=== PATIENT | female | born 1935 | race Caucasian/White ===

== ENCOUNTER 2017-12-15 14:11 | Emergency (ER) | payer MEDICARE, BC, OTHER ==
[~2017-12-15] VITALS: Ht 167.6 cm; Wt 94.3 kg
--- OUTSIDE RECORDS SUMMARY | ~2017-12-15 | XMS | Clinical Summary ---
Demographics + + + | Address | [address] [place] [address] | | | [place] [address] | + + + | Home Phone | | + + + | Preferred Language | Unknown | + + + | Marital Status | | + + + | Adventist Affiliation | Unknown | + + + | Race | Unknown | + + + | Ethnic Group | Unknown | + + + Author + + + | Author | [facility] | + + + | Organization | [email or web address] | + + + | Address | Unknown | + + + | Phone | Unavailable | + + + Support + + +---------+ + | Name | Relationship | Address | Phone | + + +---------+ + | Mack Nesbitt | ECON | Unknown | | + + +---------+ + | Rosmery Olivas | ECON | Unknown | | + + +---------+ + | Detail,Message | ECON | Unknown | | + + +---------+ + Care Team Providers + +------+ + | Care Splash Line Operator Name | Role | Phone | + +------+ + | Colin Blackwell MD | PP | | + +------+ + Allergies + + + + + + | Active Allergy | Reactions | Severity | Noted | Comments | | | | | Date | | + + + + + + | Sulfa Drugs Cross | Swelling | Medium | 05/13/19 | | | Reactors | | | 13 | | + + + + + + | Lisinopril | Swelling | Medium | 05/13/19 | | | | | | 13 | | + + + + + + Current Medications + + +--------+---------+------+------+-------+ | Prescription | Sig. | Disp. | Refills | Star | End | Statu | | | | | | t | Date | s | | | | | | Date | | | + + +--------+---------+------+------+-------+ | amLODIPine | Take 2.5 mg by mouth | | | | | Activ | | (NORVASC) 5 MG | daily. | | | | | e | | tablet | | | | | | | + + +--------+---------+------+------+-------+ | aspirin 81 MG | Take 81 mg by mouth | | | | | Activ | | tablet | daily. | | | | | e | + + +--------+---------+------+------+-------+ | Multiple | Take 1 tablet by | | | | | Activ | | Vitamins-Minerals | mouth daily. | | | | | e | | (MULTIVITAMIN WITH | | | | | | | | MINERALS) tablet | | | | | | | + + +--------+---------+------+------+-------+ | irbesartan | Take 300 mg by mouth | | | | | Activ | | (AVAPRO) 300 MG | nightly. | | | | | e | | tablet | | | | | | | + + +--------+---------+------+------+-------+ | senna (SENOKOT) | Take 1 tablet by | | | | | Activ | | 8.6 MG tablet | mouth daily. | | | | | e | + + +--------+---------+------+------+-------+ | metoprolol | Take 1 tablet by | 90 | 3 | 04/2 | | Activ | | (LOPRESSOR) 100 MG | mouth daily. | tablet | | 8/20 | | e | | tablet | | | | 17 | | | + + +--------+---------+------+------+-------+ | clopidogrel | Take 1 tablet by | 90 | 1 | 07/1 | | Activ | | (PLAVIX) 75 MG | mouth daily. | tablet | | 7/20 | | e | | tablet | | | | 17 | | | + + +--------+---------+------+------+-------+ | rosuvastatin | Take 1 tablet by | | | 02/2 | | Activ | | (CRESTOR) 40 MG | mouth daily. | | | 8/20 | | e | | tablet | | | | 18 | | | + + +--------+---------+------+------+-------+ Active Problems + + + | Problem | Noted Date | + + + | Impaired glucose tolerance | 05/14/2017 | + + + | Atherosclerotic PVD with intermittent claudication | 10/12/2012 | + + + | Bilateral claudication of lower limb | 05/13/2012 | + + + | PVD (peripheral vascular disease) | | + + + + + | Last Assessment & Plan: PAD, Hx claudication. 79yo | | WF, doing relatively well, she continues to be relatively active, | | she states that she walks daily using the [employer] as her area of | | exercise. She is able to walk around the store. She does admit | | when she first gets started, she will have some claudications, | | she stops and rests resolve, she is able to continue walking | | without any recurrent symptoms. She denies any chest pain, | | palpitations, shortness of breath. She is scheduled to follow-up | | with Dr Munoz. Recently undergoing a Lexiscan nuclear | | perfusion study, images were benign, ejection fraction normal. | | Labs anticipated. Tolerating medications. No changes in | | therapy. Peripheral angiogram, 03/07/2009: 50-60% right common | | iliac, mild diffuse disease R/L SFA's.Last Cath: naLast Echo: | | naLast stress test, 04/26/2015 ([facility]): Lexiscan, no chest | | pain, arrhythmias, ECG (-), images NML, LVEF 76%.ECG, 03/31/2014: | | NSR. | + + + +---+ | Hyperlipidemia | | + +---+ + + | Last Assessment & Plan: Hyperlipidemia, continue current meds | | at current dose (Crestor). Labs anticipated.Lab, 11/01/2014: T | | Chol: 289, LDL-Chol: na, HDL-Chol: 43, Tri | | Liver enzymes NML, K: 4.3, BUN/Cr: 13/0.9, glu: 116 | | HgbA1c: 6.5, WBC: 5.5, H/H: 13.5/39.1, plt: | | 239, ESR: 77 | + + + +---+ | HTN (hypertension) | | + +---+ + + | Last Assessment & Plan: Hypertension, controlled, continue | | current meds at current dose (amlodipine, irbesartan, | | metoprolol). | + + Family History + + +------+ + | Medical History | Relation | Name | Comments | + + +------+ + | Diabetes | Brother | | 2 brothers | + + +------+ + | Heart disease | Father | | | + + +------+ + | Heart disease | Mother | | | + + +------+ + | Hypertension | Mother | | | + + +------+ + + +------+ + + | Relation | Name | Status | Comments | + +------+ + + | Brother | | | | + +------+ + + | Father | | | | + +------+ + + | Mother | | | | + +------+ + + Social History + +-------+ +--------+ + | Tobacco Use | Types | Packs/Day | Years | Date | | | | | Used | | + +-------+ +--------+ + | Former Smoker | | 1.5 | 30 | Quit: 05/13/1982 | + +-------+ +--------+ + + +---+---+---+ | Smokeless Tobacco: | | | | | Never Used | | | | + +---+---+---+ + + | Comments: Quit 30 years ago | + + + + +---------+ + | Alcohol Use | Drinks/We | oz/Week | Comments | | | ek | | | + + +---------+ + | Yes | 0 | 0.0 | 2 drinks 4 times per week | | | Standard | | | | | drinks or | | | | | | | | | | equivalen | | | | | t | | | + + +---------+ + + + + | Sex Assigned at | Date Recorded | | | | + + + | Not on file | | + + + Last Filed Vital Signs + + + + | Vital Sign | Reading | Time Taken | + + + + | Blood Pressure | 120/78 | 05/14/2017 11:44 AM PST | + + + + | Pulse | 69 | 05/14/2017 11:44 AM PST | + + + + | Temperature | 36.4 C (97.5 F) | 10/12/2012 12:07 PM PDT | + + + + | Respiratory Rate | 16 | 05/10/2015 11:07 AM PST | + + + + | Oxygen Saturation | 96% | 05/14/2017 11:44 AM PST | + + + + | Inhaled Oxygen | - | - | | Concentration | | | + + + + | Weight | 90.6 kg (199 lb 12.8 | 05/14/2017 11:44 AM PST | | | oz) | | + + + + | Height | 167.6 cm (5' 6") | 05/14/2017 11:44 AM PST | + + + + | Body Mass Index | 32.25 | 05/14/2017 11:44 AM PST | + + + + Plan of Treatment +--------+---------+ + + + | Date | Type | Specialty | Care Team | Description | +--------+---------+ + + + | 05/06/ | Office | | Catherine Lee, | | | 2019 | Visit | | MD Aylin Groves | | | | | | Dr Vitale, | | | | | | [place] [address] | | | | | | [phone] | | | | | | | | +--------+---------+ + + + + + + + + | Health Maintenance | Due Date | Last Done | Comments | + + + + + | Vaccine: | | | | | Dtap/Tdap/Td (1 - | 7 | | | | Tdap) | | | | + + + + + | Vaccine: Zoster (1 | | | | | of 2) | 8 | | | + + + + + | DEXA SCAN SCREENING | | | | | | 3 | | | + + + + + | Vaccine: | | | | | Pneumococcal 65+ | 3 | | | | Low/Medium Risk (1 | | | | | of 2 - PCV13) | | | | + + + + + | Vaccine: Influenza | | | | | (#1) | 8 | | | + + + + + Results Not on filefrom Last 3 Months Insurance + +--------+ +------+-------+ + | Payer | Benefi | Subscriber | Type | Phone | Address | | | t Plan | ID | | | | | | / | | | | | | | Group | | | | | + +--------+ +------+-------+ + | MEDICARE | MEDICA | [id number] | | | [address] | | | RE | | | | [place] [id number] | | | IP-OP | | | | | + +--------+ +------+-------+ + | PREMERA | PREMER | [id number] | | | [address] [address] | | | A BLUE | 5 | | | [place] | | | CARD | | | | [phone] | + +--------+ +------+-------+ + | - WPS - | CHAMPV | [id number] | | | [address] [address] | | [place] | [place] | | | | [place] | | | | | | | [phone] | + +--------+ +------+-------+ + + +--------+ +--------+ + + | Guarantor Name | Accoun | Relation to | Date | Phone | Billing Address | | | t Type | Patient | of | | | | | | | | | | + +--------+ +--------+ + + | MARRY NESBITT | Person | Self [birth year] Home: | [address] [facility] | | | al/Fam | | 1936 | [phone] | [place] | | | [place] | | | [phone] | [phone] | + +--------+ +--------+ + +
--- OUTSIDE RECORDS SUMMARY | ~2017-12-15 | XMS | Clinical Summary ---
Demographics + + + | Address | [address] [place] [address] | | | [place] [address] | + + + | Home Phone | | + + + | Preferred Language | Unknown | + + + | Marital Status | | + + + | Quaker Affiliation | Unknown | + + + | Race | Unknown | + + + | Ethnic Group | Unknown | + + + Author + + + | Author | [facility] | + + + | Organization | [facility] | + + + | Address | [...] Team Providers + +------+ + | Care Insurance Verification Clerk Name | Role | Phone | + [...] states that she walks daily using the [employer] as her area of | | exercise. [...] | | | | | | [place] [address] | | | | | | [phone] | | | | | | | [...] +------+-------+ + | MEDICARE | MEDICA | [id number] | | | [address] | | | RE | | | | [place] [id number] | | | IP-OP | | | | | + +--------+ +------+-------+ + | PREMERA | PREMER | [id number] | | | [address] [address] | | | A BLUE | 5 | | | [place] | | | CARD | | | | [phone] | + +--------+ +------+-------+ + | - WPS - | CHAMPV | [id number] | | | [address] [address] | | [place] | [place] | | | | [place] | | | | | | | [address] | + +--------+ +------+-------+ + + +--------+ +--------+ + + | Guarantor Name | Accoun | Relation to | Date | Phone | Billing Address | | | t Type | Patient | of | | | | | | | | | | + +--------+ +--------+ + + | MARRY NESBITT | Person | Self [birth year] | Home: | [address] [facility] | | | al/Fam | | 1936 | [phone] | [place] | | | [place] | | | [phone] | [phone] | + +--------+ +--------+ + +
[~2017-12-15 14:11] MED LIST: ASPIRIN EC81 MG PO; CRESTOR20 MG PO; IRBESARTAN300 MG PO; METOPROLOL SUC100 MG PO; NORVASC5 MG PO; PLAVIX75 MG PO; VICODIN 5-3001 EACH PO
--- NOTE | 2017-12-16 06:49 | EKG ---
[facility] [address] [facility] [place], [place] [address] Signed Normal sinus rhythm Normal ECG No previous ECGs available Confirmed by JENNA HONG MD ([id number]) on 12/16/2017 6:49:37 AM Electronically Signed By: JENNA HONG MD 12/16/17 0649 PATIENT NAME: AMANDA NESBITT Electrocardiogram DATE OF : 39 PHYSICIAN: JENNA HONG MD REPORT #: [id number] REPORT IS CONFIDENTIAL AND NOT TO BE RELEASED WITHOUT AUTHORIZATION
== END 2017-12-15 16:45 | disposition home or self-care (01) ==
LOC: ED 14:11
DX: E86.0 Dehydration (principal); R53.1 Weakness; I10 Essential (primary) hypertension; E78.00 Pure hypercholesterolemia, unspecified; Z87.891 Personal history of nicotine dependence; Z88.2 Allergy status to sulfonamides; Z88.8 Allergy status to other drugs, medicaments and biological substances; Z79.899 Other long term (current) drug therapy; Z79.82 Long term (current) use of aspirin
CPT/HCPCS: 36415; 71045; 80053; 81001; 84484; 85025; 93005; 93010; 99284

== ENCOUNTER 2019-10-29 20:58 | Emergency (ER) | payer MEDICARE, BC, OTHER ==
[~2019-10-29] VITALS: Ht 167.6 cm; Wt 88.5 kg
--- OUTSIDE RECORDS SUMMARY | ~2019-10-29 | XMS | Encounter Summary ---
Demographics + + + | Address | [address] [place] [address] | | | [place] [address] | + + + | Home Phone | | + + + | Preferred Language | Unknown | + + + | Marital Status | | + + + | Roman Catholic Affiliation | Unknown | + + + | Race | Unknown | + + + | Ethnic Group | Unknown | + + + Author + + + | Author | [facility] | | | and [place] | + + + | Organization | [facility] | | | and [place] | + + + | Address | Unknown | + + + | Phone | Unavailable | + + + Support + + +---------+ + | Name | Relationship | Address | Phone | + + +---------+ + | Mack Alondra | ECON | Unknown | | + + +---------+ + | Rosmery Brendon | ECON | Unknown | | + + +---------+ + Care Team Providers + +------+ + | Care Barkeeper Name | Role | Phone | + +------+ + PCP | Unavailable | + +------+ + Encounter Details +--------+ + + + + | Date | Type | Department | Care Team | Description | +--------+ + + + + | 03/07/ | Hospital | [facility] | Jerome Haynes MD | Atheroscler-Limb&Cla | | 2009 | Encounter | [facility] | | elías ([facility]) | | | | CLINICAL DECISION | | | | | | [address] | | | | | | [place] | | | | | | [address] | | | | | | [phone] | | | +--------+ + + + + Social History + +-------+ +--------+------+ | Tobacco Use | Types | Packs/Day | Years | Date | | | | | Used | | + +-------+ +--------+------+ | Never Assessed | | | | | + +-------+ +--------+------+ + + + | Sex Assigned at | Date Recorded | | | | + + + | Not on file | | + + + documented as of this encounter Plan of Treatment Not on filedocumented as of this encounter Procedures + +--------+ + + + | Procedure Name | Priori | Date/Time | Associated Diagnosis | Comments | | | ty | | | | + +--------+ + + + | IR ANGIO UPPER/LOWER | Routin | 03/07/2009 | | Results for this | | EXTREMITY | e | 4:37 PM | | procedure are in the | | | | PST | | results section. | + +--------+ + + + documented in this encounter Results IR Angio Upper/Lower Extremity (03/07/2009 4:37 PM PST) + + | Specimen | + + | | + + + + + | Narrative | Performed At | + + + | Located Within [facility] | | | [facility] [address] | | | , | | | [id number]/CARDIOLOGY Patient Name: AMANDA NESBITT Date of | | | : 1935 Medical Record: [id number] Account: | | | [id number] [facility]/U [id number]/ Exam Date/Time: | | | 03/07/2009 02:30 P Ordering Provider: JEROME HAYNES Order | | | Detail: [id number] / / HCL Exam Description: CCL ANGIOGRAPHY | | | EXTREMITY LEDY | | | | | | PROCEDURES 1. Abdominal aortogram. 2. Pelvic angiogram. 3. | | | Bilateral selective lower extremity angiography with distal runoff. | | | INDICATIONS The patient is a very pleasant 73-year-old | | | lady who was suspected of having peripheral vascular disease based on | | | the findings of a coronary angiogram of the abdomen, pelvis, and | | | lower extremities revealing heavily calcified aorta with high | | | suspicion of aortoiliac bifurcation stenosis. The patient was | | | complaining of symptoms of bilateral exertional hip pain. She was | | | subsequently referred to me for a peripheral angiogram in order to | | | confirm the findings of the CT angiogram and in preparation for a | | | revascularization procedure. DESCRIPTION OF PROCEDURE The patient | | | presented to the cardiac catheterization lab in the fasting state. | | | An informed consent was obtained from the patient after explaining | | | the risks and benefits of the procedure as well as alternative | | | options. The risks of bleeding, vascular injury, infection, and even | | | were all discussed with the patient. The right groin area was | | | prepped and draped in the usual sterile fashion and local anesthesia | | | was given to the right groin with 1% lidocaine. A 4-Welsh vascular | | | sheath was inserted in the right femoral artery using modified | | | Seldinger technique. Subsequently a 4-Welsh Omni Flush catheter was | | | advanced over a wire and positioned in the abdominal aorta at the | | | level of the renal artery takeoff. An abdominal aortogram was | | | obtained in the AP projection using 20 mL of contrast. The Omni Flush | | | catheter was positioned at the distal portion of the aorta just | | | above the aortic bifurcation and the pelvic angiogram was obtained in | | | the AP projection using another 20 mL of contrast. Subsequently the | | | Omni Flush catheter was advanced over a Glidewire and positioned in | | | the left common femoral artery. Left lower extremity angiography with | | | distal runoff was then performed. Subsequently the Omni Flush | | | catheter was retrieved over a wire, and the right lower extremity | | | angiography with distal runoff was performed via the side port of the | | | vascular sheath. Multiple angiograms in different angulations was | | | performed of the right superficial femoral artery in order to have a | | | better assessment of the cci-pc-xnuhaw right SFA stenosis. | | | Subsequently an angle-tipped 4-Welsh catheter was advanced over a | | | Glidewire and positioned in the distal aorta. Pressures were recorded | | | and pullback across the right common iliac stenosis was performed, | | | did not reveal any significant pressure gradient across the stenosis. | | | Subsequently the catheter was retrieved over a wire. The sheath was | | | pulled and hemostasis was achieved with manual compression. The | | | patient was transferred out of the catheterization lab in stable | | | condition. FINDINGS ABDOMINAL AORTOGRAM The abdominal aorta | | | had mild diffuse atherosclerotic disease with mild ectasia and | | | diffuse calcification. There was no evidence of significant stenosis | | | or aneurysmal dilatation. Both renal arteries were patent with no | | | evidence of renal artery stenosis. PELVIC ANGIOGRAPHY The pelvic | | | vessels had mild diffuse disease and diffuse calcification. The right | | | common iliac artery had a 50% to 60% heavily calcified stenosis. | | | Hemodynamic assessment revealed no significant pressure gradient | | | across the stenosis. Upon catheter pullback a less than 10 mmHg | | | gradient was noted across that lesion. LEFT LOWER EXTREMITY | | | ANGIOGRAPHY The left superficial femoral artery had mild diffuse | | | disease without any significant obstructive stenosis. The left | | | popliteal artery was patent and there was 3-vessel distal runoff in | | | the left lower extremity. RIGHT LOWER EXTREMITY ANGIOGRAPHY The | | | right superficial femoral artery had mild diffuse calcification. The | | | junction between the mid and the distal right superficial femoral | | | artery had a discrete heavily calcified 65% to 70% stenosis. | | | Three-vessel distal runoff was noted in the right lower extremity. | | | CONCLUSION Peripheral vascular disease as described above with the | | | most significant stenosis estimated at 70% and located at the | | | junction between the mid and the distal right superficial femoral | | | artery. RECOMMENDATION The patient denied any exertional symptoms | | | affecting her calves. The most significant stenosis was noted in the | | | right xqi-qe-ddpsxo superficial femoral artery. That lesion could | | | not explain the patient's symptoms. The right common iliac stenosis | | | was of a borderline significance, with no evidence of significant | | | gradient across it. It appears that the vascular anatomy does not | | | explain the patient's symptoms of bilateral exertional hip pain. At | | | this point in time I would recommend medical therapy and aggressive | | | risk factor modification. Revascularization with percutaneous | | | intervention to the right superficial femoral artery will be a | | | feasible option if the patient develops more typical right lower | | | extremity claudication. ESTIMATED BLOOD LOSS Less than 50 mL. | | | Read by JEROME HAYNES MD 03/07/2009 09:23 P Electronically | | | Signed by JEROME HAYNES MD 03/30/2009 09:11 P | | | 09:23 P A /[email or web address]/[id number]/ cc: ASHLEY MCDANIEL, | | | MD JEROME HAYNES MD | | + + + + + | Procedure Note | + + | Graeme Montilla - 11/09/2018 3:20 AM PDT | | Located Within [facility] | | [facility] [address] | | , | | | | [id number]/CARDIOLOGY | | | | Patient Name: AMANDA NESBITT | | Date of : 1935 | | Medical Record: [id number] | | Account: [id number] | | OPS/CDU [id number]/ | | | | | | Exam Date/Time: 03/07/2009 02:30 P | | Ordering Provider: JEROME HAYNES | | Order Detail: [id number] / / HCL | | Exam Description: CCL ANGIOGRAPHY EXTREMITY LEDY | | | | PROCEDURES | | 1. Abdominal aortogram. | | 2. Pelvic angiogram. | | 3. Bilateral selective lower extremity angiography with distal runoff. | | | | INDICATIONS | | The patient is a very pleasant 73-year-old lady who was | | suspected of having peripheral vascular disease based on the findings of | | a coronary angiogram of the abdomen, pelvis, and lower extremities | | revealing heavily calcified aorta with high suspicion of aortoiliac | | bifurcation stenosis. The patient was complaining of symptoms of | | bilateral exertional hip pain. She was subsequently referred to me for a | | peripheral angiogram in order to confirm the findings of the CT | | angiogram and in preparation for a revascularization procedure. | | | | DESCRIPTION OF PROCEDURE | | The patient presented to the cardiac catheterization lab in the fasting | | state. An informed consent was obtained from the patient after | | explaining the risks and benefits of the procedure as well as | | alternative options. The risks of bleeding, vascular injury, infection, | | and even were all discussed with the patient. The right groin area | | was prepped and draped in the usual sterile fashion and local anesthesia | | was given to the right groin with 1% lidocaine. A 4-Welsh vascular | | sheath was inserted in the right femoral artery using modified Seldinger | | technique. Subsequently a 4-Welsh Omni Flush catheter was advanced over | | a wire and positioned in the abdominal aorta at the level of the renal | | artery takeoff. An abdominal aortogram was obtained in the AP projection | | using 20 mL of contrast. The Omni Flush catheter was positioned at the | | distal portion of the aorta just above the aortic bifurcation and the | | pelvic angiogram was obtained in the AP projection using another 20 mL | | of contrast. Subsequently the Omni Flush catheter was advanced over a | | Glidewire and positioned in the left common femoral artery. Left lower | | extremity angiography with distal runoff was then performed. | | Subsequently the Omni Flush catheter was retrieved over a wire, and the | | right lower extremity angiography with distal runoff was performed via | | the side port of the vascular sheath. Multiple angiograms in different | | angulations was performed of the right superficial femoral artery in | | order to have a better assessment of the ylw-fi-hfoyqm right SFA | | stenosis. Subsequently an angle-tipped 4-Welsh catheter was advanced | | over a Glidewire and positioned in the distal aorta. Pressures were | | recorded and pullback across the right common iliac stenosis was | | performed, did not reveal any significant pressure gradient across the | | stenosis. Subsequently the catheter was retrieved over a wire. The | | sheath was pulled and hemostasis was achieved with manual compression. | | The patient was transferred out of the catheterization lab in stable | | condition. | | | | FINDINGS | | | | ABDOMINAL AORTOGRAM | | The abdominal aorta had mild diffuse atherosclerotic disease with mild | | ectasia and diffuse calcification. There was no evidence of significant | | stenosis or aneurysmal dilatation. Both renal arteries were patent with | | no evidence of renal artery stenosis. | | | | PELVIC ANGIOGRAPHY | | The pelvic vessels had mild diffuse disease and diffuse calcification. | | The right common iliac artery had a 50% to 60% heavily calcified | | stenosis. Hemodynamic assessment revealed no significant pressure | | gradient across the stenosis. Upon catheter pullback a less than 10 mmHg | | gradient was noted across that lesion. | | | | LEFT LOWER EXTREMITY ANGIOGRAPHY | | The left superficial femoral artery had mild diffuse disease without any | | significant obstructive stenosis. The left popliteal artery was patent | | and there was 3-vessel distal runoff in the left lower extremity. | | | | RIGHT LOWER EXTREMITY ANGIOGRAPHY | | The right superficial femoral artery had mild diffuse calcification. The | | junction between the mid and the distal right superficial femoral artery | | had a discrete heavily calcified 65% to 70% stenosis. Three-vessel | | distal runoff was noted in the right lower extremity. | | | | CONCLUSION | | Peripheral vascular disease as described above with the most significant | | stenosis estimated at 70% and located at the junction between the mid | | and the distal right superficial femoral artery. | | | | RECOMMENDATION | | The patient denied any exertional symptoms affecting her calves. The | | most significant stenosis was noted in the right sgv-dd-oajvsv | | superficial femoral artery. That lesion could not explain the patient's | | symptoms. The right common iliac stenosis was of a borderline | | significance, with no evidence of significant gradient across it. It | | appears that the vascular anatomy does not explain the patient's | | symptoms of bilateral exertional hip pain. At this point in time I would | | recommend medical therapy and aggressive risk factor modification. | | Revascularization with percutaneous intervention to the right | | superficial femoral artery will be a feasible option if the patient | | develops more typical right lower extremity claudication. | | | | ESTIMATED BLOOD LOSS | | Less than 50 mL. | | | | | | Read by | | JEROME HAYNES MD 03/07/2009 09:23 P | | Electronically Signed by | | JEROME HAYNES MD 03/30/2009 09:11 P | | | | P | | A | | /[email or web address]/[id number]/ | | cc: ASHLEY MCDANIEL MD | | JEROME HAYNES MD | + + documented in this encounter Visit Diagnoses + + | Diagnosis | + + | Atherosclerosis of [place] arteries of the extremities with intermittent claudication | + + documented in this encounter"
--- OUTSIDE RECORDS SUMMARY | ~2019-10-29 | XMS | Encounter Summary ---
Demographics + + + | Address | [address] [place] [address] | | | [place] [address] | + + + | Home Phone | | + + + | Preferred Language | Unknown | + + + | Marital Status | | + + + | Yazidism Affiliation | Unknown | + + + | Race | Unknown | + + + | Ethnic Group | Unknown | + + + Author + + + | Author | [facility] | | | and [place] | + + + | Organization | [facility] | | | and [place] | + + + | Address | Unknown | + + + | Phone | Unavailable | + + + Support + + +---------+ + | Name | Relationship | Address | Phone | + + +---------+ + | Mack Cantu | ECON | Unknown | | + + +---------+ + | Rosmery Kristoferinocencia | ECON | Unknown | | + + +---------+ + Care Team Providers + +------+ + | Care Shell Trim Tool Setter Name | Role | Phone | + +------+ + | Miquel Greenfield DO | PCP | | + +------+ + Encounter Details +--------+ + + + + | Date | Type | Department | Care Team | Description | +--------+ + + + + | 05/06/ | Orders Only | [facility] | Catherine Lee, | | | 2019 | | CARDIOLOGY [place] | MD [address] | | | | | [address] | [place], [place] | | | | | [place], [place] | [address] | | | | | [address] | | | | | | [phone] | | | +--------+ + + + + Social History + +-------+ +--------+------+ | Tobacco Use | Types | Packs/Day | Years | Date | | | | | Used | | + +-------+ +--------+------+ | Former Smoker | | 1.5 | | | + +-------+ +--------+------+ + + | Comments: Quit 30 years ago | + + + + + | Sex Assigned at | Date Recorded | | | | + + + | Not on file | | + + + documented as of this encounter Plan of Treatment Not on filedocumented as of this encounter Visit Diagnoses Not on filedocumented in this encounter"
--- OUTSIDE RECORDS SUMMARY | ~2019-10-29 | XMS | Encounter Summary ---
Demographics + + + | Address | [address] [place] [address] | | | [place] [address] | + + + | Home Phone | | + + + | Preferred Language | Unknown | + + + | Marital Status | | + + + | Islam Affiliation | Unknown | + + + | Race | Unknown | + + + | Ethnic Group | Unknown | + + + Author + + + | Author | [facility] | | | and [place] | + + + | Organization | [facility] | | | and [...] Team Providers + +------+ + | Care Derrick Builder Name | Role | Phone | + +------+ + | Miquel Greenfield DO | PCP | | + +------+ + Encounter Details +--------+ + + + + | Date | Type | Department | Care Team | Description | +--------+ + + + + | 05/16/ | Orders Only | [facility] | Catherine Lee, | | | 2018 | | CARDIOLOGY [place] | MD [address] | | | | | [address] | [place], [place] | | | | | [place], [place] | [address] | | | | | [address] | | | | | | [phone] | | | +--------+ + + + [...] | + +--------+ + + + | LIPID PANEL | Routin | 05/16/2017 | | Results for this | | | e | 10:20 AM | | procedure are in the | | | | PST | | results section. | + +--------+ + + + | HEMOGLOBIN A1C | Routin | 05/16/2017 | | Results for this | | | e | 10:20 AM | | procedure are in the | | | | PST | | results section. | + +--------+ + + + | COMPREHENSIVE | Routin | 05/16/2017 | | Results for this | | METABOLIC PANEL | e | 10:20 AM | | procedure are in the | | | | PST | | results section. | + +--------+ + + + documented in this encounter Results Hemoglobin A1C (05/16/2017 10:20 AM PST) + + + + + + | Component | Value | Ref Range | Performed | Pathologist | | | | | At | Signature | + + + + + + | Hemoglobin | 6.1Comment: EST AVG | % | EXTERNAL | | | A1c | GLUCOSE 128 mg/dL | | LAB | | + + + + + + + + | Specimen | + + | Blood specimen | | (specimen) | + + + +---------+ + + | Performing | Address | City/State/Zipcode | Phone Number | | Organization | | | | + +---------+ + + | EXTERNAL LAB | | | | + +---------+ + + Lipid Panel (05/16/2017 10:20 AM PST) + +---------+ + + + | Component | Value | Ref Range | Performed | Pathologist | | | | | At | Signature | + +---------+ + + + | Cholesterol | 180 | 200 mg/dL | EXTERNAL | | | | | | LAB | | + +---------+ + + + | Triglycerid | 159 (A) | 30 - 150 mg/dL | EXTERNAL | | | es | | | LAB | | + +---------+ + + + | HDL | 55.1 | 40 mg/dl | EXTERNAL | | | | | | LAB | | + +---------+ + + + | LDL, | 93 | 100 mg/dL | EXTERNAL | | | Calculated | | | LAB | | + +---------+ + + + | LDl/HDL | | | EXTERNAL | | | Ratio | | | LAB | | + +---------+ + + + | Chol/HDL | 3.3 | 4.4 | EXTERNAL | | | Ratio | | | LAB | | + +---------+ + + + | VLDL | 32 | 4 - 40 mg/dL | EXTERNAL | | | | | | LAB | | + +---------+ + + + | Non HDL | 125 | 130 | EXTERNAL | | | Chol. | | | LAB | | | (LDL+VLDL) | | | | | + +---------+ + + + + + | Specimen | + + | Blood specimen | | (specimen) | + + + +---------+ + + | Performing | Address | City/State/Zipcode | Phone Number | | Organization | | | | + +---------+ + + | EXTERNAL LAB | | | | + +---------+ + + Comprehensive Metabolic Panel (05/16/2017 10:20 AM PST) + +-------+ + + + | Component | Value | Ref Range | Performed | Pathologist | | | | | At | Signature | + +-------+ + + + | Glucose, | 93 | 70 - 100 mg/dL | EXTERNAL | | | Fasting | | | LAB | | + +-------+ + + + | BUN | 18.8 | 6.0 - 28.6 | EXTERNAL | | | | | mg/dL | LAB | | + +-------+ + + + | Creatinine | 0.85 | 0.70 - 1.18 | EXTERNAL | | | | | mg/dL | LAB | | + +-------+ + + + | BUN/Creatin | 18.8 | 6.0 - 28.6 | EXTERNAL | | | ine Ratio | | | LAB | | + +-------+ + + + | Calcium | 9.5 | 8.4 - 10.2 | EXTERNAL | | | | | mg/dL | LAB | | + +-------+ + + + | Protein, | 6.4 | 6.0 - 8.0 g/dL | EXTERNAL | | | Total | | | LAB | | + +-------+ + + + | Albumin | 3.7 | 3.5 - 5.0 | EXTERNAL | | | | | | LAB | | + +-------+ + + + | Globulin | 2.7 | 1.8 - 3.5 | EXTERNAL | | | | | | LAB | | + +-------+ + + + | A/G Ratio | 1.4 | 1.1 - 2.4 | EXTERNAL | | | | | | LAB | | + +-------+ + + + | Bilirubin | 0.8 | 0.0 - 1.2 mg/dL | EXTERNAL | | | Total | | | LAB | | + +-------+ + + + | ALP, | 57 | 31 - 130 | EXTERNAL | | | External | | | LAB | | + +-------+ + + + | ALT | 26 | 7 - 52 U/L | EXTERNAL | | | | | | LAB | | + +-------+ + + + | AST | 27 | 13 - 39 U/L | EXTERNAL | | | | | | LAB | | + +-------+ + + + | Na | 132 | 132 - 143 | EXTERNAL | | | | | mmol/L | LAB | | + +-------+ + + + | K | 4.7 | 3.6 - 5.1 | EXTERNAL | | | | | mmol/L | LAB | | + +-------+ + + + | Cl | 95 | 95 - 112 mmol/L | EXTERNAL | | | | | | LAB | | + +-------+ + + + | CO2 | 25 | 19 - 31 mmol/L | EXTERNAL | | | | | | LAB | | + +-------+ + + + | Anion Gap | 16.7 | 7 - 21 mmol/L | EXTERNAL | | | | | | LAB | | + +-------+ + + + | Estimated | 65 | 60 mg/dL | EXTERNAL | | | GFR | | | LAB | | + +-------+ + + + + + | Specimen | + + | Blood specimen | | (specimen) | + + + +---------+ + + | Performing | Address | City/State/Zipcode | Phone Number | | Organization | | | | + +---------+ + + | EXTERNAL LAB | | | | + +---------+ + + documented in this encounter Visit Diagnoses Not on filedocumented in this encounter"
--- OUTSIDE RECORDS SUMMARY | ~2019-10-29 | XMS | Encounter Summary ---
Demographics + + + | Address | [id number] [place] [address] | | | [place] [address] | + + + | Home Phone | | + + + | Preferred Language | Unknown | + + + | Marital Status | | + + + | Pentecostal Affiliation | Unknown | + + + | Race | Unknown | + + + | Ethnic Group | Unknown | + + + Author + + + | Author | [facility] | | | and [place] | + + + | Organization | [facility] | | | and [place] | + + + | Address | Unknown | + + + | Phone | Unavailable | + + + Support + + +---------+ + | Name | Relationship | Address | Phone | + + +---------+ + | Mack Delicia | ECON | Unknown | | + + +---------+ + | Rosmery Brendon | ECON | Unknown | | + + +---------+ + Care Team Providers + +------+ + | Care Rn Occupational Name | Role | Phone | + +------+ + PCP | Unavailable | + +------+ + Encounter Details +--------+ + + + + | Date | Type | Department | Care Team | Description | +--------+ + + + + | 10/12/ | Hospital | [facility] | Conversion | Atherosclerotic PVD | | 2012 | Encounter | [facility] | Transaction, | with intermittent | | | | CLINICAL DECISION | Provider Unknown | claudication (HCC) | | | | [address] | [phone] | | | | | [place], [place] | | | | | | [address] | Eddy Douglas, | | | | | [phone] | [address] | | | | | | [place], [place] | | | | | | [address] | | | | | | | | +--------+ + + + [...] + + documented as of this encounter Medications at Time of Discharge + + + +---------+ + + | Medication | Sig | Dispensed | Refills | Start | End Date | | | | | | Date | | + + + +---------+ + + | aspirin (ASPIRIN | Take 81 mg by mouth | | 0 | 05/13/19 | | | LOW DOSE) 81 MG | daily. | | | 13 | | | tablet | | | | | | + + + +---------+ + + | Multiple | Take 1 tablet by | | 0 | 05/13/19 | | | Vitamins-Minerals | mouth daily. | | | 13 | 0 | | (MULTIVITAMIN WITH | | | | | | | MINERALS) tablet | | | | | | + + + +---------+ + + documented as of this encounter Progress Notes Conversion Transaction, Provider Unknown - 10/12/2012 5:32 PM PDTFormatting of this note m ight be different from the original. Progress Notes by Coreen Aguirre RN at 10/12/121731 Author: Coreen Aguirre RN Service: (none) Author Type: Registered Nurse Filed: 10/12/121731 Date of Service: 10/12/121731 Status: Signed Senior Account Representative: Coreen Aguirre RN (Registered Nurse) D/c instructions given and discussed, Pt. States understanding no further questions. Site c/di/ and soft. Pt. granddaughter providing transportation home. Coreen Aguirre RN docume nted in this encounter H&P Notes Jeffy Douglas MD, MD - 10/12/2012 10:44 AM PDTFormatting of this note might be diffe rent from the original. H&P by Eddy Douglas MD at 10/12/12 1041 Author: Eddy Douglas MD Service: (none) Author Type: Physician Filed: 10/12/12 1049 Date of Service: 10/12/121043 Status: Addendum Senior Account Representative: Eddy Douglas MD (Physician) Related Notes: Original Note by Eddy Douglas MD (Physician) filed at 10/12/12 1048 [facility] Service: Interventional Radiology Admission History & Physical Date of Admission: 10/12/2012 Requesting Physician: MD Sita, Interventional Radiology Reason for Admission: Right leg rest pain History Obtained From: patient HPI: She is a pleasant 77 yr old white female with known PVD and prior left EIA stenting in 04/29. Now, she presents with right LE claudication and mild left LE claudication. Claudi cation distance is 2 blocks. She has no rest pain . No tissue loss. REVIEW OF SYSTEMS:. 14 point system review was significant for :EYES:. Cataracts. Car diac/Vascular:. High blood pressure. High cholesterol. Swelling in feet and hands. L eg pain while walking. Musculoskeletal:. Arthritis. Allergy/Immunology:. sulfa drugs . Past Medical History Diagnosis Date PVD (peripheral vascular disease) Hyperlipidemia HTN (hypertension) Arthritis UTI (lower urinary tract infection) Past Surgical History Procedure Date Hysterectomy Bladder surgery Rectal surgery Allergies Allergen Reactions Sulfa Drugs Cross Reactors Swelling Zestril (Lisinopril) Swelling Prescriptions prior to admission Medication Sig Dispense Refill amLODIPine (NORVASC) 5 MG tablet Take 5 mg by mouth 2 (two) times daily. aspirin 81 MG tablet Take 81 mg by mouth daily. Stlbhhh-Kwtjrklxp-Bhzy 1000-400-15 MG TABS Take by mouth 3 (three) times daily. Cholecalciferol (D3 ADULT PO) Take by mouth. clopidogrel (PLAVIX) 75 MG tablet Take 75 mg by mouth daily. Flaxseed, Linseed, (FLAX SEEDS PO) Take by mouth daily. metoprolol (LOPRESSOR) 100 MG tablet Take 100 mg by mouth daily. Multiple Vitamins-Minerals (MULTIVITAMIN WITH MINERALS) tablet Take 1 tablet by mouth d aily. pravastatin (PRAVACHOL) 80 MG tablet Take 80 mg by mouth daily. telmisartan (MICARDIS) 80 MG tablet Take 80 mg by mouth daily. Family History Problem Relation Age of Onset Diabetes Brother 2 brothers Hypertension Mother Heart disease Mother Heart disease Father History Social History Marital Status: Spouse Name: N/A Number of Children: N/A Years of Education: N/A Occupational History Not on file. Social History Main Topics Smoking status: Former Smoker -- 1.5 packs/day for 30 years Quit date: 05/13/1982 Smokeless tobacco: Not on file Comment: Quit 30 years ago Alcohol Use: Yes 2 drinks 4 times per week Drug Use: No Sexually Active: Not on file Other Topics Concern Not on file Social History Narrative No narrative on file PHYSICAL EXAM Vital Signs: BP 140/102 | Pulse 77 | Temp 97.1 F (36.2 C) (Skin) | Resp 16 | Ht 1.676 m (5' 6") | Wt 86.183 kg (190 lb) | BMI 30.67 kg/m2 | SpO2 96% Objective General: Normotensive, in no acute distress. Head: Normocephalic, no lesions. Eyes: PER RLA, EOM's full, conjunctivae clear, fundi grossly normal. Ears: EAC's clear, TM's normal. Nose: Mucosa normal, no obstruction. Throat: Clear, no exudates, no lesions. Neck: Nair pple, no masses, no thyromegaly, no bruits. Chest: Lungs clear, no rales, no rhonchi, no w heezes. Heart: RR, no murmurs, no rubs, no gallops. Abdomen: Soft, no tenderness, no mas ses, BS normal. : Normal, no lesions, no discharge, no hernias noted. Extremities: FRO M, no deformities, no edema, no erythema. Pulses: Both F[employer] and left poplteal are felt. Lef t DP is weak. Rest not felt. Neuro: Physiological, no localizing findings. Skin: Normal, n o rashes, no lesions noted. [facility] ANGIOPLASTY FEMORAL POPLITEAL 05/13/2012 10:20 AM HISTORY:76 years. F emale. Bilateral lower extremity claudication with claudication distal lese than half a blo ck. MEDICATIONS: Isovue 250 135 cc, heparin 6000 units intravenous, Versed 2 milligram int ravenous, Fentanyl 100 microgram intravenous. Radiation dose 694 Clementina Sánchez. Fluoroscopy t zachariah 12.8 minutes. Intra procedure sedation time 65 minutes. Appropriate physiologic monito ring, maintenance of adequate conscious sedation and independent senior care supervision performed throughout the procedure. No adverse drug reactions. PROCEDURE:Informed writt en consent obtained from the patient after explaining the procedure, risks and alternatives. Patient understood the discussion and expressed her wish to proceed. The appropriate barbara e and site was labeled and initialed as an independent process antecedent to the imaging and intervention, as per protocol at this institution.? Patient was placed supine on the x-ra y table. Right groin prepped in the usual sterile fashion. Skin and subcutaneous tissues in filtrated with 1% lidocaine. Right common femoral artery was localized under real-time son ographic guidance and accessed using micropuncture needle and exchanged for 4-Chinese micropu ncture sheath over 0.018 wire. 4-Chinese micropuncture sheath was exchanged for 4-Chinese by 11-cm sheath over 0.035, 3-mm J-wire. Subsequently, 4-Chinese Omni flush catheter placed wit h its tip at the L1 vertebral level and abdominal pelvic arteriogram obtained in frontal pro jection. Subsequently, catheter was repositioned the L3 vertebral level and pelvic arteriog lindsey obtained in left anterior oblique and right anterior oblique projections. Omni flush cat heter was advanced over 0.035 angled Glidewire with its tip in the left common femoral arter y. Subsequently, selective Left lower extremity arteriogram obtained from left common femor al artery to left foot. Given the hemodynamically significant stenosis in proximal and midd le and distal thirds of the right superficial femoral artery and preocclusive stenoses of th e ostium of the left the superficial femoral artery, we decided to perform endovascular inte rvention. 4-Chinese Omni flush catheter was exchanged for 0.035, Amplatz wire with its tip in proximal left superficial femoral artery. Subsequently, catheter was removed and 4-Chinese by 11 cm sheath was exchanged for 5-Chinese by 45-cm destination sheath with its tip in proxi mal left common femoral artery. Subsequently, using combination of 4-Chinese vertebral joselito ter and 0.035, Amplatz wire both were advanced to distal left popliteal artery. Subsequentl y, Amplatz wire was exchanged for 0.014, mailman wire. Vertebral catheter was exchanged for 5 mm x 10 cm balloon catheter and balloon angioplasty of the entire length of the left supe rvision femoral artery performed in a distal to proximal fashion. Post angioplasty left thi gh arteriogram obtained. Then, pullback pressures obtained through the left external iliac artery and the proximal left common iliac artery. There was 25-mm gradient across the proxi mal left external iliac artery. Subsequently, 0.014, mailman wire was exchanged for 0.035, Amplatz wire. 5-Chinese destination sheath was exchanged for 6-Chinese by 45-cm destination s margaret. Subsequently, 8 mm x 6 cm self-expanding stent was placed across the significant foc al stenosis in proximal and mid left external iliac artery and a post angioplasty balloon di latation performed using 7 mm x 4 cm balloon catheter. Post angioplasty left iliac arteriog lindsey obtained by injecting through the side arm of the 6-Chinese destination sheath. Subseque ntly, pullback pressures obtained across the proximal right common iliac artery. There was no significant gradient. Subsequently, all catheters and wires were removed and right groin hemostasis obtained using Mynx closure device. Patient tolerated the procedure with no pro cedural complications. FINDINGS:1. Real-time image documenting the entry of micropuncture n eedle into the widely patent right common femoral artery was obtained and copy of the image placed in patient's medical records.2. Abdominal aortogram: Single left renal artery and s jan right renal artery are widely patent. Infrarenal aorta is widely patent. 50%, eccent kesha, calcific stenosis of the proximal right common iliac artery. Left common iliac artery widely patent. Ostial occlusion the left internal iliac artery. Right internal iliac arter y is widely patent. Right external iliac artery is widely patent. Focal, 70% stenosis of th e proximal and mid left external iliac artery.3. Left the lower extremity arteriogram: Preo cclusive calcific stenosis of the distal left common femoral artery extending to left the nair perficial femoral artery ostium. Focal, pre-it was a calcific stenosis in proximal, mid and distal left the superficial femoral artery. Left the popliteal artery is widely patent. T hree-vessel continuous runoff to left foot.4. Right lower extremity arteriogram: Right comm on femoral artery is widely patent. Right profunda femoris artery and its branches are unre markable. Right proximal and mid supervision femoral artery is widely patent. Diffuse calc ific, more than 70% stenosis of the distal third. Right popliteal artery, 3 vessel runoff w idely patent to right foot.5. Successful angioplasty the multifocal preocclusive stenosis i n left distal portion femoral artery using 5-mm balloon angioplasty. Successful stenting of the focal, tandem, more than 70% stenosis with 36 -mm gradient in left extra iliac artery u sing 8-mm by 6-cm self-expanding stent with no residual stenosis or gradient. 6. Aortic pres sure: 153/67 mm Hg, left distal extra iliac artery pressure: 121/73, proximal left common il iac artery pressure: 157/78, right external iliac artery pressure: 150/74 millimeters Hg. IMPRESSION:1. Successful abdominal aortogram and bilateral lower extremity arteriogram.2. Successful angioplasty of the significant multifocal preocclusive stenosis in left distal p ortion femoral artery and stenting of the femur neck is significant stenosis in left externa l iliac artery without incidence.3. Patient to return to clinic after two weeks. If patien t has persistent left lower extremity claudication may consider surgical left distal common femoral artery endarterectomy of the calcific plaque.4. Will plan for right superficial fem oral artery endovascular intervention during two weeks for follow up. Electronically sign ed by Eddy Douglas MD on 05/13/2012 12:31 PM Assessment 440.21 RIght LE claudication. Plan Right LE claudication. She would be a candidate for right LE angiogram and intervention for distal right SFA stenosis.We discussed the procedure, risks ( Bleeding, infection, contrast allergy, nephropathy, stroke, PR and ) and alternative options. Moderate Sedation Presedation Assessment completed. ASA Classification: ASA 2: Patient with a mild systemic disease Mallampati Classification: II: Visibility of hard and soft palate, upper portion of tonsil s and uvula Disposition: Cathlab Code Status: Prior Primary Care Physician: ASHLEY DOUGLAS MD 10/12/2012 documented i n this encounter Plan of Treatment Not on filedocumented as of this encounter Procedures + +--------+ + + + | Procedure Name | Priori | Date/Time | Associated Diagnosis | Comments | | | ty | | | | + +--------+ + + + | IR AORTOGRAM | Routin | 10/12/2012 | | Results for this | | ABDOMINAL W RUNOFF | e | 11:59 AM | | procedure are in the | | | | PDT | | results section. | + +--------+ + + + | IR ANGIOPLASTY FEM | Routin | 10/12/2012 | | Results for this | | POP | e | 11:59 AM | | procedure are in the | | | | PDT | | results section. | + +--------+ + + + | IR ANGIO UPPER/LOWER | Routin | 10/12/2012 | | Results for this | | EXTREMITY | e | 11:59 AM | | procedure are in the | | | | PDT | | results section. | + +--------+ + + + | US GUIDED VASCULAR | Routin | 10/12/2012 | | Results for this | | ACCESS | e | 11:57 AM | | procedure are in the | | | | PDT | | results section. | + +--------+ + + + documented in this encounter Results IR Angioplasty Fem Pop (10/12/2012 11:59 AM PDT) + + | Specimen | + + | | + + + + + | Narrative | Performed At | + + + | [facility] ANGIOGRAM EXTREMITY RIGHT 10/12/2012 10:28 AM | | | HISTORY: 77 years. Female. Right lower extremity claudication. | | | Comparison: Previous study dated April 2012 shows significant | | | mid and distal right superficial femoral artery stenosis. | | | MEDICATIONS: Isovue 250 30 cc, heparin 4300 units intravenous, | | | Versed 1 milligram intravenous, Fentanyl 50 microgram intravenous. | | | Radiation dose 125 Clementina Sánchez. Fluoroscopy time 4.5 minutes. | | | Intra procedure sedation time 42 minutes. Appropriate physiologic | | | monitoring, maintenance of adequate conscious sedation and | | | independent senior care supervision performed throughout the | | | procedure. No adverse drug reactions. PROCEDURE: | | | Informed written consent obtained from the patient after explaining | | | the procedure, risks and alternatives. Patient understood the | | | discussion and expressed her wish to proceed. The appropriate side | | | and site was labeled and initialed as an independent process | | | antecedent to the imaging and intervention, as per protocol at this | | | institution.? Patient was placed supine on the x-ray table. Left | | | groin prepped in the usual sterile fashion. Skin and subcutaneous | | | tissues infiltrated with 1% lidocaine. Left common femoral artery | | | was localized under real-time sonographic guidance and accessed | | | using micropuncture needle and exchanged for 4-Chinese micropuncture | | | sheath over 0.018 wire. 4-Chinese micropuncture sheath was exchanged | | | for 4-Chinese by 11-cm sheath over 0.035, 3-mm J-wire. Subsequently, | | | 4-Chinese Omni flush catheter placed with its tip at the L1 vertebral | | | level and abdominal pelvic arteriogram obtained in frontal | | | projection. Subsequently, catheter was repositioned the L3 vertebral | | | level and Omni flush catheter was advanced over 0.035 angled | | | Glidewire with its tip in the right common femoral artery. | | | Subsequently, selective Right lower extremity arteriogram obtained | | | from right common femoral artery to right leg. This confirmed mid | | | and distal right superficial femoral artery stenosis with prominent | | | collaterals. Given the hemodynamically significant stenosis in mid | | | and distal right suppression femoral artery, we decided to perform | | | endovascular intervention. 4-Chinese Omni flush catheter was exchanged | | | for 0.035, Amplatz wire with its tip in proximal right superficial | | | femoral artery. Subsequently, catheter was removed and 4-Chinese by | | | 11 cm sheath was exchanged for 5-Chinese by 45-cm destination sheath | | | with its tip in proximal right superficial femoral artery. | | | Subsequently, using combination of 4-Chinese vertebral catheter and | | | 0.035, Amplatz wire both were advanced to distal right popliteal | | | artery. Then, vertebral catheter was exchanged for 5-mm by 10-cm | | | balloon catheter over 0.014, mailman wire. Balloon angioplasty of | | | the mid and distal right superficial femoral artery performed in a | | | distal to proximal fashion. Then, post angioplasty right leg | | | arteriogram obtained. In all catheters and wires were removed. | | | Left groin hemostasis obtained with Mynx closure device. Patient | | | tolerated the procedure well. No procedural complications. | | | FINDINGS: 1. Real-time image documenting the entry of micropuncture | | | needle into the widely patent left common femoral artery was obtained | | | and copy of the image placed in patient's medical records. 2. | | | Pelvic arteriogram: Distal abdominal aorta, both common iliac, | | | internal and external iliac arteries are widely patent. 3. Right | | | lower extremity arteriogram: Right common femoral artery the profunda | | | femoris and its branches and proximal right superficial femoral artery | | | are widely patent. Multifocal, more than 80% stenosis involving mid | | | and distal right superficial femoral artery. Right popliteal | | | artery and 3-vessel runoff to right foot widely patent. Successful | | | angioplasty the significant stenosis and mid and distal right | | | superficial femoral artery with no significant residual anatomic | | | stenosis. IMPRESSION: 1. Successful pelvic arteriogram and | | | right lower runoff which showed significant, multiple pre-it was a | | | stenosis in mid and distal right supposed femoral artery. 2. | | | Successful angioplasty of the steno-occlusive disease involving the | | | right superficial femoral artery using balloon angioplasty with no | | | significant residual anatomic stenosis. | | + + + + + | Procedure Note | + + | Graeme Montilla Conversion - 11/06/2018 9:32 PM PDT [facility] ANGIOGRAM EXTREMITY | | RIGHT10/12/2012 10:28 AM HISTORY:77 years. Female. Right lower extremity claudication. | | Comparison: Previous study dated April 2012 shows significant mid and distal right | | superficial femoral artery stenosis. MEDICATIONS: Isovue 250 30 cc, heparin 4300 units | | intravenous, Versed 1 milligram intravenous, Fentanyl 50 microgram intravenous. | | Radiation dose 125 Clementina Sánchez. Fluoroscopy time 4.5 minutes. Intra procedure sedation | | time 42 minutes. Appropriate physiologic monitoring, maintenance of adequate conscious | | sedation and independent senior care supervision performed throughout the | | procedure. No adverse drug reactions. PROCEDURE:Informed written consent obtained | | from the patient after explaining the procedure, risks and alternatives. Patient | | understood the discussion and expressed her wish to proceed. The appropriate side and | | site was labeled and initialed as an independent process antecedent to the imaging and | | intervention, as per protocol at this institution.? Patient was placed supine on the | | x-ray table. Left groin prepped in the usual sterile fashion. Skin and subcutaneous | | tissues infiltrated with 1% lidocaine. Left common femoral artery was localized under | | real-time sonographic guidance and accessed using micropuncture needle and exchanged for | | 4-Chinese micropuncture sheath over 0.018 wire. 4-Chinese micropuncture sheath was | | exchanged for 4-Chinese by 11-cm sheath over 0.035, 3-mm J-wire. Subsequently, 4-Chinese | | Omni flush catheter placed with its tip at the L1 vertebral level and abdominal pelvic | | arteriogram obtained in frontal projection. Subsequently, catheter was repositioned the | | L3 vertebral level and Omni flush catheter was advanced over 0.035 angled Glidewire | | with its tip in the right common femoral artery. Subsequently, selective Right lower | | extremity arteriogram obtained from right common femoral artery to right leg. This | | confirmed mid and distal right superficial femoral artery stenosis with prominent | | collaterals. Given the hemodynamically significant stenosis in mid and distal right | | suppression femoral artery, we decided to perform endovascular intervention. 4-Chinese | | Omni flush catheter was exchanged for 0.035, Amplatz wire with its tip in proximal right | | superficial femoral artery. Subsequently, catheter was removed and 4-Chinese by 11 cm | | sheath was exchanged for 5-Chinese by 45-cm destination sheath with its tip in proximal | | right superficial femoral artery. Subsequently, using combination of 4-Chinese vertebral | | catheter and 0.035, Amplatz wire both were advanced to distal right popliteal artery. | | Then, vertebral catheter was exchanged for 5-mm by 10-cm balloon catheter over 0.014, | | mailman wire. Balloon angioplasty of the mid and distal right superficial femoral | | artery performed in a distal to proximal fashion. Then, post angioplasty right leg | | arteriogram obtained. In all catheters and wires were removed. Left groin hemostasis | | obtained with Mynx closure device. Patient tolerated the procedure well. No procedural | | complications. FINDINGS:1. Real-time image documenting the entry of micropuncture | | needle into the widely patent left common femoral artery was obtained and copy of the | | image placed in patient's medical records.2. Pelvic arteriogram: Distal abdominal | | aorta, both common iliac, internal and external iliac arteries are widely patent.3. | | Right lower extremity arteriogram: Right common femoral artery the profunda femoris and | | its branches and proximal right superficial femoral artery are widely patent. | | Multifocal, more than 80% stenosis involving mid and distal right superficial femoral | | artery. Right popliteal artery and 3-vessel runoff to right foot widely | | patent.Successful angioplasty the significant stenosis and mid and distal right | | superficial femoral artery with no significant residual anatomic stenosis. IMPRESSION:1. | | Successful pelvic arteriogram and right lower runoff which showed significant, | | multiple pre-it was a stenosis in mid and distal right supposed femoral artery.2. | | Successful angioplasty of the steno-occlusive disease involving the right superficial | | femoral artery using balloon angioplasty with no significant residual anatomic stenosis. | | | + + IR Angio Upper/Lower Extremity (10/12/2012 11:59 AM PDT) + + | Specimen | + + | | + + + + + | Narrative | Performed At | + + + | [facility] ANGIOGRAM EXTREMITY RIGHT 10/12/2012 10:28 AM | | | HISTORY: 77 years. Female. Right lower extremity claudication. | | | Comparison: Previous study dated April 2012 shows significant | | | mid and distal right superficial femoral artery stenosis. | | | MEDICATIONS: Isovue 250 30 cc, heparin 4300 units intravenous, | | | Versed 1 milligram intravenous, Fentanyl 50 microgram intravenous. | | | Radiation dose 125 Clementina Sánchez. Fluoroscopy time 4.5 minutes. | | | Intra procedure sedation time 42 minutes. Appropriate physiologic | | | monitoring, maintenance of adequate conscious sedation and | | | independent senior care supervision performed throughout the | | | procedure. No adverse drug reactions. PROCEDURE: | | | Informed written consent obtained from the patient after explaining | | | the procedure, risks and alternatives. Patient understood the | | | discussion and expressed her wish to proceed. The appropriate side | | | and site was labeled and initialed as an independent process | | | antecedent to the imaging and intervention, as per protocol at this | | | institution.? Patient was placed supine on the x-ray table. Left | | | groin prepped in the usual sterile fashion. Skin and subcutaneous | | | tissues infiltrated with 1% lidocaine. Left common femoral artery | | | was localized under real-time sonographic guidance and accessed | | | using micropuncture needle and exchanged for 4-Chinese micropuncture | | | sheath over 0.018 wire. 4-Chinese micropuncture sheath was exchanged | | | for 4-Chinese by 11-cm sheath over 0.035, 3-mm J-wire. Subsequently, | | | 4-Chinese Omni flush catheter placed with its tip at the L1 vertebral | | | level and abdominal pelvic arteriogram obtained in frontal | | | projection. Subsequently, catheter was repositioned the L3 vertebral | | | level and Omni flush catheter was advanced over 0.035 angled | | | Glidewire with its tip in the right common femoral artery. | | | Subsequently, selective Right lower extremity arteriogram obtained | | | from right common femoral artery to right leg. This confirmed mid | | | and distal right superficial femoral artery stenosis with prominent | | | collaterals. Given the hemodynamically significant stenosis in mid | | | and distal right suppression femoral artery, we decided to perform | | | endovascular intervention. 4-Chinese Omni flush catheter was exchanged | | | for 0.035, Amplatz wire with its tip in proximal right superficial | | | femoral artery. Subsequently, catheter was removed and 4-Chinese by | | | 11 cm sheath was exchanged for 5-Chinese by 45-cm destination sheath | | | with its tip in proximal right superficial femoral artery. | | | Subsequently, using combination of 4-Chinese vertebral catheter and | | | 0.035, Amplatz wire both were advanced to distal right popliteal | | | artery. Then, vertebral catheter was exchanged for 5-mm by 10-cm | | | balloon catheter over 0.014, mailman wire. Balloon angioplasty of | | | the mid and distal right superficial femoral artery performed in a | | | distal to proximal fashion. Then, post angioplasty right leg | | | arteriogram obtained. In all catheters and wires were removed. | | | Left groin hemostasis obtained with Mynx closure device. Patient | | | tolerated the procedure well. No procedural complications. | | | FINDINGS: 1. Real-time image documenting the entry of micropuncture | | | needle into the widely patent left common femoral artery was obtained | | | and copy of the image placed in patient's medical records. 2. | | | Pelvic arteriogram: Distal abdominal aorta, both common iliac, | | | internal and external iliac arteries are widely patent. 3. Right | | | lower extremity arteriogram: Right common femoral artery the profunda | | | femoris and its branches and proximal right superficial femoral artery | | | are widely patent. Multifocal, more than 80% stenosis involving mid | | | and distal right superficial femoral artery. Right popliteal | | | artery and 3-vessel runoff to right foot widely patent. Successful | | | angioplasty the significant stenosis and mid and distal right | | | superficial femoral artery with no significant residual anatomic | | | stenosis. IMPRESSION: 1. Successful pelvic arteriogram and | | | right lower runoff which showed significant, multiple pre-it was a | | | stenosis in mid and distal right supposed femoral artery. 2. | | | Successful angioplasty of the steno-occlusive disease involving the | | | right superficial femoral artery using balloon angioplasty with no | | | significant residual anatomic stenosis. | | + + + + + | Procedure Note | + + | Roldan, Rad Conversion - 11/06/2018 9:32 PM PDT [facility] EXTREMITY | | RIGHT10/12/2012 10:28 AM HISTORY:77 years. Female. Right lower extremity claudication. | | Comparison: Previous study dated April 2012 shows significant mid and distal right | | superficial femoral artery stenosis. MEDICATIONS: Isovue 250 30 cc, heparin 4300 units | | intravenous, Versed 1 milligram intravenous, Fentanyl 50 microgram intravenous. | | Radiation dose 125 Clementina Sánchez. Fluoroscopy time 4.5 minutes. Intra procedure sedation | | time 42 minutes. Appropriate physiologic monitoring, maintenance of adequate conscious | | sedation and independent senior care supervision performed throughout the | | procedure. No adverse drug reactions. PROCEDURE:Informed written consent obtained | | from the patient after explaining the procedure, risks and alternatives. Patient | | understood the discussion and expressed her wish to proceed. The appropriate side and | | site was labeled and initialed as an independent process antecedent to the imaging and | | intervention, as per protocol at this institution.? Patient was placed supine on the | | x-ray table. Left groin prepped in the usual sterile fashion. Skin and subcutaneous | | tissues infiltrated with 1% lidocaine. Left common femoral artery was localized under | | real-time sonographic guidance and accessed using micropuncture needle and exchanged for | | 4-Chinese micropuncture sheath over 0.018 wire. 4-Chinese micropuncture sheath was | | exchanged for 4-Chinese by 11-cm sheath over 0.035, 3-mm J-wire. Subsequently, 4-Chinese | | Omni flush catheter placed with its tip at the L1 vertebral level and abdominal pelvic | | arteriogram obtained in frontal projection. Subsequently, catheter was repositioned the | | L3 vertebral level and Omni flush catheter was advanced over 0.035 angled Glidewire | | with its tip in the right common femoral artery. Subsequently, selective Right lower | | extremity arteriogram obtained from right common femoral artery to right leg. This | | confirmed mid and distal right superficial femoral artery stenosis with prominent | | collaterals. Given the hemodynamically significant stenosis in mid and distal right | | suppression femoral artery, we decided to perform endovascular intervention. 4-Chinese | | Omni flush catheter was exchanged for 0.035, Amplatz wire with its tip in proximal right | | superficial femoral artery. Subsequently, catheter was removed and 4-Chinese by 11 cm | | sheath was exchanged for 5-Chinese by 45-cm destination sheath with its tip in proximal | | right superficial femoral artery. Subsequently, using combination of 4-Chinese vertebral | | catheter and 0.035, Amplatz wire both were advanced to distal right popliteal artery. | | Then, vertebral catheter was exchanged for 5-mm by 10-cm balloon catheter over 0.014, | | mailman wire. Balloon angioplasty of the mid and distal right superficial femoral | | artery performed in a distal to proximal fashion. Then, post angioplasty right leg | | arteriogram obtained. In all catheters and wires were removed. Left groin hemostasis | | obtained with Mynx closure device. Patient tolerated the procedure well. No procedural | | complications. FINDINGS:1. Real-time image documenting the entry of micropuncture | | needle into the widely patent left common femoral artery was obtained and copy of the | | image placed in patient's medical records.2. Pelvic arteriogram: Distal abdominal | | aorta, both common iliac, internal and external iliac arteries are widely patent.3. | | Right lower extremity arteriogram: Right common femoral artery the profunda femoris and | | its branches and proximal right superficial femoral artery are widely patent. | | Multifocal, more than 80% stenosis involving mid and distal right superficial femoral | | artery. Right popliteal artery and 3-vessel runoff to right foot widely | | patent.Successful angioplasty the significant stenosis and mid and distal right | | superficial femoral artery with no significant residual anatomic stenosis. IMPRESSION:1. | | Successful pelvic arteriogram and right lower runoff which showed significant, | | multiple pre-it was a stenosis in mid and distal right supposed femoral artery.2. | | Successful angioplasty of the steno-occlusive disease involving the right superficial | | femoral artery using balloon angioplasty with no significant residual anatomic stenosis. | | | + + IR Aortogram Abdominal w Runoff (10/12/2012 11:59 AM PDT) + + | Specimen | + + | | + + + + + | Narrative | Performed At | + + + | [facility] EXTREMITY RIGHT 10/12/2012 10:28 AM | | | HISTORY: 77 years. Female. Right lower extremity claudication. | | | Comparison: Previous study dated April 2012 shows significant | | | mid and distal right superficial femoral artery stenosis. | | | MEDICATIONS: Isovue 250 30 cc, heparin 4300 units intravenous, | | | Versed 1 milligram intravenous, Fentanyl 50 microgram intravenous. | | | Radiation dose 125 Clementina Sánchez. Fluoroscopy time 4.5 minutes. | | | Intra procedure sedation time 42 minutes. Appropriate physiologic | | | monitoring, maintenance of adequate conscious sedation and | | | independent senior care supervision performed throughout the | | | procedure. No adverse drug reactions. PROCEDURE: | | | Informed written consent obtained from the patient after explaining | | | the procedure, risks and alternatives. Patient understood the | | | discussion and expressed her wish to proceed. The appropriate side | | | and site was labeled and initialed as an independent process | | | antecedent to the imaging and intervention, as per protocol at this | | | institution.? Patient was placed supine on the x-ray table. Left | | | groin prepped in the usual sterile fashion. Skin and subcutaneous | | | tissues infiltrated with 1% lidocaine. Left common femoral artery | | | was localized under real-time sonographic guidance and accessed | | | using micropuncture needle and exchanged for 4-Chinese micropuncture | | | sheath over 0.018 wire. 4-Chinese micropuncture sheath was exchanged | | | for 4-Chinese by 11-cm sheath over 0.035, 3-mm J-wire. Subsequently, | | | 4-Chinese Omni flush catheter placed with its tip at the L1 vertebral | | | level and abdominal pelvic arteriogram obtained in frontal | | | projection. Subsequently, catheter was repositioned the L3 vertebral | | | level and Omni flush catheter was advanced over 0.035 angled | | | Glidewire with its tip in the right common femoral artery. | | | Subsequently, selective Right lower extremity arteriogram obtained | | | from right common femoral artery to right leg. This confirmed mid | | | and distal right superficial femoral artery stenosis with prominent | | | collaterals. Given the hemodynamically significant stenosis in mid | | | and distal right suppression femoral artery, we decided to perform | | | endovascular intervention. 4-Chinese Omni flush catheter was exchanged | | | for 0.035, Amplatz wire with its tip in proximal right superficial | | | femoral artery. Subsequently, catheter was removed and 4-Chinese by | | | 11 cm sheath was exchanged for 5-Chinese by 45-cm destination sheath | | | with its tip in proximal right superficial femoral artery. | | | Subsequently, using combination of 4-Chinese vertebral catheter and | | | 0.035, Amplatz wire both were advanced to distal right popliteal | | | artery. Then, vertebral catheter was exchanged for 5-mm by 10-cm | | | balloon catheter over 0.014, mailman wire. Balloon angioplasty of | | | the mid and distal right superficial femoral artery performed in a | | | distal to proximal fashion. Then, post angioplasty right leg | | | arteriogram obtained. In all catheters and wires were removed. | | | Left groin hemostasis obtained with Mynx closure device. Patient | | | tolerated the procedure well. No procedural complications. | | | FINDINGS: 1. Real-time image documenting the entry of micropuncture | | | needle into the widely patent left common femoral artery was obtained | | | and copy of the image placed in patient's medical records. 2. | | | Pelvic arteriogram: Distal abdominal aorta, both common iliac, | | | internal and external iliac arteries are widely patent. 3. Right | | | lower extremity arteriogram: Right common femoral artery the profunda | | | femoris and its branches and proximal right superficial femoral artery | | | are widely patent. Multifocal, more than 80% stenosis involving mid | | | and distal right superficial femoral artery. Right popliteal | | | artery and 3-vessel runoff to right foot widely patent. Successful | | | angioplasty the significant stenosis and mid and distal right | | | superficial femoral artery with no significant residual anatomic | | | stenosis. IMPRESSION: 1. Successful pelvic arteriogram and | | | right lower runoff which showed significant, multiple pre-it was a | | | stenosis in mid and distal right supposed femoral artery. 2. | | | Successful angioplasty of the steno-occlusive disease involving the | | | right superficial femoral artery using balloon angioplasty with no | | | significant residual anatomic stenosis. | | + + + + + | Procedure Note | + + | Roldan, Rad Conversion - 11/06/2018 9:32 PM PDT [facility] ANGIO[facility] EXTREMITY | | RIGHT10/12/2012 10:28 AM HISTORY:77 years. Female. Right lower extremity claudication. | | Comparison: Previous study dated April 2012 shows significant mid and distal right | | superficial femoral artery stenosis. MEDICATIONS: Isovue 250 30 cc, heparin 4300 units | | intravenous, Versed 1 milligram intravenous, Fentanyl 50 microgram intravenous. | | Radiation dose 125 Clementina Sánchez. Fluoroscopy time 4.5 minutes. Intra procedure sedation | | time 42 minutes. Appropriate physiologic monitoring, maintenance of adequate conscious | | sedation and independent senior care supervision performed throughout the | | procedure. No adverse drug reactions. PROCEDURE:Informed written consent obtained | | from the patient after explaining the procedure, risks and alternatives. Patient | | understood the discussion and expressed her wish to proceed. The appropriate side and | | site was labeled and initialed as an independent process antecedent to the imaging and | | intervention, as per protocol at this institution.? Patient was placed supine on the | | x-ray table. Left groin prepped in the usual sterile fashion. Skin and subcutaneous | | tissues infiltrated with 1% lidocaine. Left common femoral artery was localized under | | real-time sonographic guidance and accessed using micropuncture needle and exchanged for | | 4-Chinese micropuncture sheath over 0.018 wire. 4-Chinese micropuncture sheath was | | exchanged for 4-Chinese by 11-cm sheath over 0.035, 3-mm J-wire. Subsequently, 4-Chinese | | Omni flush catheter placed with its tip at the L1 vertebral level and abdominal pelvic | | arteriogram obtained in frontal projection. Subsequently, catheter was repositioned the | | L3 vertebral level and Omni flush catheter was advanced over 0.035 angled Glidewire | | with its tip in the right common femoral artery. Subsequently, selective Right lower | | extremity arteriogram obtained from right common femoral artery to right leg. This | | confirmed mid and distal right superficial femoral artery stenosis with prominent | | collaterals. Given the hemodynamically significant stenosis in mid and distal right | | suppression femoral artery, we decided to perform endovascular intervention. 4-Chinese | | Omni flush catheter was exchanged for 0.035, Amplatz wire with its tip in proximal right | | superficial femoral artery. Subsequently, catheter was removed and 4-Chinese by 11 cm | | sheath was exchanged for 5-Chinese by 45-cm destination sheath with its tip in proximal | | right superficial femoral artery. Subsequently, using combination of 4-Chinese vertebral | | catheter and 0.035, Amplatz wire both were advanced to distal right popliteal artery. | | Then, vertebral catheter was exchanged for 5-mm by 10-cm balloon catheter over 0.014, | | mailman wire. Balloon angioplasty of the mid and distal right superficial femoral | | artery performed in a distal to proximal fashion. Then, post angioplasty right leg | | arteriogram obtained. In all catheters and wires were removed. Left groin hemostasis | | obtained with Mynx closure device. Patient tolerated the procedure well. No procedural | | complications. FINDINGS:1. Real-time image documenting the entry of micropuncture | | needle into the widely patent left common femoral artery was obtained and copy of the | | image placed in patient's medical records.2. Pelvic arteriogram: Distal abdominal | | aorta, both common iliac, internal and external iliac arteries are widely patent.3. | | Right lower extremity arteriogram: Right common femoral artery the profunda femoris and | | its branches and proximal right superficial femoral artery are widely patent. | | Multifocal, more than 80% stenosis involving mid and distal right superficial femoral | | artery. Right popliteal artery and 3-vessel runoff to right foot widely | | patent.Successful angioplasty the significant stenosis and mid and distal right | | superficial femoral artery with no significant residual anatomic stenosis. IMPRESSION:1. | | Successful pelvic arteriogram and right lower runoff which showed significant, | | multiple pre-it was a stenosis in mid and distal right supposed femoral artery.2. | | Successful angioplasty of the steno-occlusive disease involving the right superficial | | femoral artery using balloon angioplasty with no significant residual anatomic stenosis. | | | + + US Guided Vascular Access (10/12/2012 11:57 AM PDT) + + | Specimen | + + | | + + + + + | Narrative | Performed At | + + + | [facility] EXTREMITY RIGHT 10/12/2012 10:28 AM | | | HISTORY: 77 years. Female. Right lower extremity claudication. | | | Comparison: Previous study dated April 2012 shows significant | | | mid and distal right superficial femoral artery stenosis. | | | MEDICATIONS: Isovue 250 30 cc, heparin 4300 units intravenous, | | | Versed 1 milligram intravenous, Fentanyl 50 microgram intravenous. | | | Radiation dose 125 Clementina Sánchez. Fluoroscopy time 4.5 minutes. | | | Intra procedure sedation time 42 minutes. Appropriate physiologic | | | monitoring, maintenance of adequate conscious sedation and | | | independent senior care supervision performed throughout the | | | procedure. No adverse drug reactions. PROCEDURE: | | | Informed written consent obtained from the patient after explaining | | | the procedure, risks and alternatives. Patient understood the | | | discussion and expressed her wish to proceed. The appropriate side | | | and site was labeled and initialed as an independent process | | | antecedent to the imaging and intervention, as per protocol at this | | | institution.? Patient was placed supine on the x-ray table. Left | | | groin prepped in the usual sterile fashion. Skin and subcutaneous | | | tissues infiltrated with 1% lidocaine. Left common femoral artery | | | was localized under real-time sonographic guidance and accessed | | | using micropuncture needle and exchanged for 4-Chinese micropuncture | | | sheath over 0.018 wire. 4-Chinese micropuncture sheath was exchanged | | | for 4-Chinese by 11-cm sheath over 0.035, 3-mm J-wire. Subsequently, | | | 4-Chinese Omni flush catheter placed with its tip at the L1 vertebral | | | level and abdominal pelvic arteriogram obtained in frontal | | | projection. Subsequently, catheter was repositioned the L3 vertebral | | | level and Omni flush catheter was advanced over 0.035 angled | | | Glidewire with its tip in the right common femoral artery. | | | Subsequently, selective Right lower extremity arteriogram obtained | | | from right common femoral artery to right leg. This confirmed mid | | | and distal right superficial femoral artery stenosis with prominent | | | collaterals. Given the hemodynamically significant stenosis in mid | | | and distal right suppression femoral artery, we decided to perform | | | endovascular intervention. 4-Chinese Omni flush catheter was exchanged | | | for 0.035, Amplatz wire with its tip in proximal right superficial | | | femoral artery. Subsequently, catheter was removed and 4-Chinese by | | | 11 cm sheath was exchanged for 5-Chinese by 45-cm destination sheath | | | with its tip in proximal right superficial femoral artery. | | | Subsequently, using combination of 4-Chinese vertebral catheter and | | | 0.035, Amplatz wire both were advanced to distal right popliteal | | | artery. Then, vertebral catheter was exchanged for 5-mm by 10-cm | | | balloon catheter over 0.014, mailman wire. Balloon angioplasty of | | | the mid and distal right superficial femoral artery performed in a | | | distal to proximal fashion. Then, post angioplasty right leg | | | arteriogram obtained. In all catheters and wires were removed. | | | Left groin hemostasis obtained with Mynx closure device. Patient | | | tolerated the procedure well. No procedural complications. | | | FINDINGS: 1. Real-time image documenting the entry of micropuncture | | | needle into the widely patent left common femoral artery was obtained | | | and copy of the image placed in patient's medical records. 2. | | | Pelvic arteriogram: Distal abdominal aorta, both common iliac, | | | internal and external iliac arteries are widely patent. 3. Right | | | lower extremity arteriogram: Right common femoral artery the profunda | | | femoris and its branches and proximal right superficial femoral artery | | | are widely patent. Multifocal, more than 80% stenosis involving mid | | | and distal right superficial femoral artery. Right popliteal | | | artery and 3-vessel runoff to right foot widely patent. Successful | | | angioplasty the significant stenosis and mid and distal right | | | superficial femoral artery with no significant residual anatomic | | | stenosis. IMPRESSION: 1. Successful pelvic arteriogram and | | | right lower runoff which showed significant, multiple pre-it was a | | | stenosis in mid and distal right supposed femoral artery. 2. | | | Successful angioplasty of the steno-occlusive disease involving the | | | right superficial femoral artery using balloon angioplasty with no | | | significant residual anatomic stenosis. | | + + + + + | Procedure Note | + + | Roldan, Rad Conversion - 11/06/2018 9:32 PM PDT [facility] ANGIO[facility] EXTREMITY | | RIGHT10/12/2012 10:28 AM HISTORY:77 years. Female. Right lower extremity claudication. | | Comparison: Previous study dated April 2012 shows significant mid and distal right | | superficial femoral artery stenosis. MEDICATIONS: Isovue 250 30 cc, heparin 4300 units | | intravenous, Versed 1 milligram intravenous, Fentanyl 50 microgram intravenous. | | Radiation dose 125 Clementina Sánchez. Fluoroscopy time 4.5 minutes. Intra procedure sedation | | time 42 minutes. Appropriate physiologic monitoring, maintenance of adequate conscious | | sedation and independent senior care supervision performed throughout the | | procedure. No adverse drug reactions. PROCEDURE:Informed written consent obtained | | from the patient after explaining the procedure, risks and alternatives. Patient | | understood the discussion and expressed her wish to proceed. The appropriate side and | | site was labeled and initialed as an independent process antecedent to the imaging and | | intervention, as per protocol at this institution.? Patient was placed supine on the | | x-ray table. Left groin prepped in the usual sterile fashion. Skin and subcutaneous | | tissues infiltrated with 1% lidocaine. Left common femoral artery was localized under | | real-time sonographic guidance and accessed using micropuncture needle and exchanged for | | 4-Chinese micropuncture sheath over 0.018 wire. 4-Chinese micropuncture sheath was | | exchanged for 4-Chinese by 11-cm sheath over 0.035, 3-mm J-wire. Subsequently, 4-Chinese | | Omni flush catheter placed with its tip at the L1 vertebral level and abdominal pelvic | | arteriogram obtained in frontal projection. Subsequently, catheter was repositioned the | | L3 vertebral level and Omni flush catheter was advanced over 0.035 angled Glidewire | | with its tip in the right common femoral artery. Subsequently, selective Right lower | | extremity arteriogram obtained from right common femoral artery to right leg. This | | confirmed mid and distal right superficial femoral artery stenosis with prominent | | collaterals. Given the hemodynamically significant stenosis in mid and distal right | | suppression femoral artery, we decided to perform endovascular intervention. 4-Chinese | | Omni flush catheter was exchanged for 0.035, Amplatz wire with its tip in proximal right | | superficial femoral artery. Subsequently, catheter was removed and 4-Chinese by 11 cm | | sheath was exchanged for 5-Chinese by 45-cm destination sheath with its tip in proximal | | right superficial femoral artery. Subsequently, using combination of 4-Chinese vertebral | | catheter and 0.035, Amplatz wire both were advanced to distal right popliteal artery. | | Then, vertebral catheter was exchanged for 5-mm by 10-cm balloon catheter over 0.014, | | mailman wire. Balloon angioplasty of the mid and distal right superficial femoral | | artery performed in a distal to proximal fashion. Then, post angioplasty right leg | | arteriogram obtained. In all catheters and wires were removed. Left groin hemostasis | | obtained with Mynx closure device. Patient tolerated the procedure well. No procedural | | complications. FINDINGS:1. Real-time image documenting the entry of micropuncture | | needle into the widely patent left common femoral artery was obtained and copy of the | | image placed in patient's medical records.2. Pelvic arteriogram: Distal abdominal | | aorta, both common iliac, internal and external iliac arteries are widely patent.3. | | Right lower extremity arteriogram: Right common femoral artery the profunda femoris and | | its branches and proximal right superficial femoral artery are widely patent. | | Multifocal, more than 80% stenosis involving mid and distal right superficial femoral | | artery. Right popliteal artery and 3-vessel runoff to right foot widely | | patent.Successful angioplasty the significant stenosis and mid and distal right | | superficial femoral artery with no significant residual anatomic stenosis. IMPRESSION:1. | | Successful pelvic arteriogram and right lower runoff which showed significant, | | multiple pre-it was a stenosis in mid and distal right supposed femoral artery.2. | | Successful angioplasty of the steno-occlusive disease involving the right superficial | | femoral artery using balloon angioplasty with no significant residual anatomic stenosis. | | | + + documented in this encounter Visit Diagnoses + + | Diagnosis | + + | Atherosclerotic PVD with intermittent claudication (HCC) Atherosclerosis of [place] | | arteries of the extremities with intermittent claudication | + + documented in this encounter
--- OUTSIDE RECORDS SUMMARY | ~2019-10-29 | XMS | Encounter Summary ---
Demographics + + + | Address | [id number] [place] [address] | | | [place] [address] | + + + | Home Phone | | + + + | Preferred Language | Unknown | + + + | Marital Status | | + + + | Hoahaoism Affiliation | Unknown | + + + | Race | Unknown | + + + | Ethnic Group | Unknown | + + + Author + + + | Author | [facility] | | | and [place] | + + + | Organization | [facility] | | | [...] Team Providers + +------+ + | Care Network Coordinator Name | Role | Phone | + +------+ + | Miquel Greenfield DO | PCP | | + +------+ + Encounter Details +--------+ + + + + | Date | Type | Department | Care Team | Description | +--------+ + + + + | 12/23/ | Orders Only | [facility] | Conversion | | | 2008 | | CONVERSION | Transaction, | | | | | INTERFACES [address] | Provider Unknown | | | | | [address] [place], [place] | | | | | | [address] | (Fax) | | | | | [phone] | | | +--------+ + + + [...] | + +--------+ + + + | CT ANGIOGRAM ABDOMEN | Routin | 12/23/2008 | | Results for this | | AORTA BILAT FEMORAL | e | 10:02 AM | | procedure are in the | | RUNOFF W CONTRAST | | PDT | | results section. | + +--------+ + + + documented in this encounter Results CT Angio Abd Aorta Bilat Fem Run W Cont (12/23/2008 10:02 AM PDT) + + | Specimen | + + | | + + + + + | Narrative | Performed At | + + + | Study was foreign film entered for reference only. | | + + + + + | Procedure Note | + + | Graeme Montilla - 11/09/2018 3:20 AM PDT Study was foreign film entered for | | reference only. | + + documented in this encounter Visit Diagnoses Not on filedocumented in this encounter"
--- OUTSIDE RECORDS SUMMARY | ~2019-10-29 | XMS | Encounter Summary ---
Demographics + + + | Address | [id number] [place] [address] | | | [place] [address] | + + + | Home Phone | | + + + | Preferred Language | Unknown | + + + | Marital Status | | + + + | Religion Affiliation | Unknown | + + + | Race | Unknown | + + + | Ethnic Group | Unknown | + + + Author + + + | Author | [facility] | | | and [place] | + + + | Organization | [facility] | | [...] Team Providers + +------+ + | Care Metrology Technician Name | Role | Phone | + +------+ + | Miquel Greenfield DO | PCP | | + +------+ + Reason for Visit + + + | Reason | Comments | + + + | Follow-up | | + + + Encounter Details +--------+---------+ + + + | Date | Type | Department | Care Team | Description | +--------+---------+ + + + | 05/12/ | Office | [facility] | Catherine Moody, | PVD (peripheral | | 2019 | Visit | CARDIOLOGY [facility] | MD Aylin SCHMITT | vascular disease) | | | | [address] | [place], [place] | (Primary Dx); | | | | [address] [facility] | [address] | Essential | | | | [place] | | hypertension | | | | [address] | | | | | | [phone] | | | +--------+---------+ + + + Social History + +-------+ [...] + + documented as of this encounter Last Filed Vital Signs + + + [...] + + + | Respiratory Rate | - | - | | + [...] | | + + + + + documented in this encounter Progress Notes Catherine Moody MD - 05/12/2019 11:45 AM PSTFormatting of this note might be different f rom the original. Date of visit: 05/12/2019 Primary Care Physician: Miquel Greenfield DO CHIEF COMPLAINT: Chief Complaint Patient presents with Follow-up HISTORY OF PRESENT ILLNESS: Juanita is 83 y.o. here for follow up visit. History of hypertension and peripheral vascular d isease. Denies any chest pain or shortness of breath. Continues to have lower ext claudication symptoms. Has been trying to be active. Blood pressure has been controlled. Had PTCA to LE in May and Jan 2019. Denies any weight changes, no lower extremity edema. No recent hospitalization. Past medical history, SH, FH, and medications were reviewed in the chart. Medications: Outpatient Encounter Medications as of 05/12/2019 Medication Sig Dispense Refill amLODIPine (NORVASC) 10 MG tablet Take 1 tablet by mouth daily. aspirin (ASPIRIN LOW DOSE) 81 MG tablet Take 81 mg by mouth daily. cholecalciferol (VITAMIN D-3) 25 mcg (1,000 units) tablet Take 25 mcg by mouth Daily. [DISCONTINUED] irbesartan (AVAPRO) 300 mg tablet Take 300 mg by mouth nightly. lisinopril (PRINIVIL, ZESTRIL) 5 mg tablet Take 5 mg by mouth Daily. metoprolol tartrate (LOPRESSOR) 100 mg tablet Take 1 tablet by mouth daily. 90 tablet 3 [DISCONTINUED] Multiple Vitamins-Minerals (MULTIVITAMIN WITH MINERALS) tablet Take 1 ta blet by mouth daily. rosuvastatin (CRESTOR) 40 MG tablet Take 1 tablet by mouth daily. senna (SENNA) 8.6 mg tablet Take 1 tablet by mouth daily. No facility-administered encounter medications on file as of 05/12/2019. Allergies Allergies Allergen Reactions Sulfa Drugs Cross Reactors Swelling Zestril [Lisinopril] Swelling REVIEW OF SYSTEMS: Constitutional: negative for fatigue. No fever, chills, and rigors. No report of weight ch kath. HEENT: Negative for nosebleeds, ear discharge, nasal congestion or soar throat. Eyes: Negative for visual disturbance, redness, or secretion. Respiratory: Negative for cough, sputum production, hemoptysis, wheezing. Cardiovascular: HPI. Gastrointestinal: Negative for nausea, vomiting, diarrhea, abdominal pain and blood in stoo l. Genitourinary: Negative for dysuria or hematuria. Musculoskeletal: chronic arthritic pain. Positive for claudication. Skin: Negative for rash. Neurological: Negative for dizziness. No numbness. No recent falls. No slurred speech. Hematological: No significant bruising. Psychiatric/Behavioral: No depression or anxiety. PHYSICAL EXAM Vital Signs: BP 106/58 | Pulse 69 | Ht 1.676 m (5' 6") | Wt 88.5 kg (195 lb) | SpO2 96% | BMI 31.47 kg/m GENERAL APPEARANCE: Alert, oriented, cooperative, no distress, appears stated age. HEENT: Extraocular movements were intact. No jaundice. Pupiles round and reactive. NECK: No JVD, lymphadenopathy. Carotid upstrokes normal. CARDIAC: Regular rhythm and rate. There is normal S1 and S2. No galop. No murmur. CHEST: Normal bilateral symmetrical chest excursion.ackles or wheezing. ABDOMEN: Soft.No tenderness or guarding. No palpable organs. Active bowel sounds. EXTREMITIES: No lower extremities edema, cyanosis or clubbing. NEURO: Alert and oriented times three with no focal deficit. Cranial nerves are grossly no rmal. SKIN: Warm and dry. No rash. Psych: Normal affect and mood. DATA Lab Results Component Value Date/Time NA 132 05/16/2017 10:20 AM K 4.7 05/16/2017 10:20 AM CO2 25 05/16/2017 10:20 AM BUN 18.8 05/16/2017 10:20 AM CALCIUM 9.5 05/16/2017 10:20 AM No results found for: WBC, HGB, HCT, MCV, LABPLAT Lab Results Component Value Date ALT 26 05/16/2017 CHOL 180 05/16/2017 TRIG 159 (A) 05/16/2017 HDL 55.1 05/16/2017 GLUF 93 05/16/2017 EC05/12/2019 Ordered and reviewed by myself showed sinus rhythm. Normal ECG. Last Echo: Last stress test, 04/26/2015 ([facility]): Lexiscan, no chest pain, arrhythmias, ECG (-), images NML, LVEF 76%. Last Cath: Last US carotid: 05/13/2012: 8 mm x 6 cm self-expanding stent was placed across the significant focal stenosis in proxim al and mid left external iliac artery. October 12/2013: Successful angioplasty the significant stenosis and mid and distal right superficial femora l artery. Peripheral angiogram, 03/07/2009: 50-60% right common iliac, mild diffuse disease R/L SFA's. ASSESSMENT: Patient is 83 y.o. with 1. Severe peripheral vascular disease status post right external iliac stent and angioplast y of the right SFA. 2. Hypertension blood pressure was controlled. 3. Dyslipidemia on statin. 4. Preserved ejection fraction on stress test. Plan: Continue with rosuvastatin. On amlodipine 10 mg, Lisinopril 5 mg and metoprolol succinate 100 mg. Will continue to follow up with vascular surgery. Continue with aspirin. Follow-up in 1 year or earlier if needed. *This report has been prepared using a voice recognition system. The report was reviewed fo r accuracy, however, sound-alike word errors, addition and/or deletions may occur. If there is any question about this report please contact me. Catherine Moody MD, MPH documented in this encounter Plan of Treatment Not on filedocumented as of this encounter Procedures + +--------+ + + + | Procedure Name | Priori | Date/Time | Associated Diagnosis | Comments | | | ty | | | | + +--------+ + + + | ECG 12 LEAD | Routin | 05/12/2019 | PVD (peripheral | Results for this | | | e | 11:52 AM | vascular disease) | procedure are in the | | | | PST | Essential | results section. | | | | | hypertension | | + +--------+ + + + documented in this encounter Results ECG 12 lead (05/12/2019 11:52 AM PST) + + + + + + | Component | Value | Ref Range | Performed | Pathologist | | | | | At | Signature | + + + + + + | VENTRICULAR | 64 | BPM | [facility] | | | RATE EKG | | | | | + + + + + + | ATRIAL RATE | 64 | BPM | [facility] | | + + + + + + | P-R | 192 | ms | [facility] | | | INTERVAL | | | | | + + + + + + | QRS | 82 | ms | [facility] | | | DURATION | | | | | + + + + + + | Q-T | 422 | ms | [facility] | | | INTERVAL | | | | | + + + + + + | Q-T | 435 | ms | [facility] | | | INTERVAL | | | | | | (CORRECTED) | | | | | + + + + + + | P WAVE AXIS | 49 | degrees | [facility] | | + + + + + + | QRS AXIS | 15 | degrees | [facility] | | + + + + + + | T AXIS | 47 | degrees | [facility] | | + + + + + + | INTERPRETAT | Normal sinus | | [facility] | | | ION TEXT | rhythmNormal ECGWhen | | | | | | compared with ECG of | | | | | | 14-MAY-2017 11:52,No | | | | | | significant change was | | | | | | foundConfirmed by | | | | | | Catherine Moody MD | | | | | | ([id number]) on 05/12/2019 | | | | | | 1:12:23 PM | | | | + + + + + + + + | Specimen | + + | | + + + + + | Narrative | Performed At | + + + | | | + + + + +---------+ + + | Performing | Address | City/State/Zipcode | Phone Number | | Organization | | | | + +---------+ + + | [facility] | | | | + +---------+ + + documented in this encounter Visit Diagnoses + + | Diagnosis | + + | PVD (peripheral vascular disease) - Primary Peripheral vascular disease, unspecified | + + | Essential hypertension Unspecified essential hypertension | + + documented in this encounter
--- OUTSIDE RECORDS SUMMARY | ~2019-10-29 | XMS | Encounter Summary ---
Demographics + + + | Address | [address] [place] [address] | | | [place] [address] | + + + | Home Phone | | + + + | Preferred Language | Unknown | + + + | Marital Status | | + + + | Quaker Affiliation | Unknown | + + + | Race | Unknown | + + + | Ethnic Group | Unknown | + + + Author + + + | Author | [facility] | | | and [place] | + + + | Organization | [facility] | | [...] Team Providers + +------+ + | Care Block Paver Name | Role | Phone | + +------+ + | Miquel Gerenfield DO | PCP | | + +------+ [...] Provider Unknown | | | | | [place], [place] | [phone] | | | | | [address] | | | | | | [phone] | | | +--------+ + + + [...]
--- OUTSIDE RECORDS SUMMARY | ~2019-10-29 | XMS | Encounter Summary ---
Demographics + + + | Address | [address] [place] [address] | | | [place] [address] | + + + | Home Phone | | + + + | Preferred Language | Unknown | + + + | Marital Status | | + + + | Alevism Affiliation | Unknown | + + + | Race | Unknown | + + + | Ethnic Group | Unknown | + + + Author + + + | Author | [facility] | | | and [place] | + + + | Organization | [facility] | | [...] Team Providers + +------+ + | Care Tax Associate Name | Role | Phone | + +------+ + | Miquel Greenfield DO | PCP | | + +------+ + Encounter Details +--------+ + + + + | Date | Type | Department | Care Team | Description | +--------+ + + + + | 07/12/ | Orders Only | [facility] | Catherine Lee, | | | 2017 | | CARDIOLOGY [facility] | MD [address] | | | | | [address] | [place], [place] | | | | | [place], [place] | [address] | | | | | [address] | | | | | | [phone] | | | +--------+ + + + [...]
--- OUTSIDE RECORDS SUMMARY | ~2019-10-29 | XMS | Encounter Summary ---
Demographics + + + | Address | [address] [place] [address] | | | [place] [address] | + + + | Home Phone | | + + + | Preferred Language | Unknown | + + + | Marital Status | | + + + | Faith Affiliation | Unknown | + + + | Race | Unknown | + + + | Ethnic Group | Unknown | + + + Author + + + | Author | [facility] | | | and [place] | + + + | Organization | [facility] | | | and [...] Team Providers + +------+ + | Care Ethylbenzene Converter Operator Name | Role | Phone | + +------+ + PCP | Unavailable | + +------+ + Encounter Details +--------+ + + + + | Date | Type | Department | Care Team | Description | +--------+ + + + + | 05/13/ | Hospital | [facility] | Conversion | Atherosclerosis of | | 2012 - | Encounter | MEDICAL CENTER | Transaction, | [place] arteries of | | | | CLINICAL DECISION | Provider Unknown | the extremities with | | 05/14/ | | [address] | [phone] | intermittent | | 2012 | | [place], [place] | | claudication (HCC) | | | | [address] | Tila Mohan, | | | | | [phone] | MD [address] | | | | | [address] | | | | | | [place] [address] | | | | | | [phone] | | | | | | | [...] Physician Filed: 05/14/12 0848 Date of Service: 05/14/1241 Status: Signed Pool Table Operator: Rush Buckner MD (Physician) [facility] Service: Interventional Radiology Discharge Summary Date of [...] tablet Take 81 mg by mouth daily. Ntqhomf-Rfsjyewiw-Pftg 1000-400-15 MG TABS Take by mouth 3 [...] normal. Right groin supple. No tenderness. Right INTRANET SUPPORT and left poplitela pulse well felt. DATA [...] up: Delano Vargas MD [address] [phone] Make an appointment Rush Buckner MD [address] [facility] [phone] in 2 weeks Current Discharge Medication List CONTINUE these medications which have NOT CHANGED Details amLODIPine (NORVASC) 5 MG tablet Take 5 mg by mouth 2 (two) times daily. aspirin 81 MG tablet Take 81 mg by mouth daily. 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 Pt st able and voicing no complaints. Voices understanding of discharge instructions. Personal bel ongings with pt. onver donny Transaction, Provider Unknown - 05/14/2012 8:52 AM PST Progress Notes by Dee Valencia RN at 05/14/12851 Author: Dee Valencia RN Service: (none) Author Type: Registered Nurse Filed: 05/14/1253 Date of Service: 05/14/12851 Status: Signed Pool Table Operator: Dee Valencia RN (Registered Nurse) Assumed care of pt at this time from Mónica Lyman RN. Pt with discharge order per Dr Gaudencio fung onver donny Transaction, Provider Unknown - 05/14/2012 8:37 AM PST Progress Notes by Dee Valencia RN at 05/14/12836 Author: Dee Valencia RN Service: (none) Author Type: Registered Nurse Filed: 05/14/12836 Date of Service: 05/14/12836 Status: Signed Pool Table Operator: Dee Valencia, RN (Registered Nurse) Dr Sita dykes. docume nted in this encounter H&P Notes Bart Lewis NP - 05/13/2012 9:05 AM PST H&P by LIEN Cardenas at 05/13/12 09 Author: LIEN Cardenas Service: Interventional Radiology Author Type: Advanced R egistered Nurse Practitioner Filed: 05/13/12 1036 Date of Service: 05/13/12904 Status: Signed Pool Table Operator: LIEN Cardenas (Advanced Registered Nurse Practitioner) [facility] Service: Interventional Radiology Pre-Operative History & Physical [...] 5 MG tablet aspirin 81 MG tablet Byzvfmk-Nujcpwozu-Ewcx 1000-400-15 MG TABS Cholecalciferol (D3 ADULT PO) [...] conscious sedation and | | | independent correction supervision performed throughout the | | | [...] | using micropuncture needle and exchanged for 4-Bahamian micropuncture | | | sheath over 0.018 wire. 4-Bahamian micropuncture sheath was exchanged | | | for 4-Bahamian by 11-cm sheath over 0.035, 3-mm J-wire. Subsequently, | | | 4-Bahamian Omni flush catheter placed with its tip [...] | | decided to perform endovascular intervention. 4-Bahamian Omni flush | | | catheter was exchanged for 0.035, Amplatz wire with its tip in | | | proximal left superficial femoral artery. Subsequently, catheter was | | | removed and 4-Bahamian by 11 cm sheath was exchanged for 5-Bahamian by | | | 45-cm destination sheath with its tip in proximal left common | | | femoral artery. Subsequently, using combination of 4-Bahamian | | | vertebral catheter and 0.035, [...] for | | | 0.035, Amplatz wire. 5-Bahamian destination sheath was exchanged for | | | 6-Bahamian by 45-cm destination sheath. Subsequently, 8 mm [...] | through the side arm of the 6-Bahamian destination sheath. | | | Subsequently, pullback [...] maintenance of adequate conscious sedation and independent correction supervision | | performed throughout the procedure. [...] | | micropuncture needle and exchanged for 4-Bahamian micropuncture sheath over 0.018 wire. | | 4-Bahamian micropuncture sheath was exchanged for 4-Bahamian by 11-cm sheath over 0.035, | | 3-mm J-wire. Subsequently, 4-Bahamian Omni flush catheter placed with its tip [...] | | decided to perform endovascular intervention. 4-Bahamian Omni flush catheter was exchanged | | for 0.035, Amplatz wire with its tip in proximal left superficial femoral artery. | | Subsequently, catheter was removed and 4-Bahamian by 11 cm sheath was exchanged for | | 5-Bahamian by 45-cm destination sheath with its tip in proximal left common femoral | | artery. Subsequently, using combination of 4-Bahamian vertebral catheter and 0.035, | | Amplatz [...] wire was exchanged for 0.035, Amplatz wire. 5-Bahamian destination sheath was exchanged | | for 6-Bahamian by 45-cm destination sheath. Subsequently, 8 mm [...] | | the side arm of the 6-Bahamian destination sheath. Subsequently, pullback pressures | | [...] conscious sedation and | | | independent correction supervision performed throughout the | | | [...] | using micropuncture needle and exchanged for 4-Bahamian micropuncture | | | sheath over 0.018 wire. 4-Bahamian micropuncture sheath was exchanged | | | for 4-Bahamian by 11-cm sheath over 0.035, 3-mm J-wire. Subsequently, | | | 4-Bahamian Omni flush catheter placed with its tip [...] | | decided to perform endovascular intervention. 4-Bahamian Omni flush | | | catheter was exchanged for 0.035, Amplatz wire with its tip in | | | proximal left superficial femoral artery. Subsequently, catheter was | | | removed and 4-Bahamian by 11 cm sheath was exchanged for 5-Bahamian by | | | 45-cm destination sheath with its tip in proximal left common | | | femoral artery. Subsequently, using combination of 4-Bahamian | | | vertebral catheter and 0.035, [...] for | | | 0.035, Amplatz wire. 5-Bahamian destination sheath was exchanged for | | | 6-Bahamian by 45-cm destination sheath. Subsequently, 8 mm [...] | through the side arm of the 6-Bahamian destination sheath. | | | Subsequently, pullback [...] maintenance of adequate conscious sedation and independent correction supervision | | performed throughout the procedure. [...] | | micropuncture needle and exchanged for 4-Bahamian micropuncture sheath over 0.018 wire. | | 4-Bahamian micropuncture sheath was exchanged for 4-Bahamian by 11-cm sheath over 0.035, | | 3-mm J-wire. Subsequently, 4-Bahamian Omni flush catheter placed with its tip [...] | | decided to perform endovascular intervention. 4-Bahamian Omni flush catheter was exchanged | | for 0.035, Amplatz wire with its tip in proximal left superficial femoral artery. | | Subsequently, catheter was removed and 4-Bahamian by 11 cm sheath was exchanged for | | 5-Bahamian by 45-cm destination sheath with its tip in proximal left common femoral | | artery. Subsequently, using combination of 4-Bahamian vertebral catheter and 0.035, | | Amplatz [...] wire was exchanged for 0.035, Amplatz wire. 5-Bahamian destination sheath was exchanged | | for 6-Bahamian by 45-cm destination sheath. Subsequently, 8 mm [...] | | the side arm of the 6-Bahamian destination sheath. Subsequently, pullback pressures | | [...] conscious sedation and | | | independent correction supervision performed throughout the | | | [...] | using micropuncture needle and exchanged for 4-Bahamian micropuncture | | | sheath over 0.018 wire. 4-Bahamian micropuncture sheath was exchanged | | | for 4-Bahamian by 11-cm sheath over 0.035, 3-mm J-wire. Subsequently, | | | 4-Bahamian Omni flush catheter placed with its tip [...] | | decided to perform endovascular intervention. 4-Bahamian Omni flush | | | catheter was exchanged for 0.035, Amplatz wire with its tip in | | | proximal left superficial femoral artery. Subsequently, catheter was | | | removed and 4-Bahamian by 11 cm sheath was exchanged for 5-Bahamian by | | | 45-cm destination sheath with its tip in proximal left common | | | femoral artery. Subsequently, using combination of 4-Bahamian | | | vertebral catheter and 0.035, [...] for | | | 0.035, Amplatz wire. 5-Bahamian destination sheath was exchanged for | | | 6-Bahamian by 45-cm destination sheath. Subsequently, 8 mm [...] | through the side arm of the 6-Bahamian destination sheath. | | | Subsequently, pullback [...] maintenance of adequate conscious sedation and independent correction supervision | | performed throughout the procedure. [...] | | micropuncture needle and exchanged for 4-Bahamian micropuncture sheath over 0.018 wire. | | 4-Bahamian micropuncture sheath was exchanged for 4-Bahamian by 11-cm sheath over 0.035, | | 3-mm J-wire. Subsequently, 4-Bahamian Omni flush catheter placed with its tip [...] | | decided to perform endovascular intervention. 4-Bahamian Omni flush catheter was exchanged | | for 0.035, Amplatz wire with its tip in proximal left superficial femoral artery. | | Subsequently, catheter was removed and 4-Bahamian by 11 cm sheath was exchanged for | | 5-Bahamian by 45-cm destination sheath with its tip in proximal left common femoral | | artery. Subsequently, using combination of 4-Bahamian vertebral catheter and 0.035, | | Amplatz [...] wire was exchanged for 0.035, Amplatz wire. 5-Bahamian destination sheath was exchanged | | for 6-Bahamian by 45-cm destination sheath. Subsequently, 8 mm [...] | | the side arm of the 6-Bahamian destination sheath. Subsequently, pullback pressures | | [...] conscious sedation and | | | independent correction supervision performed throughout the | | | [...] | using micropuncture needle and exchanged for 4-Bahamian micropuncture | | | sheath over 0.018 wire. 4-Bahamian micropuncture sheath was exchanged | | | for 4-Bahamian by 11-cm sheath over 0.035, 3-mm J-wire. Subsequently, | | | 4-Bahamian Omni flush catheter placed with its tip [...] | | decided to perform endovascular intervention. 4-Bahamian Omni flush | | | catheter was exchanged for 0.035, Amplatz wire with its tip in | | | proximal left superficial femoral artery. Subsequently, catheter was | | | removed and 4-Bahamian by 11 cm sheath was exchanged for 5-Bahamian by | | | 45-cm destination sheath with its tip in proximal left common | | | femoral artery. Subsequently, using combination of 4-Bahamian | | | vertebral catheter and 0.035, [...] for | | | 0.035, Amplatz wire. 5-Bahamian destination sheath was exchanged for | | | 6-Bahamian by 45-cm destination sheath. Subsequently, 8 mm [...] | through the side arm of the 6-Bahamian destination sheath. | | | Subsequently, pullback [...] maintenance of adequate conscious sedation and independent correction supervision | | performed throughout the procedure. [...] | | micropuncture needle and exchanged for 4-Bahamian micropuncture sheath over 0.018 wire. | | 4-Bahamian micropuncture sheath was exchanged for 4-Bahamian by 11-cm sheath over 0.035, | | 3-mm J-wire. Subsequently, 4-Bahamian Omni flush catheter placed with its tip [...] | | decided to perform endovascular intervention. 4-Bahamian Omni flush catheter was exchanged | | for 0.035, Amplatz wire with its tip in proximal left superficial femoral artery. | | Subsequently, catheter was removed and 4-Bahamian by 11 cm sheath was exchanged for | | 5-Bahamian by 45-cm destination sheath with its tip in proximal left common femoral | | artery. Subsequently, using combination of 4-Bahamian vertebral catheter and 0.035, | | Amplatz [...] wire was exchanged for 0.035, Amplatz wire. 5-Bahamian destination sheath was exchanged | | for 6-Bahamian by 45-cm destination sheath. Subsequently, 8 mm [...] | | the side arm of the 6-Bahamian destination sheath. Subsequently, pullback pressures | | [...] conscious sedation and | | | independent correction supervision performed throughout the | | | [...] | using micropuncture needle and exchanged for 4-Bahamian micropuncture | | | sheath over 0.018 wire. 4-Bahamian micropuncture sheath was exchanged | | | for 4-Bahamian by 11-cm sheath over 0.035, 3-mm J-wire. Subsequently, | | | 4-Bahamian Omni flush catheter placed with its tip [...] | | decided to perform endovascular intervention. 4-Bahamian Omni flush | | | catheter was exchanged for 0.035, Amplatz wire with its tip in | | | proximal left superficial femoral artery. Subsequently, catheter was | | | removed and 4-Bahamian by 11 cm sheath was exchanged for 5-Bahamian by | | | 45-cm destination sheath with its tip in proximal left common | | | femoral artery. Subsequently, using combination of 4-Bahamian | | | vertebral catheter and 0.035, [...] for | | | 0.035, Amplatz wire. 5-Bahamian destination sheath was exchanged for | | | 6-Bahamian by 45-cm destination sheath. Subsequently, 8 mm [...] | through the side arm of the 6-Bahamian destination sheath. | | | Subsequently, pullback [...] | microgram intravenous. Radiation dose 6[address] Sá[address]. Fluoroscopy time 12.8 minutes. | | Intra procedure sedation time 65 minutes. Appropriate physiologic monitoring, | | maintenance of adequate conscious sedation and independent correction supervision | | performed throughout the procedure. [...] | | micropuncture needle and exchanged for 4-Bahamian micropuncture sheath over 0.018 wire. | | 4-Bahamian micropuncture sheath was exchanged for 4-Bahamian by 11-cm sheath over 0.035, | | 3-mm J-wire. Subsequently, 4-Bahamian Omni flush catheter placed with its tip [...] | | decided to perform endovascular intervention. 4-Bahamian Omni flush catheter was exchanged | | for 0.035, Amplatz wire with its tip in proximal left superficial femoral artery. | | Subsequently, catheter was removed and 4-Bahamian by 11 cm sheath was exchanged for | | 5-Bahamian by 45-cm destination sheath with its tip in proximal left common femoral | | artery. Subsequently, using combination of 4-Bahamian vertebral catheter and 0.035, | | Amplatz [...] wire was exchanged for 0.035, Amplatz wire. 5-Bahamian destination sheath was exchanged | | for 6-Bahamian by 45-cm destination sheath. Subsequently, 8 mm [...] | | the side arm of the 6-Bahamian destination sheath. Subsequently, pullback pressures | | [...] Diagnosis | + + | Atherosclerosis of [place] arteries of the extremities with intermittent claudication | + + documented in this encounter
--- OUTSIDE RECORDS SUMMARY | ~2019-10-29 | XMS | Encounter Summary ---
Demographics + + + | Address | [address] [place] [address] | | | [place] [address] | + + + | Home Phone | | + + + | Preferred Language | Unknown | + + + | Marital Status | | + + + | Orthodox Affiliation | Unknown | + + + | Race | Unknown | + + + | Ethnic Group | Unknown | + + + Author + + + | Author | [facility] | | | and [place] | + + + | Organization | [facility] | | [...] Team Providers + +------+ + | Care Director Field Services Name | Role | Phone | + +------+ + | Miquel Greenfield DO | PCP | | + +------+ + Encounter Details +--------+ + + + + | Date | Type | Department | Care Team | Description | +--------+ + + + + | 04/17/ | Orders Only | [facility] | Catherine Lee, | | | 2017 | | CARDIOLOGY [place] | MD [address] | | | | | [address] | [place], [place] | | | | | [place], [place] | [address] | | | | | [address] | | | | | | [phone] | | | +--------+ + + + [...] | | | | | by [facility] [place] Read Only, | | | | | | [facility] Germain ([id number]), | | | | | | editorial cartoonist Cyril Parrish | | | | | | (253) on 05/24/2016 | | | | | | 10:24:34 AM | | | | + + + + + + + + | Specimen | + + | | + + + + + | Narrative | Performed At | + + + | [facility] Epic environment | EXTERNAL LAB | + + + + +---------+ + + | Performing | Address | City/State/Zipcode | Phone Number | | Organization | | | | + +---------+ + + | EXTERNAL LAB | | | | + +---------+ + + documented in this encounter Visit Diagnoses Not on filedocumented in this encounter"
--- OUTSIDE RECORDS SUMMARY | ~2019-10-29 | XMS | Encounter Summary ---
Demographics + + + | Address | [address] [place] [address] | | | [place] [address] | + + + | Home Phone | | + + + | Preferred Language | Unknown | + + + | Marital Status | | + + + | Confucianist Affiliation | Unknown | + + + | Race | Unknown | + + + | Ethnic Group | Unknown | + + + Author + + + | Author | [facility] | | | and [place] | + + + | Organization | [facility] | | | [...] Team Providers + +------+ + | Care Lead Driver Name | Role | Phone | + +------+ + | Miquel Greenfield DO | PCP | | + +------+ + Encounter Details +--------+ + + + + | Date | Type | Department | Care Team | Description | +--------+ + + + + | 05/14/ | Orders Only | [facility] | Catherine Lee, | | | 2018 | | CARDIOLOGY [place] | MD [address] | | | | | [address] | [place], [place] | | | | | [place], [place] | [address] | | | | | [address] | | | | | | [phone] | | | +--------+ + + + [...]
--- OUTSIDE RECORDS SUMMARY | ~2019-10-29 | XMS | Encounter Summary ---
Demographics + + + | Address | [address] [place] [address] | | | [place] [address] | + + + | Home Phone | | + + + | Preferred Language | Unknown | + + + | Marital Status | | + + + | Latter Day Affiliation | Unknown | + + + | Race | Unknown | + + + | Ethnic Group | Unknown | + + + Author + + + | Author | [facility] | | | and [place] | + + + | Organization | [facility] | | | [...] Team Providers + +------+ + | Care Colorman Name | Role | Phone | + [...] Provider Unknown | | | | | [place], [place] | [phone] | | | | | [address] | | | | | | [phone] | | | +--------+ + + + [...]
--- OUTSIDE RECORDS SUMMARY | ~2019-10-29 | XMS | Clinical Summary ---
Demographics + + + | Address | [address] [place] [address] | | | [place] [address] | + + + | Home Phone | | + + + | Preferred Language | Unknown | + + + | Marital Status | | + + + | Christian Affiliation | Unknown | + + + | Race | Unknown | + + + | Ethnic Group | Unknown | + + + Author + + + | Author | [facility] | | | and [place] | + + + | Organization | [facility] | | [...] Team Providers + +------+ + | Care Fire Safety Director Name | Role | Phone | + [...] 1 tablet by | | 0 | / | | Activ | | mg tablet [...] +--------+ +---------+--------+ | MEDICARE | MEDICA | [id number] | 06/16/19 | [phone] | | Medica | | | RE | | 03-Pre | 5 | | re | | | PART A | | sent | | | | | | AND B | | | | | | + +--------+ +--------+ +---------+--------+ | BCBS | BCBS | [id number] | 09/15/19 | | | Indemn | | | OOS | 5 | 19-Pre | | | ity | | | PAR | | sent | | | | + +--------+ +--------+ +---------+--------+ | | CHAMPV | [id number] | | [phone] | | Indemn | [...] Person | Self | [birth year] | [address] | | | al/Simeon | | 1936 | [phone] | [place] | | | mely | | | 1 (Home) | [address] | + +--------+ +--------+ + + Advance Directives + + + + + | Type | Date Recorded | Patient | Explanation | | | | Bath Solution Maker | | + + + + + | Power of | | | | | Plywood And Veneer Repairer | | | | + + + + + | Advance | | | | | Directive | | | | + + + + +
--- NOTE | 2019-10-30 17:35 | EKG ---
[facility] [address] [facility] [place], [place] [address] Signed Sinus rhythm with 1st degree AV block Prolonged QT Abnormal ECG When compared with ECG of 15-DEC-2017 14:23, AR interval has increased Confirmed by MARY ANNE HOOD DO ([id number]) on 10/30/2019 5:35:37 PM Electronically Signed By: MARY ANNE HOOD DO 10/30/19 1735 PATIENT NAME: AMANDA NESBITT ANN Electrocardiogram DATE OF : 39 PHYSICIAN: MARY ANNE HOOD DO REPORT #: [id number] REPORT IS CONFIDENTIAL AND NOT TO BE RELEASED WITHOUT AUTHORIZATION
[2019-10-31] MEDS ORDERED: NORCO 5-325 TA1 EACH PO (21:46)
== END 2019-10-30 03:47 | disposition home or self-care (01) ==
LOC: ED 20:58
DX: I10 Essential (primary) hypertension (principal); R47.01 Aphasia; R51 Headache; E78.00 Pure hypercholesterolemia, unspecified; Z88.2 Allergy status to sulfonamides; Z88.8 Allergy status to other drugs, medicaments and biological substances; Z79.899 Other long term (current) drug therapy
CPT/HCPCS: 70450; 70496; 70498; 71045; 80053; 85025; 85610; 85730; 93005; 93010; 96366; 99285-25; J1170; J1200; J1885; J2765; J7060; Q9967

== ENCOUNTER 2019-10-31 19:27 | Emergency (ER) | payer MEDICARE, BC ==
[~2019-10-31] VITALS: Ht 167.6 cm; Wt 88.5 kg
--- OUTSIDE RECORDS SUMMARY | 2019-10-31 19:30 | XMS ---
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 [place] has no Care Guidelines for this patient. [facility] [facility] MO.) [facility] NOTE: Visits indicate total known visits. ED/[facility] VISIT TRACKING (12 MO.) 10/31/2019 19:28 [facility] [place] TYPE: Emergency COMPLAINT: - HEADACHE 10/29/2019 20:59 [facility] TYPE: Emergency COMPLAINT: - HIGH BLOOD PRESSURE,HEADACHE INPATIENT VISIT TRACKING (12 MO.) 01/25/2019 08:27 [facility] TYPE: Intensive Care COMPLAINT: - RIGHT COMMON FEMORAL ARTERY STENOSIS [email or web address]
[2019-10-31] MEDS ORDERED: NORCO 5-325 TA1 EACH PO (21:46)
== END 2019-10-31 22:01 | disposition home or self-care (01) ==
LOC: ED 19:27
DX: R51 Headache (principal); I10 Essential (primary) hypertension; Z88.2 Allergy status to sulfonamides; Z88.8 Allergy status to other drugs, medicaments and biological substances; Z79.899 Other long term (current) drug therapy; Z79.82 Long term (current) use of aspirin
CPT/HCPCS: 96374; 96375; 99283-25; J1200; J1885; J2765

== ENCOUNTER 2019-11-01 05:50 | Emergency (ER) | payer MEDICARE, BC ==
[~2019-11-01] VITALS: Ht 167.6 cm; Wt 88.5 kg
--- OUTSIDE RECORDS SUMMARY | ~2019-11-01 | XMS | Encounter Summary ---
Demographics + + + | Address | [address] [place] [address] | | | [place] [address] | + + + | Home Phone | | + + + | Preferred Language | Unknown | + + + | Marital Status | | + + + | Zoroastrian Affiliation | Unknown | + + + | Race | White | + + + | Ethnic Group | Not or | + + + Author + + + | Author | [facility] | | | and [place] | + + + | Organization | [facility] | | | and [place] | + + + | Address | Unknown | + + + | Phone | Unavailable | + + + Support + + +---------+ + | Name | Relationship | Address | Phone | + + +---------+ + | Mack Nesbitt | ECON | Unknown | | + + +---------+ + | Rosmery Kristoferinocencia | ECON | Unknown | | + + +---------+ + Care Team Providers + +------+ + | Care Groover And Turner Name | Role | Phone | + +------+ + PCP | Unavailable | + +------+ + Encounter Details +--------+ + + + + | Date | Type | Department | Care Team | Description | +--------+ + + + + | 03/07/ | Hospital | [facility] | Jerome Haynes MD | Atheroscler-Limb&Cla | | 2008 | Encounter | [facility] | | diana ([facility]) | | | | CLINICAL DECISION | | | | | | [address] | | | | | | [place] | | | | | | [address] | | | | | | [phone] | | | +--------+ + + + [...] Performed At | + + + | [facility] | | | [facility] [address] | | | , | | | [id number]/CARDIOLOGY Patient Name: AMANDA NESBITT Date of | | | : 1935 Medical Record: [id number] Account: | | | [id number] [facility] [id number]/ Exam Date/Time: | | | 03/07/2009 02:30 P Ordering Provider: JEROME HAYNES Order | | | Detail: [id number] / / HCL Exam Description: CCL ANGIOGRAPHY | | | EXTREMITY ELDY | | | | | | PROCEDURES [...] the right groin with 1% lidocaine. A 4-Croatian vascular | | | sheath was inserted in the right femoral artery using modified | | | Seldinger technique. Subsequently a 4-Croatian Omni Flush catheter was | | | [...] | | | better assessment of the tbr-ky-zigsxc right SFA stenosis. | | | Subsequently an angle-tipped 4-Croatian catheter was advanced over a | | [...] noted in the | | | right kjj-lk-zodnkr superficial femoral artery. That lesion could | [...] P | | | 09:23 P A /[id number]/[id number]/ cc: ASHLEY MCDANIEL, | | | MD JEROME HAYNES MD | | + + + + + | Procedure Note | + + | Graeme Montilla - 11/09/2018 3:20 AM PDT | | [facility] | | [facility] [address] | | , | | | | [id number]/CARDIOLOGY | | | | Patient Name: AMANDA NESBITT | | Date of : 1935 | | Medical Record: [id number] | | Account: [id number] | | OPS/CDU [id number]/ | | | | | | Exam [...] the right groin with 1% lidocaine. A 4-Croatian vascular | | sheath was inserted in the right femoral artery using modified Seldinger | | technique. Subsequently a 4-Croatian Omni Flush catheter was advanced over | [...] to have a better assessment of the cie-wy-wlklfw right SFA | | stenosis. Subsequently an angle-tipped 4-Croatian catheter was advanced | | over a [...] significant stenosis was noted in the right rdt-bq-isoqqh | | superficial femoral artery. 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
--- OUTSIDE RECORDS SUMMARY | ~2019-11-01 | XMS | Encounter Summary ---
Demographics + + + | Address | [address] [place] [address] | | | [place] [address] | + + + | Home Phone | | + + + | Preferred Language | Unknown | + + + | Marital Status | | + + + | Muslim Affiliation | Unknown | + + + | Race | White | + + + | Ethnic Group | Not or | + + + Author + + + | Author | [facility] | | | and [place] | + + + | Organization | [facility] | | | [...] Team Providers + +------+ + | Care Team Lead Name | Role | Phone | + +------+ + | Miquel Greenfield DO | PCP | | + +------+ + Encounter Details +--------+ + + + + | Date | Type | Department | Care Team | Description | +--------+ + + + + | 07/12/ | Orders Only | [facility] | Catherine Lee, | | | 2017 | | CARDIOLOGY FELICITAS | MD [address] | | | | | [address] | [place], [place] | | | | | [place], [place] | [address] | | | | | [address] | | | | | | [phone] | | | +--------+ + + + [...]
--- OUTSIDE RECORDS SUMMARY | ~2019-11-01 | XMS | Encounter Summary ---
Demographics + + + | Address | [address] [place] [address] | | | [place] [address] | + + + | Home Phone | | + + + | Preferred Language | Unknown | + + + | Marital Status | | + + + | Moravian Affiliation | Unknown | + + + | Race | White | + + + | Ethnic Group | Not or | + + + Author + + + | Author | [facility] | | | and [place] | + + + | Organization | [facility] | | | [...] Team Providers + +------+ + | Care Physician Credentialing Specialist Name | Role | Phone | + +------+ + | Miquel Greenfield DO | PCP | | + +------+ + Encounter Details +--------+ + + + + | Date | Type | Department | Care Team | Description | +--------+ + + + + | 04/17/ | Orders Only | [facility] | Catherine Lee, | | | 2017 | | CARDIOLOGY FELICITAS | MD [address] | | | | | [address] | [place], [place] | | | | | [place], [place] | [address] | | | | | [address] | | | | | | [phone] | | | +--------+ + + + [...] | + +--------+ + + + | ECG 12 LEAD | Routin | 04/17/2016 | | Results for this | | | e | 9:50 AM | | procedure are in the | | | | PST | | results section. | + +--------+ + + + documented in this encounter Results ECG 12 lead (04/17/2016 9:50 AM PST) + + + + + + | Component | Value | Ref Range | Performed | Pathologist | | | | | At | Signature | + + + + + + | DIAGNOSIS: | Normal sinus | | EXTERNAL | | | | rhythmNormal ECGNo | | LAB | | | | previous ECGs | | | | | | availablePlease refer to | | | | | | Providers office visit | | | | | | note for Providers | | | | | | Interpretation.Confirmed | | | | | | by [facility] Read Only, | | | | | | [facility] ([id number]), | | | | | | image editor Cyril Parrish | | | | | | ([phone]) on 05/24/2016 | | | | | | 10:24:34 AM | | | | + + + + + + + + | Specimen | + + | | + + + + + | Narrative | Performed At | + + + | Historically converted procedure from [facility] Epic environment | EXTERNAL LAB | + + + + +---------+ + + | Performing | Address | City/State/Zipcode | Phone Number | | Organization | | | | + +---------+ + + | EXTERNAL LAB | | | | + +---------+ + + documented in this encounter Visit Diagnoses Not on filedocumented in this encounter"
--- OUTSIDE RECORDS SUMMARY | ~2019-11-01 | XMS | Encounter Summary ---
Demographics + + + | Address | [id number] [place] [address] | | | [place] [address] | + + + | Home Phone | | + + + | Preferred Language | Unknown | + + + | Marital Status | | + + + | Episcopal Affiliation | Unknown | + + + | Race | White | + + + | Ethnic Group | Not or | + + + Author + + + | Author | [facility] | | | and [place] | + + + | Organization | [facility] | | [...] Team Providers + +------+ + | Care Lighting Fixture Installer Name | Role | Phone | + +------+ + PCP | Unavailable | + +------+ + Encounter Details +--------+ + + + + | Date | Type | Department | Care Team | Description | +--------+ + + + + | 05/13/ | Hospital | [facility] | Conversion | Atherosclerosis of | | 2012 - | Encounter | [facility] | Transaction, | samish arteries of | | | | CLINICAL DECISION | Provider Unknown | the extremities with | | 05/14/ | | [address] | [phone] | intermittent | | 2012 | | [place], [place] | | claudication (HCC) | | | | [address] | Tila Mohan, | | | | | [phone] | MD Delano [address] | | | [address] | | | | | | [place] [address] | | | | | | [phone] | | | | | | | [...] + + documented as of this encounter Discharge Summaries Jeffy Buckner MD - 05/14/2012 8:41 AM PST Discharge Summaries by Rush Buckner MD at 05/14/12 0841 Author: Rush Buckner MD Service: (none) Author Type: Physician Filed: 05/14/12 0848 Date of Service: 05/14/12 0841 Status: Signed Design Assembler: Rush Buckner MD (Physician) [facility] Service: Interventional Radiology Discharge Summary Date of Admission: 05/13/2012 Date of Discharge: 05/14/12 Discharge Provider: RUSH BUCKNER MD Treatment Team: Admitting Provider: Delano Vargas MD Discharge Diagnoses: Active Problems: * No active hospital problems. * Resolved Problems: * No resolved hospital problems. * Procedures: * No surgery found * Significant Diagnostic Studies: Angiography: Bilateral iliac and SFA disease. BRIEF HISTORY OF PRESENTATION: Marry Nesbitt is a 76 y.o. female who presented with bilateral claudication and Bi lateral iliac and SFA disease, CKD stage 3. She underwent agniogram and intervention for her left EIA and left SFA disease. HOSPITAL COURSE: Uneventful. Past Medical History Diagnosis Date PVD (peripheral [...] tablet Take 81 mg by mouth daily. Jhsukkh-Doeeqkbzq-Kvgu 1000-400-15 MG TABS Take by mouth 3 (three) times daily. Cholecalciferol (D3 ADULT PO) Take by mouth. cilostazol (PLETAL) 100 MG tablet Take 100 mg by mouth 2 (two) times daily. clopidogrel (PLAVIX) 75 MG tablet Take 75 [...] tablet Take 80 mg by mouth daily. DISCHARGE EXAM Vital Signs: BP 110/57 | Pulse 68 | Temp(Src) 97.9 F (36.6 C) (Oral) | Resp 16 | Ht 1.676 m (5' 6") | Wt 88.451 kg (195 lb) | BMI 31.47 kg/m2 | SpO2 94% Temp: [97.2 F (36.2 C)-98.7 F (37.1 C)] 97.9 F (36.6 C) (05/14 824) BP: (96-144)/(51-74) 110/57 mmHg (05/14 824) Heart Rate: [59-73] 68 (05/14 824) Resp: [16-18] 16 (05/14 824) SpO2: [91 %-97 %] 94 % (05/14 824) Height: [167.6 cm (5' 6")] 167.6 cm (5' 6") (05/13 849) Weight: [88.451 kg (195 lb)] 88.451 kg (195 lb) (05/13 849) BMI (Calculated): [31.5] 31.5 (05/13 849) Physical Exam Vitals reviewed. Constitutional: She is oriented to person, place, and time. She appears well-developed and well-nourished. HENT: Head: Normocephalic and atraumatic. Eyes: Conjunctivae and EOM are normal. Pupils are equal, round, and reactive to light. Neck: Normal range of motion. Neck supple. Cardiovascular: Normal rate, regular rhythm and normal heart sounds. Pulmonary/Chest: Effort normal and breath sounds normal. Abdominal: Soft. Bowel sounds are normal. Musculoskeletal: Normal range of motion. Neurological: She is alert and oriented to person, place, and time. Skin: Skin is warm and dry. Psychiatric: She has a normal mood and affect. Her behavior is normal. Judgment and thought content normal. Right groin supple. No tenderness. Right HEALTH PSYCHOLOGIST and left poplitela pulse well felt. DATA BMP: Lab Results Component Value Date NA 139 05/13/2012 K 4.4 05/13/2012 CL 103 05/13/2012 CO2 28 05/13/2012 ANIONGAP 13 05/13/2012 GLUF 119* 05/13/2012 BUN 16 05/13/2012 CREATININE 1.01* 05/14/2012 BCR 15 05/13/2012 CA 9.6 05/13/2012 EGFR 53* 05/13/2012 PLAN 1. Resume oral Plavix. 2. RTC after 2 weeks. Will decide the extent of symptom relief on the left LE and plan for right SFA intervention. Disposition: Home Condition: Stable Code Status: Full Code No discharge procedures on file. Follow up: Delano Vargas MD [address] [address] Make an appointment Rush Buckner MD [address] [facility] [phone] in 2 weeks Current Discharge Medication List CONTINUE these medications which have NOT CHANGED Details amLODIPine (NORVASC) 5 MG tablet Take 5 mg by mouth 2 (two) times daily. aspirin 81 MG tablet Take 81 mg by mouth daily. Lmvjcvx-Jmrbwhrgd-Qtdi 1000-400-15 MG TABS Take by mouth 3 (three) times daily. Cholecalciferol (D3 ADULT PO) Take by mouth. cilostazol (PLETAL) 100 MG tablet Take 100 mg by mouth 2 (two) times daily. clopidogrel (PLAVIX) 75 MG tablet Take 75 mg by mouth daily. Flaxseed, Linseed, (FLAX SEEDS PO) Take by mouth daily. metoprolol (LOPRESSOR) 100 MG tablet Take 100 mg by mouth daily. Multiple Vitamins-Minerals (MULTIVITAMIN WITH MINERALS) tablet Take 1 tablet by mouth daily . pravastatin (PRAVACHOL) 80 MG tablet Take 80 mg by mouth daily. telmisartan (MICARDIS) 80 MG tablet Take 80 mg by mouth daily. Discharge took 25 minutes, to include final examination, discussion of admission, and prepa ration of prescriptions, instructions for on-going care, follow-up and documentation of disc harge summary. RUSH BUCKNER MD 05/14/2012 documented in th is encounter Medications at Time of Discharge + [...] Progress Notes Conversion Transaction, Provider Unknown - 05/14/2012 9:25 AM PSTFormatting of this note m ight be different from the original. Progress Notes by Dee Valencia RN at 05/14/12924 Author: Dee Valencia RN Service: (none) Author Type: Registered Nurse Filed: 05/14/12924 Date of Service: 05/14/12924 Status: Signed Design Assembler: Dee Valencia RN (Registered Nurse) Pt to vehicle via w/c per [employer]IDENTIAL TREATMENT STAFF with family member here to provide transportation home. Pt st able and voicing no complaints. Voices understanding of discharge instructions. Personal bel ongings with pt. onver donny Transaction, Provider Unknown - 05/14/2012 8:52 AM PST Progress Notes by Dee Valencia RN at 05/14/12851 Author: Dee Valencia RN Service: (none) Author Type: Registered Nurse Filed: 05/14/1253 Date of Service: 05/14/12851 Status: Signed Design Assembler: Dee Valencia RN (Registered Nurse) Assumed care of pt at this time from Mónica Lyman RN. Pt with discharge order per Dr Gaudencio fung onver donny Transaction, Provider Unknown - 05/14/2012 8:37 AM PST Progress Notes by Dee Valencia RN at 05/14/12836 Author: Dee Valencia RN Service: (none) Author Type: Registered Nurse Filed: 05/14/12836 Date of Service: 05/14/12836 Status: Signed Design Assembler: Dee Valencia RN (Registered Nurse) Dr Sita dykes. docume nted in this encounter H&P Notes Bart Lewis NP - 05/13/2012 9:05 AM PST H&P by LIEN Cardenas at 05/13/12 09 Author: LIEN Cardenas Service: Interventional Radiology Author Type: Advanced R egistered Nurse Practitioner Filed: 05/13/12 1036 Date of Service: 05/13/12904 Status: Signed Design Assembler: LIEN Cardenas (Advanced Registered Nurse Practitioner) [facility] Service: Interventional Radiology Pre-Operative History & Physical DIAGNOSIS: PVD, Bilateral LE claudication symptoms INDICATION: Same PROCEDURE: Abdominal aortogram with bilateral LE runoff and possible endovascular interven tion History Obtained From: patient, daughter, chart review HISTORY OF PRESENT ILLNESS The patient is a 76 y.o. female with significant past medical history of HTN, hyperlipidemi a, and PVD who presents with bilateral LE claudication symptoms. Onset approximately 3 year s, patient c/o claudication symptoms to her legs when she walks. She states the symptoms be gin after approximately 1/2 block and she must stop and rest. She denies any rest pain or w ounds/ulcers. The patient underwent arterial U/S of both LE on 04/28/12 that revealed bilate ral SFA stenosis. She has been evaluated by Dr. Faria, vascular surgery, and was r eferred here for angiography and possible endovascular intervention. REVIEW OF SYSTEMS Review of Systems Constitutional: Negative for fever and chills. HENT: Negative for sore throat, trouble swallowing, neck pain, neck stiffness and voice shelby nge. Respiratory: Negative for cough, chest tightness, shortness of breath and wheezing. Cardiovascular: Negative for chest pain, palpitations and leg swelling. Gastrointestinal: Negative for nausea, vomiting, abdominal pain, diarrhea, blood in stool a nd abdominal distention. Genitourinary: Negative for dysuria, hematuria and difficulty urinating. Musculoskeletal: Positive for back pain and gait problem. Occasional chronic back pain. C/O bilateral LE claudication symptoms Skin: Negative for color change, pallor, rash and wound. Neurological: Negative for dizziness, seizures, weakness, numbness and headaches. Past Medical History Diagnosis Date PVD (peripheral vascular disease) Hyperlipidemia HTN (hypertension) Arthritis UTI (lower urinary tract infection) Past Surgical History Procedure Date Hysterectomy Bladder surgery Rectal surgery Allergies Allergen Reactions Sulfa Drugs Cross Reactors Swelling Zestril (Lisinopril) Swelling MEDICATIONS: amLODIPine (NORVASC) 5 MG tablet aspirin 81 MG tablet Nemcpbm-Kfatelodg-Wdas 1000-400-15 MG TABS Cholecalciferol (D3 ADULT PO) cilostazol (PLETAL) 100 MG tablet clopidogrel (PLAVIX) 75 MG tablet Flaxseed, Linseed, (FLAX SEEDS PO) metoprolol (LOPRESSOR) 100 MG tablet Multiple Vitamins-Minerals (MULTIVITAMIN WITH MINERALS) tablet pravastatin (PRAVACHOL) 80 MG tablet telmisartan (MICARDIS) 80 MG tablet Family History Problem Relation Age of Onset Diabetes Brother 2 brothers History Smoking status Former Smoker -- 1.5 packs/day for 30 years Quit date: 05/13/1982 Smokeless tobacco Not on file Comment: Quit 30 years ago History Alcohol Use Yes 2 drinks 4 times per week History Drug Use No PHYSICAL EXAM Vital Signs: BP 144/67 | Pulse 73 | Temp(Src) 97.2 F (36.2 C) (Skin) | Resp 18 | Ht 1.676 m (5' 6") | Wt 88.451 kg (195 lb) | BMI 31.47 kg/m2 | SpO2 97% Physical Exam Vitals reviewed. Constitutional: She is oriented to person, place, and time. No distress. HENT: Head: Normocephalic and atraumatic. Mouth/Throat: Oropharynx is clear and moist. No oropharyngeal exudate. Eyes: EOM are normal. Pupils are equal, round, and reactive to light. Neck: Normal range of motion. Neck supple. No JVD present. No tracheal deviation present. Cardiovascular: Normal rate, regular rhythm and normal heart sounds. No murmur heard. Pulses: Radial pulses are 2+ on the right side, and 2+ on the left side. Femoral pulses are 2+ on the right side, and 2+ on the left side. Dorsalis pedis pulses are 1+ on the right side, and 0 on the left side. Posterior tibial pulses are 0 on the right side, and 0 on the left side. Right PT, Left DP & PT via doppler Pulmonary/Chest: Effort normal and breath sounds normal. No respiratory distress. She has n o wheezes. She has no rales. She exhibits no tenderness. Abdominal: Soft. She exhibits no distension. There is no tenderness. Musculoskeletal: Normal range of motion. She exhibits no edema and no tenderness. Neurological: She is alert and oriented to person, place, and time. Skin: Skin is warm and dry. She is not diaphoretic. No pallor. Psychiatric: She has a normal mood and affect. Thought content normal. DATA CBC: Lab Results Component Value Date WBC 6.7 05/13/2012 RBC 4.39 05/13/2012 HGB 13.9 05/13/2012 HCT 40.9 05/13/2012 MCV 93.2 05/13/2012 MCH 31.6 05/13/2012 MCHC 33.9 05/13/2012 RDW 41.6 05/13/2012 PLT 258 05/13/2012 MPV 7.7 05/13/2012 BMP: Lab Results Component Value Date NA 139 05/13/2012 K 4.4 05/13/2012 CL 103 05/13/2012 CO2 28 05/13/2012 ANIONGAP 13 05/13/2012 GLUF 119* 05/13/2012 BUN 16 05/13/2012 CREATININE 1.08* 05/13/2012 BCR 15 05/13/2012 CA 9.6 05/13/2012 EGFR 53* 05/13/2012 PT/INR: Lab Results Component Value Date INR 1.0 05/13/2012 PTT: Lab Results Component Value Date APTT 29 05/13/2012 [APTT PROBLEM LIST Patient Active Problem List Diagnoses Bilateral claudication of lower limb ASSESSMENT & PLAN 1. Patient is a 76 y.o. female with above specified procedure planned. 2. Procedure options, risks, benefits and alternatives reviewed with patient and daughter who express(es) understanding. Any and all questions were answered to their satisfaction. 3. The patient was started on the contrast nephropathy protocol due to her decreased GFR. Primary Care Physician: MD BART LOERA ARNP 05/13/2012 documented in th is encounter Plan of Treatment Not on filedocumented as of this encounter Procedures + +--------+ + + + | Procedure Name | Priori | Date/Time | Associated Diagnosis | Comments | | | ty | | | | + +--------+ + + + | IR AORTOGRAM | Routin | 05/13/2012 | | Results for this | | ABDOMINAL W RUNOFF | e | 12:24 PM | | procedure are in the | | | | PST | | results section. | + +--------+ + + + | IR ANGIOPLASTY FEM | Routin | 05/13/2012 | | Results for this | | POP | e | 12:24 PM | | procedure are in the | | | | PST | | results section. | + +--------+ + + + | IR STENT ILIAC | Routin | 05/13/2012 | | Results for this | | | e | 12:24 PM | | procedure are in the | | | | PST | | results section. | + +--------+ + + + | IR ANGIO UPPER/LOWER | Routin | 05/13/2012 | | Results for this | | EXTREMITY | e | 12:24 PM | | procedure are in the | | | | PST | | results section. | + +--------+ + + + | US GUIDED VASCULAR | Routin | 05/13/2012 | | Results for this | | ACCESS | e | 12:24 PM | | procedure are in the | | | | PST | | results section. | + +--------+ + + + documented in this encounter Results US Guided Vascular Access (05/13/2012 12:24 PM PST) + + | Specimen | + + | | + + + + + | Narrative | Performed At | + + + | [facility] 05/13/2012 | | | 10:20 AM HISTORY: 76 years. Female. Bilateral lower extremity | | | claudication with claudication distal lese than half a block. | | | MEDICATIONS: Isovue 250 135 cc, heparin 6000 units intravenous, | | | Versed 2 milligram intravenous, Fentanyl 100 microgram intravenous. | | | Radiation dose 694 [address]ina Sánchez. Fluoroscopy time 12.8 minutes. | | | Intra procedure sedation time 65 minutes. Appropriate physiologic | | | monitoring, maintenance of adequate conscious sedation and | | | independent chcf supervision performed throughout the | | | [...] was placed supine on the x-ray table. Right | | | groin prepped in the usual sterile fashion. Skin and subcutaneous | | | tissues infiltrated with 1% lidocaine. Right common femoral artery | | | was localized under real-time sonographic guidance and accessed | | | using micropuncture needle and exchanged for 4-Malawian micropuncture | | | sheath over 0.018 wire. 4-Malawian micropuncture sheath was exchanged | | | for 4-Malawian by 11-cm sheath over 0.035, 3-mm J-wire. Subsequently, | | | 4-Malawian Omni flush catheter placed with its tip at the L1 vertebral | | | level and abdominal pelvic arteriogram obtained in frontal | | | projection. Subsequently, catheter was repositioned the L3 vertebral | | | level and pelvic arteriogram obtained in left anterior oblique and | | | right anterior oblique projections. Omni flush catheter was advanced | | | over 0.035 angled Glidewire with its tip in the left common femoral | | | artery. Subsequently, selective Left lower extremity arteriogram | | | obtained from left common femoral artery to left foot. Given the | | | hemodynamically significant stenosis in proximal and middle and | | | distal thirds of the right superficial femoral artery and preocclusive | | | stenoses of the ostium of the left the superficial femoral artery, we | | | decided to perform endovascular intervention. 4-Malawian Omni flush | | | catheter was exchanged for 0.035, Amplatz wire with its tip in | | | proximal left superficial femoral artery. Subsequently, catheter was | | | removed and 4-Malawian by 11 cm sheath was exchanged for 5-Malawian by | | | 45-cm destination sheath with its tip in proximal left common | | | femoral artery. Subsequently, using combination of 4-Malawian | | | vertebral catheter and 0.035, Amplatz wire both were advanced to | | | distal left popliteal artery. Subsequently, Amplatz wire was | | | exchanged for 0.014, mailman wire. Vertebral catheter was | | | exchanged for 5 mm x 10 cm balloon catheter and balloon angioplasty of | | | the entire length of the left supervision femoral artery performed in | | | a distal to proximal fashion. Post angioplasty left thigh | | | arteriogram obtained. Then, pullback pressures obtained through | | | the left external iliac artery and the proximal left common iliac | | | artery. There was 25-mm gradient across the proximal left external | | | iliac artery. Subsequently, 0.014, mailman wire was exchanged for | | | 0.035, Amplatz wire. 5-Malawian destination sheath was exchanged for | | | 6-Malawian by 45-cm destination sheath. Subsequently, 8 mm x 6 cm | | | self-expanding stent was placed across the significant focal stenosis | | | in proximal and mid left external iliac artery and a post angioplasty | | | balloon dilatation performed using 7 mm x 4 cm balloon catheter. | | | Post angioplasty left iliac arteriogram obtained by injecting | | | through the side arm of the 6-Malawian destination sheath. | | | Subsequently, pullback pressures obtained across the proximal right | | | common iliac artery. There was no significant gradient. | | | Subsequently, all catheters and wires were removed and right groin | | | hemostasis obtained using Mynx closure device. Patient tolerated the | | | procedure with no procedural complications. FINDINGS: 1. | | | Real-time image documenting the entry of micropuncture needle into | | | the widely patent right common femoral artery was obtained and copy of | | | the image placed in patient's medical records. 2. Abdominal | | | aortogram: Single left renal artery and single right renal artery are | | | widely patent. Infrarenal aorta is widely patent. 50%, eccentric, | | | calcific stenosis of the proximal right common iliac artery. Left | | | common iliac artery widely patent. Ostial occlusion the left | | | internal iliac artery. Right internal iliac artery is widely patent. | | | Right external iliac artery is widely patent. Focal, 70% stenosis | | | of the proximal and mid left external iliac artery. 3. Left the | | | lower extremity arteriogram: Preocclusive calcific stenosis of the | | | distal left common femoral artery extending to left the superficial | | | femoral artery ostium. Focal, pre-it was a calcific stenosis in | | | proximal, mid and distal left the superficial femoral artery. Left | | | the popliteal artery is widely patent. Three-vessel continuous | | | runoff to left foot. 4. Right lower extremity arteriogram: Right | | | common femoral artery is widely patent. Right profunda femoris | | | artery and its branches are unremarkable. Right proximal and mid | | | supervision femoral artery is widely patent. Diffuse calcific, more | | | than 70% stenosis of the distal third. Right popliteal artery, 3 | | | vessel runoff widely patent to right foot. 5. Successful | | | angioplasty the multifocal preocclusive stenosis in left distal | | | portion femoral artery using 5-mm balloon angioplasty. Successful | | | stenting of the focal, tandem, more than 70% stenosis with 36 -mm | | | gradient in left extra iliac artery using 8-mm by 6-cm | | | self-expanding stent with no residual stenosis or gradient. 6. | | | Aortic pressure: 153/67 mm Hg, left distal extra iliac artery | | | pressure: 121/73, proximal left common iliac artery pressure: 157/78, | | | right external iliac artery pressure: 150/74 millimeters Hg. | | | IMPRESSION: 1. Successful abdominal aortogram and bilateral lower | | | extremity arteriogram. 2. Successful angioplasty of the significant | | | multifocal preocclusive stenosis in left distal portion femoral | | | artery and stenting of the femur neck is significant stenosis in left | | | external iliac artery without incidence. 3. Patient to return to | | | clinic after two weeks. If patient has persistent left lower | | | extremity claudication may consider surgical left distal common | | | femoral artery endarterectomy of the calcific plaque. 4. Will plan | | | for right superficial femoral artery endovascular intervention during | | | two weeks for follow up. | | + + + + + | Procedure Note | + + | Roldan, Rad Conversion - 11/06/2018 9:32 PM PDT [facility] | | [facility]05/13/2012 10:20 AM HISTORY:76 years. Female. Bilateral lower extremity | | claudication with claudication distal lese than half a block. MEDICATIONS: Isovue 250 | | 135 cc, heparin 6000 units intravenous, Versed 2 milligram intravenous, Fentanyl 100 | | microgram intravenous. Radiation dose 694 Clementina Sánchez. Fluoroscopy time 12.8 minutes. | | Intra procedure sedation time 65 minutes. Appropriate physiologic monitoring, | | maintenance of adequate conscious sedation and independent chcf supervision | | performed throughout the procedure. No adverse drug reactions. PROCEDURE:Informed | | written consent obtained from the patient after explaining the procedure, risks and | | alternatives. Patient understood the discussion and expressed her wish to proceed. The | | appropriate side and site was labeled and initialed as an independent process antecedent | | to the imaging and intervention, as per protocol at this institution.? Patient was | | placed supine on the x-ray table. Right groin prepped in the usual sterile fashion. | | Skin and subcutaneous tissues infiltrated with 1% lidocaine. Right common femoral | | artery was localized under real-time sonographic guidance and accessed using | | micropuncture needle and exchanged for 4-Malawian micropuncture sheath over 0.018 wire. | | 4-Malawian micropuncture sheath was exchanged for 4-Malawian by 11-cm sheath over 0.035, | | 3-mm J-wire. Subsequently, 4-Malawian Omni flush catheter placed with its tip at the L1 | | vertebral level and abdominal pelvic arteriogram obtained in frontal projection. | | Subsequently, catheter was repositioned the L3 vertebral level and pelvic arteriogram | | obtained in left anterior oblique and right anterior oblique projections. Omni flush | | catheter was advanced over 0.035 angled Glidewire with its tip in the left common | | femoral artery. Subsequently, selective Left lower extremity arteriogram obtained from | | left common femoral artery to left foot. Given the hemodynamically significant stenosis | | in proximal and middle and distal thirds of the right superficial femoral artery and | | preocclusive stenoses of the ostium of the left the superficial femoral artery, we | | decided to perform endovascular intervention. 4-Malawian Omni flush catheter was exchanged | | for 0.035, Amplatz wire with its tip in proximal left superficial femoral artery. | | Subsequently, catheter was removed and 4-Malawian by 11 cm sheath was exchanged for | | 5-Malawian by 45-cm destination sheath with its tip in proximal left common femoral | | artery. Subsequently, using combination of 4-Malawian vertebral catheter and 0.035, | | Amplatz wire both were advanced to distal left popliteal artery. Subsequently, Amplatz | | wire was exchanged for 0.014, mailman wire. Vertebral catheter was exchanged for 5 mm x | | 10 cm balloon catheter and balloon angioplasty of the entire length of the left | | supervision femoral artery performed in a distal to proximal fashion. Post angioplasty | | left thigh arteriogram obtained. Then, pullback pressures obtained through the left | | external iliac artery and the proximal left common iliac artery. There was 25-mm | | gradient across the proximal left external iliac artery. Subsequently, 0.014, mailman | | wire was exchanged for 0.035, Amplatz wire. 5-Malawian destination sheath was exchanged | | for 6-Malawian by 45-cm destination sheath. Subsequently, 8 mm x 6 cm self-expanding | | stent was placed across the significant focal stenosis in proximal and mid left external | | iliac artery and a post angioplasty balloon dilatation performed using 7 mm x 4 cm | | balloon catheter. Post angioplasty left iliac arteriogram obtained by injecting through | | the side arm of the 6-Malawian destination sheath. Subsequently, pullback pressures | | obtained across the proximal right common iliac artery. There was no significant | | gradient. Subsequently, all catheters and wires were removed and right groin hemostasis | | obtained using Mynx closure device. Patient tolerated the procedure with no procedural | | complications. FINDINGS:1. Real-time image documenting the entry of micropuncture | | needle into the widely patent right common femoral artery was obtained and copy of the | | image placed in patient's medical records.2. Abdominal aortogram: Single left renal | | artery and single right renal artery are widely patent. Infrarenal aorta is widely | | patent. 50%, eccentric, calcific stenosis of the proximal right common iliac artery. | | Left common iliac artery widely patent. Ostial occlusion the left internal iliac | | artery. Right internal iliac artery is widely patent. Right external iliac artery is | | widely patent. Focal, 70% stenosis of the proximal and mid left external iliac artery.3. | | Left the lower extremity arteriogram: Preocclusive calcific stenosis of the distal | | left common femoral artery extending to left the superficial femoral artery ostium. | | Focal, pre-it was a calcific stenosis in proximal, mid and distal left the superficial | | femoral artery. Left the popliteal artery is widely patent. Three-vessel continuous | | runoff to left foot.4. Right lower extremity arteriogram: Right common femoral artery | | is widely patent. Right profunda femoris artery and its branches are unremarkable. | | Right proximal and mid supervision femoral artery is widely patent. Diffuse calcific, | | more than 70% stenosis of the distal third. Right popliteal artery, 3 vessel runoff | | widely patent to right foot.5. Successful angioplasty the multifocal preocclusive | | stenosis in left distal portion femoral artery using 5-mm balloon angioplasty. | | Successful stenting of the focal, tandem, more than 70% stenosis with 36 -mm gradient in | | left extra iliac artery using 8-mm by 6-cm self-expanding stent with no residual | | stenosis or gradient. 6. Aortic pressure: 153/67 mm Hg, left distal extra iliac artery | | pressure: 121/73, proximal left common iliac artery pressure: 157/78, right external | | iliac artery pressure: 150/74 millimeters Hg. IMPRESSION:1. Successful abdominal | | aortogram and bilateral lower extremity arteriogram.2. Successful angioplasty of the | | significant multifocal preocclusive stenosis in left distal portion femoral artery and | | stenting of the femur neck is significant stenosis in left external iliac artery without | | incidence.3. Patient to return to clinic after two weeks. If patient has persistent | | left lower extremity claudication may consider surgical left distal common femoral | | artery endarterectomy of the calcific plaque.4. Will plan for right superficial femoral | | artery endovascular intervention during two weeks for follow up. | + + IR Stent Iliac (05/13/2012 12:24 PM PST) + + | Specimen | + + | | + + + + + | Narrative | Performed At | + + + | [facility] 05/13/2012 | | | 10:20 AM HISTORY: 76 years. Female. Bilateral lower extremity | | | claudication with claudication distal lese than half a block. | | | MEDICATIONS: Isovue 250 135 cc, heparin 6000 units intravenous, | | | Versed 2 milligram intravenous, Fentanyl 100 microgram intravenous. | | | Radiation dose 694 Clementina Sánchez. Fluoroscopy time 12.8 minutes. | | | Intra procedure sedation time 65 minutes. Appropriate physiologic | | | monitoring, maintenance of adequate conscious sedation and | | | independent chcf supervision performed throughout the | | | [...] was placed supine on the x-ray table. Right | | | groin prepped in the usual sterile fashion. Skin and subcutaneous | | | tissues infiltrated with 1% lidocaine. Right common femoral artery | | | was localized under real-time sonographic guidance and accessed | | | using micropuncture needle and exchanged for 4-Malawian micropuncture | | | sheath over 0.018 wire. 4-Malawian micropuncture sheath was exchanged | | | for 4-Malawian by 11-cm sheath over 0.035, 3-mm J-wire. Subsequently, | | | 4-Malawian Omni flush catheter placed with its tip at the L1 vertebral | | | level and abdominal pelvic arteriogram obtained in frontal | | | projection. Subsequently, catheter was repositioned the L3 vertebral | | | level and pelvic arteriogram obtained in left anterior oblique and | | | right anterior oblique projections. Omni flush catheter was advanced | | | over 0.035 angled Glidewire with its tip in the left common femoral | | | artery. Subsequently, selective Left lower extremity arteriogram | | | obtained from left common femoral artery to left foot. Given the | | | hemodynamically significant stenosis in proximal and middle and | | | distal thirds of the right superficial femoral artery and preocclusive | | | stenoses of the ostium of the left the superficial femoral artery, we | | | decided to perform endovascular intervention. 4-Malawian Omni flush | | | catheter was exchanged for 0.035, Amplatz wire with its tip in | | | proximal left superficial femoral artery. Subsequently, catheter was | | | removed and 4-Malawian by 11 cm sheath was exchanged for 5-Malawian by | | | 45-cm destination sheath with its tip in proximal left common | | | femoral artery. Subsequently, using combination of 4-Malawian | | | vertebral catheter and 0.035, Amplatz wire both were advanced to | | | distal left popliteal artery. Subsequently, Amplatz wire was | | | exchanged for 0.014, mailman wire. Vertebral catheter was | | | exchanged for 5 mm x 10 cm balloon catheter and balloon angioplasty of | | | the entire length of the left supervision femoral artery performed in | | | a distal to proximal fashion. Post angioplasty left thigh | | | arteriogram obtained. Then, pullback pressures obtained through | | | the left external iliac artery and the proximal left common iliac | | | artery. There was 25-mm gradient across the proximal left external | | | iliac artery. Subsequently, 0.014, mailman wire was exchanged for | | | 0.035, Amplatz wire. 5-Malawian destination sheath was exchanged for | | | 6-Malawian by 45-cm destination sheath. Subsequently, 8 mm x 6 cm | | | self-expanding stent was placed across the significant focal stenosis | | | in proximal and mid left external iliac artery and a post angioplasty | | | balloon dilatation performed using 7 mm x 4 cm balloon catheter. | | | Post angioplasty left iliac arteriogram obtained by injecting | | | through the side arm of the 6-Malawian destination sheath. | | | Subsequently, pullback pressures obtained across the proximal right | | | common iliac artery. There was no significant gradient. | | | Subsequently, all catheters and wires were removed and right groin | | | hemostasis obtained using Mynx closure device. Patient tolerated the | | | procedure with no procedural complications. FINDINGS: 1. | | | Real-time image documenting the entry of micropuncture needle into | | | the widely patent right common femoral artery was obtained and copy of | | | the image placed in patient's medical records. 2. Abdominal | | | aortogram: Single left renal artery and single right renal artery are | | | widely patent. Infrarenal aorta is widely patent. 50%, eccentric, | | | calcific stenosis of the proximal right common iliac artery. Left | | | common iliac artery widely patent. Ostial occlusion the left | | | internal iliac artery. Right internal iliac artery is widely patent. | | | Right external iliac artery is widely patent. Focal, 70% stenosis | | | of the proximal and mid left external iliac artery. 3. Left the | | | lower extremity arteriogram: Preocclusive calcific stenosis of the | | | distal left common femoral artery extending to left the superficial | | | femoral artery ostium. Focal, pre-it was a calcific stenosis in | | | proximal, mid and distal left the superficial femoral artery. Left | | | the popliteal artery is widely patent. Three-vessel continuous | | | runoff to left foot. 4. Right lower extremity arteriogram: Right | | | common femoral artery is widely patent. Right profunda femoris | | | artery and its branches are unremarkable. Right proximal and mid | | | supervision femoral artery is widely patent. Diffuse calcific, more | | | than 70% stenosis of the distal third. Right popliteal artery, 3 | | | vessel runoff widely patent to right foot. 5. Successful | | | angioplasty the multifocal preocclusive stenosis in left distal | | | portion femoral artery using 5-mm balloon angioplasty. Successful | | | stenting of the focal, tandem, more than 70% stenosis with 36 -mm | | | gradient in left extra iliac artery using 8-mm by 6-cm | | | self-expanding stent with no residual stenosis or gradient. 6. | | | Aortic pressure: 153/67 mm Hg, left distal extra iliac artery | | | pressure: 121/73, proximal left common iliac artery pressure: 157/78, | | | right external iliac artery pressure: 150/74 millimeters Hg. | | | IMPRESSION: 1. Successful abdominal aortogram and bilateral lower | | | extremity arteriogram. 2. Successful angioplasty of the significant | | | multifocal preocclusive stenosis in left distal portion femoral | | | artery and stenting of the femur neck is significant stenosis in left | | | external iliac artery without incidence. 3. Patient to return to | | | clinic after two weeks. If patient has persistent left lower | | | extremity claudication may consider surgical left distal common | | | femoral artery endarterectomy of the calcific plaque. 4. Will plan | | | for right superficial femoral artery endovascular intervention during | | | two weeks for follow up. | | + + + + + | Procedure Note | + + | Rold[facility], Rad Conversion - 11/06/2018 9:32 PM PDT [facility] | | POPLITEAL05/13/2012 10:20 AM HISTORY:76 years. Female. Bilateral lower extremity | | claudication with claudication distal lese than half a block. MEDICATIONS: Isovue 250 | | 135 cc, heparin 6000 units intravenous, Versed 2 milligram intravenous, Fentanyl 100 | | microgram intravenous. Radiation dose 694 Clementina Sánchez. Fluoroscopy time 12.8 minutes. | | Intra procedure sedation time 65 minutes. Appropriate physiologic monitoring, | | maintenance of adequate conscious sedation and independent chcf supervision | | performed throughout the procedure. No adverse drug reactions. PROCEDURE:Informed | | written consent obtained from the patient after explaining the procedure, risks and | | alternatives. Patient understood the discussion and expressed her wish to proceed. The | | appropriate side and site was labeled and initialed as an independent process antecedent | | to the imaging and intervention, as per protocol at this institution.? Patient was | | placed supine on the x-ray table. Right groin prepped in the usual sterile fashion. | | Skin and subcutaneous tissues infiltrated with 1% lidocaine. Right common femoral | | artery was localized under real-time sonographic guidance and accessed using | | micropuncture needle and exchanged for 4-Malawian micropuncture sheath over 0.018 wire. | | 4-Malawian micropuncture sheath was exchanged for 4-Malawian by 11-cm sheath over 0.035, | | 3-mm J-wire. Subsequently, 4-Malawian Omni flush catheter placed with its tip at the L1 | | vertebral level and abdominal pelvic arteriogram obtained in frontal projection. | | Subsequently, catheter was repositioned the L3 vertebral level and pelvic arteriogram | | obtained in left anterior oblique and right anterior oblique projections. Omni flush | | catheter was advanced over 0.035 angled Glidewire with its tip in the left common | | femoral artery. Subsequently, selective Left lower extremity arteriogram obtained from | | left common femoral artery to left foot. Given the hemodynamically significant stenosis | | in proximal and middle and distal thirds of the right superficial femoral artery and | | preocclusive stenoses of the ostium of the left the superficial femoral artery, we | | decided to perform endovascular intervention. 4-Malawian Omni flush catheter was exchanged | | for 0.035, Amplatz wire with its tip in proximal left superficial femoral artery. | | Subsequently, catheter was removed and 4-Malawian by 11 cm sheath was exchanged for | | 5-Malawian by 45-cm destination sheath with its tip in proximal left common femoral | | artery. Subsequently, using combination of 4-Malawian vertebral catheter and 0.035, | | Amplatz wire both were advanced to distal left popliteal artery. Subsequently, Amplatz | | wire was exchanged for 0.014, mailman wire. Vertebral catheter was exchanged for 5 mm x | | 10 cm balloon catheter and balloon angioplasty of the entire length of the left | | supervision femoral artery performed in a distal to proximal fashion. Post angioplasty | | left thigh arteriogram obtained. Then, pullback pressures obtained through the left | | external iliac artery and the proximal left common iliac artery. There was 25-mm | | gradient across the proximal left external iliac artery. Subsequently, 0.014, mailman | | wire was exchanged for 0.035, Amplatz wire. 5-Malawian destination sheath was exchanged | | for 6-Malawian by 45-cm destination sheath. Subsequently, 8 mm x 6 cm self-expanding | | stent was placed across the significant focal stenosis in proximal and mid left external | | iliac artery and a post angioplasty balloon dilatation performed using 7 mm x 4 cm | | balloon catheter. Post angioplasty left iliac arteriogram obtained by injecting through | | the side arm of the 6-Malawian destination sheath. Subsequently, pullback pressures | | obtained across the proximal right common iliac artery. There was no significant | | gradient. Subsequently, all catheters and wires were removed and right groin hemostasis | | obtained using Mynx closure device. Patient tolerated the procedure with no procedural | | complications. FINDINGS:1. Real-time image documenting the entry of micropuncture | | needle into the widely patent right common femoral artery was obtained and copy of the | | image placed in patient's medical records.2. Abdominal aortogram: Single left renal | | artery and single right renal artery are widely patent. Infrarenal aorta is widely | | patent. 50%, eccentric, calcific stenosis of the proximal right common iliac artery. | | Left common iliac artery widely patent. Ostial occlusion the left internal iliac | | artery. Right internal iliac artery is widely patent. Right external iliac artery is | | widely patent. Focal, 70% stenosis of the proximal and mid left external iliac artery.3. | | Left the lower extremity arteriogram: Preocclusive calcific stenosis of the distal | | left common femoral artery extending to left the superficial femoral artery ostium. | | Focal, pre-it was a calcific stenosis in proximal, mid and distal left the superficial | | femoral artery. Left the popliteal artery is widely patent. Three-vessel continuous | | runoff to left foot.4. Right lower extremity arteriogram: Right common femoral artery | | is widely patent. Right profunda femoris artery and its branches are unremarkable. | | Right proximal and mid supervision femoral artery is widely patent. Diffuse calcific, | | more than 70% stenosis of the distal third. Right popliteal artery, 3 vessel runoff | | widely patent to right foot.5. Successful angioplasty the multifocal preocclusive | | stenosis in left distal portion femoral artery using 5-mm balloon angioplasty. | | Successful stenting of the focal, tandem, more than 70% stenosis with 36 -mm gradient in | | left extra iliac artery using 8-mm by 6-cm self-expanding stent with no residual | | stenosis or gradient. 6. Aortic pressure: 153/67 mm Hg, left distal extra iliac artery | | pressure: 121/73, proximal left common iliac artery pressure: 157/78, right external | | iliac artery pressure: 150/74 millimeters Hg. IMPRESSION:1. Successful abdominal | | aortogram and bilateral lower extremity arteriogram.2. Successful angioplasty of the | | significant multifocal preocclusive stenosis in left distal portion femoral artery and | | stenting of the femur neck is significant stenosis in left external iliac artery without | | incidence.3. Patient to return to clinic after two weeks. If patient has persistent | | left lower extremity claudication may consider surgical left distal common femoral | | artery endarterectomy of the calcific plaque.4. Will plan for right superficial femoral | | artery endovascular intervention during two weeks for follow up. | + + IR Angioplasty Fem Pop (05/13/2012 12:24 PM PST) + + | Specimen | + + | | + + + + + | Narrative | Performed At | + + + | [facility] 05/13/2012 | | | 10:20 AM HISTORY: 76 years. Female. Bilateral lower extremity | | | claudication with claudication distal lese than half a block. | | | MEDICATIONS: Isovue 250 135 cc, heparin 6000 units intravenous, | | | Versed 2 milligram intravenous, Fentanyl 100 microgram intravenous. | | | Radiation dose 694 Clementina Sánchez. Fluoroscopy time 12.8 minutes. | | | Intra procedure sedation time 65 minutes. Appropriate physiologic | | | monitoring, maintenance of adequate conscious sedation and | | | independent chcf supervision performed throughout the | | | [...] was placed supine on the x-ray table. Right | | | groin prepped in the usual sterile fashion. Skin and subcutaneous | | | tissues infiltrated with 1% lidocaine. Right common femoral artery | | | was localized under real-time sonographic guidance and accessed | | | using micropuncture needle and exchanged for 4-Malawian micropuncture | | | sheath over 0.018 wire. 4-Malawian micropuncture sheath was exchanged | | | for 4-Malawian by 11-cm sheath over 0.035, 3-mm J-wire. Subsequently, | | | 4-Malawian Omni flush catheter placed with its tip at the L1 vertebral | | | level and abdominal pelvic arteriogram obtained in frontal | | | projection. Subsequently, catheter was repositioned the L3 vertebral | | | level and pelvic arteriogram obtained in left anterior oblique and | | | right anterior oblique projections. Omni flush catheter was advanced | | | over 0.035 angled Glidewire with its tip in the left common femoral | | | artery. Subsequently, selective Left lower extremity arteriogram | | | obtained from left common femoral artery to left foot. Given the | | | hemodynamically significant stenosis in proximal and middle and | | | distal thirds of the right superficial femoral artery and preocclusive | | | stenoses of the ostium of the left the superficial femoral artery, we | | | decided to perform endovascular intervention. 4-Malawian Omni flush | | | catheter was exchanged for 0.035, Amplatz wire with its tip in | | | proximal left superficial femoral artery. Subsequently, catheter was | | | removed and 4-Malawian by 11 cm sheath was exchanged for 5-Malawian by | | | 45-cm destination sheath with its tip in proximal left common | | | femoral artery. Subsequently, using combination of 4-Malawian | | | vertebral catheter and 0.035, Amplatz wire both were advanced to | | | distal left popliteal artery. Subsequently, Amplatz wire was | | | exchanged for 0.014, mailman wire. Vertebral catheter was | | | exchanged for 5 mm x 10 cm balloon catheter and balloon angioplasty of | | | the entire length of the left supervision femoral artery performed in | | | a distal to proximal fashion. Post angioplasty left thigh | | | arteriogram obtained. Then, pullback pressures obtained through | | | the left external iliac artery and the proximal left common iliac | | | artery. There was 25-mm gradient across the proximal left external | | | iliac artery. Subsequently, 0.014, mailman wire was exchanged for | | | 0.035, Amplatz wire. 5-Malawian destination sheath was exchanged for | | | 6-Malawian by 45-cm destination sheath. Subsequently, 8 mm x 6 cm | | | self-expanding stent was placed across the significant focal stenosis | | | in proximal and mid left external iliac artery and a post angioplasty | | | balloon dilatation performed using 7 mm x 4 cm balloon catheter. | | | Post angioplasty left iliac arteriogram obtained by injecting | | | through the side arm of the 6-Malawian destination sheath. | | | Subsequently, pullback pressures obtained across the proximal right | | | common iliac artery. There was no significant gradient. | | | Subsequently, all catheters and wires were removed and right groin | | | hemostasis obtained using Mynx closure device. Patient tolerated the | | | procedure with no procedural complications. FINDINGS: 1. | | | Real-time image documenting the entry of micropuncture needle into | | | the widely patent right common femoral artery was obtained and copy of | | | the image placed in patient's medical records. 2. Abdominal | | | aortogram: Single left renal artery and single right renal artery are | | | widely patent. Infrarenal aorta is widely patent. 50%, eccentric, | | | calcific stenosis of the proximal right common iliac artery. Left | | | common iliac artery widely patent. Ostial occlusion the left | | | internal iliac artery. Right internal iliac artery is widely patent. | | | Right external iliac artery is widely patent. Focal, 70% stenosis | | | of the proximal and mid left external iliac artery. 3. Left the | | | lower extremity arteriogram: Preocclusive calcific stenosis of the | | | distal left common femoral artery extending to left the superficial | | | femoral artery ostium. Focal, pre-it was a calcific stenosis in | | | proximal, mid and distal left the superficial femoral artery. Left | | | the popliteal artery is widely patent. Three-vessel continuous | | | runoff to left foot. 4. Right lower extremity arteriogram: Right | | | common femoral artery is widely patent. Right profunda femoris | | | artery and its branches are unremarkable. Right proximal and mid | | | supervision femoral artery is widely patent. Diffuse calcific, more | | | than 70% stenosis of the distal third. Right popliteal artery, 3 | | | vessel runoff widely patent to right foot. 5. Successful | | | angioplasty the multifocal preocclusive stenosis in left distal | | | portion femoral artery using 5-mm balloon angioplasty. Successful | | | stenting of the focal, tandem, more than 70% stenosis with 36 -mm | | | gradient in left extra iliac artery using 8-mm by 6-cm | | | self-expanding stent with no residual stenosis or gradient. 6. | | | Aortic pressure: 153/67 mm Hg, left distal extra iliac artery | | | pressure: 121/73, proximal left common iliac artery pressure: 157/78, | | | right external iliac artery pressure: 150/74 millimeters Hg. | | | IMPRESSION: 1. Successful abdominal aortogram and bilateral lower | | | extremity arteriogram. 2. Successful angioplasty of the significant | | | multifocal preocclusive stenosis in left distal portion femoral | | | artery and stenting of the femur neck is significant stenosis in left | | | external iliac artery without incidence. 3. Patient to return to | | | clinic after two weeks. If patient has persistent left lower | | | extremity claudication may consider surgical left distal common | | | femoral artery endarterectomy of the calcific plaque. 4. Will plan | | | for right superficial femoral artery endovascular intervention during | | | two weeks for follow up. | | + + + + + | Procedure Note | + + | Roldan, Rad Conversion - 11/06/2018 9:32 PM PDT [facility] | | POPLITEAL05/13/2012 10:20 AM HISTORY:76 years. Female. Bilateral lower extremity | | claudication with claudication distal lese than half a block. MEDICATIONS: Isovue 250 | | 135 cc, heparin 6000 units intravenous, Versed 2 milligram intravenous, Fentanyl 100 | | microgram intravenous. Radiation dose 694 Clementina Sánchez. Fluoroscopy time 12.8 minutes. | | Intra procedure sedation time 65 minutes. Appropriate physiologic monitoring, | | maintenance of adequate conscious sedation and independent chcf supervision | | performed throughout the procedure. No adverse drug reactions. PROCEDURE:Informed | | written consent obtained from the patient after explaining the procedure, risks and | | alternatives. Patient understood the discussion and expressed her wish to proceed. The | | appropriate side and site was labeled and initialed as an independent process antecedent | | to the imaging and intervention, as per protocol at this institution.? Patient was | | placed supine on the x-ray table. Right groin prepped in the usual sterile fashion. | | Skin and subcutaneous tissues infiltrated with 1% lidocaine. Right common femoral | | artery was localized under real-time sonographic guidance and accessed using | | micropuncture needle and exchanged for 4-Malawian micropuncture sheath over 0.018 wire. | | 4-Malawian micropuncture sheath was exchanged for 4-Malawian by 11-cm sheath over 0.035, | | 3-mm J-wire. Subsequently, 4-Malawian Omni flush catheter placed with its tip at the L1 | | vertebral level and abdominal pelvic arteriogram obtained in frontal projection. | | Subsequently, catheter was repositioned the L3 vertebral level and pelvic arteriogram | | obtained in left anterior oblique and right anterior oblique projections. Omni flush | | catheter was advanced over 0.035 angled Glidewire with its tip in the left common | | femoral artery. Subsequently, selective Left lower extremity arteriogram obtained from | | left common femoral artery to left foot. Given the hemodynamically significant stenosis | | in proximal and middle and distal thirds of the right superficial femoral artery and | | preocclusive stenoses of the ostium of the left the superficial femoral artery, we | | decided to perform endovascular intervention. 4-Malawian Omni flush catheter was exchanged | | for 0.035, Amplatz wire with its tip in proximal left superficial femoral artery. | | Subsequently, catheter was removed and 4-Malawian by 11 cm sheath was exchanged for | | 5-Malawian by 45-cm destination sheath with its tip in proximal left common femoral | | artery. Subsequently, using combination of 4-Malawian vertebral catheter and 0.035, | | Amplatz wire both were advanced to distal left popliteal artery. Subsequently, Amplatz | | wire was exchanged for 0.014, mailman wire. Vertebral catheter was exchanged for 5 mm x | | 10 cm balloon catheter and balloon angioplasty of the entire length of the left | | supervision femoral artery performed in a distal to proximal fashion. Post angioplasty | | left thigh arteriogram obtained. Then, pullback pressures obtained through the left | | external iliac artery and the proximal left common iliac artery. There was 25-mm | | gradient across the proximal left external iliac artery. Subsequently, 0.014, mailman | | wire was exchanged for 0.035, Amplatz wire. 5-Malawian destination sheath was exchanged | | for 6-Malawian by 45-cm destination sheath. Subsequently, 8 mm x 6 cm self-expanding | | stent was placed across the significant focal stenosis in proximal and mid left external | | iliac artery and a post angioplasty balloon dilatation performed using 7 mm x 4 cm | | balloon catheter. Post angioplasty left iliac arteriogram obtained by injecting through | | the side arm of the 6-Malawian destination sheath. Subsequently, pullback pressures | | obtained across the proximal right common iliac artery. There was no significant | | gradient. Subsequently, all catheters and wires were removed and right groin hemostasis | | obtained using Mynx closure device. Patient tolerated the procedure with no procedural | | complications. FINDINGS:1. Real-time image documenting the entry of micropuncture | | needle into the widely patent right common femoral artery was obtained and copy of the | | image placed in patient's medical records.2. Abdominal aortogram: Single left renal | | artery and single right renal artery are widely patent. Infrarenal aorta is widely | | patent. 50%, eccentric, calcific stenosis of the proximal right common iliac artery. | | Left common iliac artery widely patent. Ostial occlusion the left internal iliac | | artery. Right internal iliac artery is widely patent. Right external iliac artery is | | widely patent. Focal, 70% stenosis of the proximal and mid left external iliac artery.3. | | Left the lower extremity arteriogram: Preocclusive calcific stenosis of the distal | | left common femoral artery extending to left the superficial femoral artery ostium. | | Focal, pre-it was a calcific stenosis in proximal, mid and distal left the superficial | | femoral artery. Left the popliteal artery is widely patent. Three-vessel continuous | | runoff to left foot.4. Right lower extremity arteriogram: Right common femoral artery | | is widely patent. Right profunda femoris artery and its branches are unremarkable. | | Right proximal and mid supervision femoral artery is widely patent. Diffuse calcific, | | more than 70% stenosis of the distal third. Right popliteal artery, 3 vessel runoff | | widely patent to right foot.5. Successful angioplasty the multifocal preocclusive | | stenosis in left distal portion femoral artery using 5-mm balloon angioplasty. | | Successful stenting of the focal, tandem, more than 70% stenosis with 36 -mm gradient in | | left extra iliac artery using 8-mm by 6-cm self-expanding stent with no residual | | stenosis or gradient. 6. Aortic pressure: 153/67 mm Hg, left distal extra iliac artery | | pressure: 121/73, proximal left common iliac artery pressure: 157/78, right external | | iliac artery pressure: 150/74 millimeters Hg. IMPRESSION:1. Successful abdominal | | aortogram and bilateral lower extremity arteriogram.2. Successful angioplasty of the | | significant multifocal preocclusive stenosis in left distal portion femoral artery and | | stenting of the femur neck is significant stenosis in left external iliac artery without | | incidence.3. Patient to return to clinic after two weeks. If patient has persistent | | left lower extremity claudication may consider surgical left distal common femoral | | artery endarterectomy of the calcific plaque.4. Will plan for right superficial femoral | | artery endovascular intervention during two weeks for follow up. | + + IR Angio Upper/Lower Extremity (05/13/2012 12:24 PM PST) + + | Specimen | + + | | + + + + + | Narrative | Performed At | + + + | [facility] 05/13/2012 | | | 10:20 AM HISTORY: 76 years. Female. Bilateral lower extremity | | | claudication with claudication distal lese than half a block. | | | MEDICATIONS: Isovue 250 135 cc, heparin 6000 units intravenous, | | | Versed 2 milligram intravenous, Fentanyl 100 microgram intravenous. | | | Radiation dose 694 Clementina Sánchez. Fluoroscopy time 12.8 minutes. | | | Intra procedure sedation time 65 minutes. Appropriate physiologic | | | monitoring, maintenance of adequate conscious sedation and | | | independent chcf supervision performed throughout the | | | [...] was placed supine on the x-ray table. Right | | | groin prepped in the usual sterile fashion. Skin and subcutaneous | | | tissues infiltrated with 1% lidocaine. Right common femoral artery | | | was localized under real-time sonographic guidance and accessed | | | using micropuncture needle and exchanged for 4-Malawian micropuncture | | | sheath over 0.018 wire. 4-Malawian micropuncture sheath was exchanged | | | for 4-Malawian by 11-cm sheath over 0.035, 3-mm J-wire. Subsequently, | | | 4-Malawian Omni flush catheter placed with its tip at the L1 vertebral | | | level and abdominal pelvic arteriogram obtained in frontal | | | projection. Subsequently, catheter was repositioned the L3 vertebral | | | level and pelvic arteriogram obtained in left anterior oblique and | | | right anterior oblique projections. Omni flush catheter was advanced | | | over 0.035 angled Glidewire with its tip in the left common femoral | | | artery. Subsequently, selective Left lower extremity arteriogram | | | obtained from left common femoral artery to left foot. Given the | | | hemodynamically significant stenosis in proximal and middle and | | | distal thirds of the right superficial femoral artery and preocclusive | | | stenoses of the ostium of the left the superficial femoral artery, we | | | decided to perform endovascular intervention. 4-Malawian Omni flush | | | catheter was exchanged for 0.035, Amplatz wire with its tip in | | | proximal left superficial femoral artery. Subsequently, catheter was | | | removed and 4-Malawian by 11 cm sheath was exchanged for 5-Malawian by | | | 45-cm destination sheath with its tip in proximal left common | | | femoral artery. Subsequently, using combination of 4-Malawian | | | vertebral catheter and 0.035, Amplatz wire both were advanced to | | | distal left popliteal artery. Subsequently, Amplatz wire was | | | exchanged for 0.014, mailman wire. Vertebral catheter was | | | exchanged for 5 mm x 10 cm balloon catheter and balloon angioplasty of | | | the entire length of the left supervision femoral artery performed in | | | a distal to proximal fashion. Post angioplasty left thigh | | | arteriogram obtained. Then, pullback pressures obtained through | | | the left external iliac artery and the proximal left common iliac | | | artery. There was 25-mm gradient across the proximal left external | | | iliac artery. Subsequently, 0.014, mailman wire was exchanged for | | | 0.035, Amplatz wire. 5-Malawian destination sheath was exchanged for | | | 6-Malawian by 45-cm destination sheath. Subsequently, 8 mm x 6 cm | | | self-expanding stent was placed across the significant focal stenosis | | | in proximal and mid left external iliac artery and a post angioplasty | | | balloon dilatation performed using 7 mm x 4 cm balloon catheter. | | | Post angioplasty left iliac arteriogram obtained by injecting | | | through the side arm of the 6-Malawian destination sheath. | | | Subsequently, pullback pressures obtained across the proximal right | | | common iliac artery. There was no significant gradient. | | | Subsequently, all catheters and wires were removed and right groin | | | hemostasis obtained using Mynx closure device. Patient tolerated the | | | procedure with no procedural complications. FINDINGS: 1. | | | Real-time image documenting the entry of micropuncture needle into | | | the widely patent right common femoral artery was obtained and copy of | | | the image placed in patient's medical records. 2. Abdominal | | | aortogram: Single left renal artery and single right renal artery are | | | widely patent. Infrarenal aorta is widely patent. 50%, eccentric, | | | calcific stenosis of the proximal right common iliac artery. Left | | | common iliac artery widely patent. Ostial occlusion the left | | | internal iliac artery. Right internal iliac artery is widely patent. | | | Right external iliac artery is widely patent. Focal, 70% stenosis | | | of the proximal and mid left external iliac artery. 3. Left the | | | lower extremity arteriogram: Preocclusive calcific stenosis of the | | | distal left common femoral artery extending to left the superficial | | | femoral artery ostium. Focal, pre-it was a calcific stenosis in | | | proximal, mid and distal left the superficial femoral artery. Left | | | the popliteal artery is widely patent. Three-vessel continuous | | | runoff to left foot. 4. Right lower extremity arteriogram: Right | | | common femoral artery is widely patent. Right profunda femoris | | | artery and its branches are unremarkable. Right proximal and mid | | | supervision femoral artery is widely patent. Diffuse calcific, more | | | than 70% stenosis of the distal third. Right popliteal artery, 3 | | | vessel runoff widely patent to right foot. 5. Successful | | | angioplasty the multifocal preocclusive stenosis in left distal | | | portion femoral artery using 5-mm balloon angioplasty. Successful | | | stenting of the focal, tandem, more than 70% stenosis with 36 -mm | | | gradient in left extra iliac artery using 8-mm by 6-cm | | | self-expanding stent with no residual stenosis or gradient. 6. | | | Aortic pressure: 153/67 mm Hg, left distal extra iliac artery | | | pressure: 121/73, proximal left common iliac artery pressure: 157/78, | | | right external iliac artery pressure: 150/74 millimeters Hg. | | | IMPRESSION: 1. Successful abdominal aortogram and bilateral lower | | | extremity arteriogram. 2. Successful angioplasty of the significant | | | multifocal preocclusive stenosis in left distal portion femoral | | | artery and stenting of the femur neck is significant stenosis in left | | | external iliac artery without incidence. 3. Patient to return to | | | clinic after two weeks. If patient has persistent left lower | | | extremity claudication may consider surgical left distal common | | | femoral artery endarterectomy of the calcific plaque. 4. Will plan | | | for right superficial femoral artery endovascular intervention during | | | two weeks for follow up. | | + + + + + | Procedure Note | + + | Roldan, Rad Conversion - 11/06/2018 9:32 PM PDT [facility] | | POPLITEAL05/13/2012 10:20 AM HISTORY:76 years. Female. Bilateral lower extremity | | claudication with claudication distal lese than half a block. MEDICATIONS: Isovue 250 | | 135 cc, heparin 6000 units intravenous, Versed 2 milligram intravenous, Fentanyl 100 | | microgram intravenous. Radiation dose 694 Clementina Sánchez. Fluoroscopy time 12.8 minutes. | | Intra procedure sedation time 65 minutes. Appropriate physiologic monitoring, | | maintenance of adequate conscious sedation and independent chcf supervision | | performed throughout the procedure. No adverse drug reactions. PROCEDURE:Informed | | written consent obtained from the patient after explaining the procedure, risks and | | alternatives. Patient understood the discussion and expressed her wish to proceed. The | | appropriate side and site was labeled and initialed as an independent process antecedent | | to the imaging and intervention, as per protocol at this institution.? Patient was | | placed supine on the x-ray table. Right groin prepped in the usual sterile fashion. | | Skin and subcutaneous tissues infiltrated with 1% lidocaine. Right common femoral | | artery was localized under real-time sonographic guidance and accessed using | | micropuncture needle and exchanged for 4-Malawian micropuncture sheath over 0.018 wire. | | 4-Malawian micropuncture sheath was exchanged for 4-Malawian by 11-cm sheath over 0.035, | | 3-mm J-wire. Subsequently, 4-Malawian Omni flush catheter placed with its tip at the L1 | | vertebral level and abdominal pelvic arteriogram obtained in frontal projection. | | Subsequently, catheter was repositioned the L3 vertebral level and pelvic arteriogram | | obtained in left anterior oblique and right anterior oblique projections. Omni flush | | catheter was advanced over 0.035 angled Glidewire with its tip in the left common | | femoral artery. Subsequently, selective Left lower extremity arteriogram obtained from | | left common femoral artery to left foot. Given the hemodynamically significant stenosis | | in proximal and middle and distal thirds of the right superficial femoral artery and | | preocclusive stenoses of the ostium of the left the superficial femoral artery, we | | decided to perform endovascular intervention. 4-Malawian Omni flush catheter was exchanged | | for 0.035, Amplatz wire with its tip in proximal left superficial femoral artery. | | Subsequently, catheter was removed and 4-Malawian by 11 cm sheath was exchanged for | | 5-Malawian by 45-cm destination sheath with its tip in proximal left common femoral | | artery. Subsequently, using combination of 4-Malawian vertebral catheter and 0.035, | | Amplatz wire both were advanced to distal left popliteal artery. Subsequently, Amplatz | | wire was exchanged for 0.014, mailman wire. Vertebral catheter was exchanged for 5 mm x | | 10 cm balloon catheter and balloon angioplasty of the entire length of the left | | supervision femoral artery performed in a distal to proximal fashion. Post angioplasty | | left thigh arteriogram obtained. Then, pullback pressures obtained through the left | | external iliac artery and the proximal left common iliac artery. There was 25-mm | | gradient across the proximal left external iliac artery. Subsequently, 0.014, mailman | | wire was exchanged for 0.035, Amplatz wire. 5-Malawian destination sheath was exchanged | | for 6-Malawian by 45-cm destination sheath. Subsequently, 8 mm x 6 cm self-expanding | | stent was placed across the significant focal stenosis in proximal and mid left external | | iliac artery and a post angioplasty balloon dilatation performed using 7 mm x 4 cm | | balloon catheter. Post angioplasty left iliac arteriogram obtained by injecting through | | the side arm of the 6-Malawian destination sheath. Subsequently, pullback pressures | | obtained across the proximal right common iliac artery. There was no significant | | gradient. Subsequently, all catheters and wires were removed and right groin hemostasis | | obtained using Mynx closure device. Patient tolerated the procedure with no procedural | | complications. FINDINGS:1. Real-time image documenting the entry of micropuncture | | needle into the widely patent right common femoral artery was obtained and copy of the | | image placed in patient's medical records.2. Abdominal aortogram: Single left renal | | artery and single right renal artery are widely patent. Infrarenal aorta is widely | | patent. 50%, eccentric, calcific stenosis of the proximal right common iliac artery. | | Left common iliac artery widely patent. Ostial occlusion the left internal iliac | | artery. Right internal iliac artery is widely patent. Right external iliac artery is | | widely patent. Focal, 70% stenosis of the proximal and mid left external iliac artery.3. | | Left the lower extremity arteriogram: Preocclusive calcific stenosis of the distal | | left common femoral artery extending to left the superficial femoral artery ostium. | | Focal, pre-it was a calcific stenosis in proximal, mid and distal left the superficial | | femoral artery. Left the popliteal artery is widely patent. Three-vessel continuous | | runoff to left foot.4. Right lower extremity arteriogram: Right common femoral artery | | is widely patent. Right profunda femoris artery and its branches are unremarkable. | | Right proximal and mid supervision femoral artery is widely patent. Diffuse calcific, | | more than 70% stenosis of the distal third. Right popliteal artery, 3 vessel runoff | | widely patent to right foot.5. Successful angioplasty the multifocal preocclusive | | stenosis in left distal portion femoral artery using 5-mm balloon angioplasty. | | Successful stenting of the focal, tandem, more than 70% stenosis with 36 -mm gradient in | | left extra iliac artery using 8-mm by 6-cm self-expanding stent with no residual | | stenosis or gradient. 6. Aortic pressure: 153/67 mm Hg, left distal extra iliac artery | | pressure: 121/73, proximal left common iliac artery pressure: 157/78, right external | | iliac artery pressure: 150/74 millimeters Hg. IMPRESSION:1. Successful abdominal | | aortogram and bilateral lower extremity arteriogram.2. Successful angioplasty of the | | significant multifocal preocclusive stenosis in left distal portion femoral artery and | | stenting of the femur neck is significant stenosis in left external iliac artery without | | incidence.3. Patient to return to clinic after two weeks. If patient has persistent | | left lower extremity claudication may consider surgical left distal common femoral | | artery endarterectomy of the calcific plaque.4. Will plan for right superficial femoral | | artery endovascular intervention during two weeks for follow up. | + + IR Aortogram Abdominal w Runoff (05/13/2012 12:24 PM PST) + + | Specimen | + + | | + + + + + | Narrative | Performed At | + + + | [facility] 05/13/2012 | | | 10:20 AM HISTORY: 76 years. Female. Bilateral lower extremity | | | claudication with claudication distal lese than half a block. | | | MEDICATIONS: Isovue 250 135 cc, heparin 6000 units intravenous, | | | Versed 2 milligram intravenous, Fentanyl 100 microgram intravenous. | | | Radiation dose 694 Clementina Sánchez. Fluoroscopy time 12.8 minutes. | | | Intra procedure sedation time 65 minutes. Appropriate physiologic | | | monitoring, maintenance of adequate conscious sedation and | | | independent chcf supervision performed throughout the | | | [...] was placed supine on the x-ray table. Right | | | groin prepped in the usual sterile fashion. Skin and subcutaneous | | | tissues infiltrated with 1% lidocaine. Right common femoral artery | | | was localized under real-time sonographic guidance and accessed | | | using micropuncture needle and exchanged for 4-Malawian micropuncture | | | sheath over 0.018 wire. 4-Malawian micropuncture sheath was exchanged | | | for 4-Malawian by 11-cm sheath over 0.035, 3-mm J-wire. Subsequently, | | | 4-Malawian Omni flush catheter placed with its tip at the L1 vertebral | | | level and abdominal pelvic arteriogram obtained in frontal | | | projection. Subsequently, catheter was repositioned the L3 vertebral | | | level and pelvic arteriogram obtained in left anterior oblique and | | | right anterior oblique projections. Omni flush catheter was advanced | | | over 0.035 angled Glidewire with its tip in the left common femoral | | | artery. Subsequently, selective Left lower extremity arteriogram | | | obtained from left common femoral artery to left foot. Given the | | | hemodynamically significant stenosis in proximal and middle and | | | distal thirds of the right superficial femoral artery and preocclusive | | | stenoses of the ostium of the left the superficial femoral artery, we | | | decided to perform endovascular intervention. 4-Malawian Omni flush | | | catheter was exchanged for 0.035, Amplatz wire with its tip in | | | proximal left superficial femoral artery. Subsequently, catheter was | | | removed and 4-Malawian by 11 cm sheath was exchanged for 5-Malawian by | | | 45-cm destination sheath with its tip in proximal left common | | | femoral artery. Subsequently, using combination of 4-Malawian | | | vertebral catheter and 0.035, Amplatz wire both were advanced to | | | distal left popliteal artery. Subsequently, Amplatz wire was | | | exchanged for 0.014, mailman wire. Vertebral catheter was | | | exchanged for 5 mm x 10 cm balloon catheter and balloon angioplasty of | | | the entire length of the left supervision femoral artery performed in | | | a distal to proximal fashion. Post angioplasty left thigh | | | arteriogram obtained. Then, pullback pressures obtained through | | | the left external iliac artery and the proximal left common iliac | | | artery. There was 25-mm gradient across the proximal left external | | | iliac artery. Subsequently, 0.014, mailman wire was exchanged for | | | 0.035, Amplatz wire. 5-Malawian destination sheath was exchanged for | | | 6-Malawian by 45-cm destination sheath. Subsequently, 8 mm x 6 cm | | | self-expanding stent was placed across the significant focal stenosis | | | in proximal and mid left external iliac artery and a post angioplasty | | | balloon dilatation performed using 7 mm x 4 cm balloon catheter. | | | Post angioplasty left iliac arteriogram obtained by injecting | | | through the side arm of the 6-Malawian destination sheath. | | | Subsequently, pullback pressures obtained across the proximal right | | | common iliac artery. There was no significant gradient. | | | Subsequently, all catheters and wires were removed and right groin | | | hemostasis obtained using Mynx closure device. Patient tolerated the | | | procedure with no procedural complications. FINDINGS: 1. | | | Real-time image documenting the entry of micropuncture needle into | | | the widely patent right common femoral artery was obtained and copy of | | | the image placed in patient's medical records. 2. Abdominal | | | aortogram: Single left renal artery and single right renal artery are | | | widely patent. Infrarenal aorta is widely patent. 50%, eccentric, | | | calcific stenosis of the proximal right common iliac artery. Left | | | common iliac artery widely patent. Ostial occlusion the left | | | internal iliac artery. Right internal iliac artery is widely patent. | | | Right external iliac artery is widely patent. Focal, 70% stenosis | | | of the proximal and mid left external iliac artery. 3. Left the | | | lower extremity arteriogram: Preocclusive calcific stenosis of the | | | distal left common femoral artery extending to left the superficial | | | femoral artery ostium. Focal, pre-it was a calcific stenosis in | | | proximal, mid and distal left the superficial femoral artery. Left | | | the popliteal artery is widely patent. Three-vessel continuous | | | runoff to left foot. 4. Right lower extremity arteriogram: Right | | | common femoral artery is widely patent. Right profunda femoris | | | artery and its branches are unremarkable. Right proximal and mid | | | supervision femoral artery is widely patent. Diffuse calcific, more | | | than 70% stenosis of the distal third. Right popliteal artery, 3 | | | vessel runoff widely patent to right foot. 5. Successful | | | angioplasty the multifocal preocclusive stenosis in left distal | | | portion femoral artery using 5-mm balloon angioplasty. Successful | | | stenting of the focal, tandem, more than 70% stenosis with 36 -mm | | | gradient in left extra iliac artery using 8-mm by 6-cm | | | self-expanding stent with no residual stenosis or gradient. 6. | | | Aortic pressure: 153/67 mm Hg, left distal extra iliac artery | | | pressure: 121/73, proximal left common iliac artery pressure: 157/78, | | | right external iliac artery pressure: 150/74 millimeters Hg. | | | IMPRESSION: 1. Successful abdominal aortogram and bilateral lower | | | extremity arteriogram. 2. Successful angioplasty of the significant | | | multifocal preocclusive stenosis in left distal portion femoral | | | artery and stenting of the femur neck is significant stenosis in left | | | external iliac artery without incidence. 3. Patient to return to | | | clinic after two weeks. If patient has persistent left lower | | | extremity claudication may consider surgical left distal common | | | femoral artery endarterectomy of the calcific plaque. 4. Will plan | | | for right superficial femoral artery endovascular intervention during | | | two weeks for follow up. | | + + + + + | Procedure Note | + + | Graeme Montilla Conversion - 11/06/2018 9:32 PM PDT [facility] ANGIOPLASTY FEMORAL | | POPLITEAL05/13/2012 10:20 AM HISTORY:76 years. Female. Bilateral lower extremity | | claudication with claudication distal lese than half a block. MEDICATIONS: Isovue 250 | | 135 cc, heparin 6000 units intravenous, Versed 2 milligram intravenous, Fentanyl 100 | | microgram intravenous. Radiation dose 694 Clementina Sánchez. Fluoroscopy time 12.8 minutes. | | Intra procedure sedation time 65 minutes. Appropriate physiologic monitoring, | | maintenance of adequate conscious sedation and independent chcf supervision | | performed throughout the procedure. No adverse drug reactions. PROCEDURE:Informed | | written consent obtained from the patient after explaining the procedure, risks and | | alternatives. Patient understood the discussion and expressed her wish to proceed. The | | appropriate side and site was labeled and initialed as an independent process antecedent | | to the imaging and intervention, as per protocol at this institution.? Patient was | | placed supine on the x-ray table. Right groin prepped in the usual sterile fashion. | | Skin and subcutaneous tissues infiltrated with 1% lidocaine. Right common femoral | | artery was localized under real-time sonographic guidance and accessed using | | micropuncture needle and exchanged for 4-Malawian micropuncture sheath over 0.018 wire. | | 4-Malawian micropuncture sheath was exchanged for 4-Malawian by 11-cm sheath over 0.035, | | 3-mm J-wire. Subsequently, 4-Malawian Omni flush catheter placed with its tip at the L1 | | vertebral level and abdominal pelvic arteriogram obtained in frontal projection. | | Subsequently, catheter was repositioned the L3 vertebral level and pelvic arteriogram | | obtained in left anterior oblique and right anterior oblique projections. Omni flush | | catheter was advanced over 0.035 angled Glidewire with its tip in the left common | | femoral artery. Subsequently, selective Left lower extremity arteriogram obtained from | | left common femoral artery to left foot. Given the hemodynamically significant stenosis | | in proximal and middle and distal thirds of the right superficial femoral artery and | | preocclusive stenoses of the ostium of the left the superficial femoral artery, we | | decided to perform endovascular intervention. 4-Malawian Omni flush catheter was exchanged | | for 0.035, Amplatz wire with its tip in proximal left superficial femoral artery. | | Subsequently, catheter was removed and 4-Malawian by 11 cm sheath was exchanged for | | 5-Malawian by 45-cm destination sheath with its tip in proximal left common femoral | | artery. Subsequently, using combination of 4-Malawian vertebral catheter and 0.035, | | Amplatz wire both were advanced to distal left popliteal artery. Subsequently, Amplatz | | wire was exchanged for 0.014, mailman wire. Vertebral catheter was exchanged for 5 mm x | | 10 cm balloon catheter and balloon angioplasty of the entire length of the left | | supervision femoral artery performed in a distal to proximal fashion. Post angioplasty | | left thigh arteriogram obtained. Then, pullback pressures obtained through the left | | external iliac artery and the proximal left common iliac artery. There was 25-mm | | gradient across the proximal left external iliac artery. Subsequently, 0.014, mailman | | wire was exchanged for 0.035, Amplatz wire. 5-Malawian destination sheath was exchanged | | for 6-Malawian by 45-cm destination sheath. Subsequently, 8 mm x 6 cm self-expanding | | stent was placed across the significant focal stenosis in proximal and mid left external | | iliac artery and a post angioplasty balloon dilatation performed using 7 mm x 4 cm | | balloon catheter. Post angioplasty left iliac arteriogram obtained by injecting through | | the side arm of the 6-Malawian destination sheath. Subsequently, pullback pressures | | obtained across the proximal right common iliac artery. There was no significant | | gradient. Subsequently, all catheters and wires were removed and right groin hemostasis | | obtained using Mynx closure device. Patient tolerated the procedure with no procedural | | complications. FINDINGS:1. Real-time image documenting the entry of micropuncture | | needle into the widely patent right common femoral artery was obtained and copy of the | | image placed in patient's medical records.2. Abdominal aortogram: Single left renal | | artery and single right renal artery are widely patent. Infrarenal aorta is widely | | patent. 50%, eccentric, calcific stenosis of the proximal right common iliac artery. | | Left common iliac artery widely patent. Ostial occlusion the left internal iliac | | artery. Right internal iliac artery is widely patent. Right external iliac artery is | | widely patent. Focal, 70% stenosis of the proximal and mid left external iliac artery.3. | | Left the lower extremity arteriogram: Preocclusive calcific stenosis of the distal | | left common femoral artery extending to left the superficial femoral artery ostium. | | Focal, pre-it was a calcific stenosis in proximal, mid and distal left the superficial | | femoral artery. Left the popliteal artery is widely patent. Three-vessel continuous | | runoff to left foot.4. Right lower extremity arteriogram: Right common femoral artery | | is widely patent. Right profunda femoris artery and its branches are unremarkable. | | Right proximal and mid supervision femoral artery is widely patent. Diffuse calcific, | | more than 70% stenosis of the distal third. Right popliteal artery, 3 vessel runoff | | widely patent to right foot.5. Successful angioplasty the multifocal preocclusive | | stenosis in left distal portion femoral artery using 5-mm balloon angioplasty. | | Successful stenting of the focal, tandem, more than 70% stenosis with 36 -mm gradient in | | left extra iliac artery using 8-mm by 6-cm self-expanding stent with no residual | | stenosis or gradient. 6. Aortic pressure: 153/67 mm Hg, left distal extra iliac artery | | pressure: 121/73, proximal left common iliac artery pressure: 157/78, right external | | iliac artery pressure: 150/74 millimeters Hg. IMPRESSION:1. Successful abdominal | | aortogram and bilateral lower extremity arteriogram.2. Successful angioplasty of the | | significant multifocal preocclusive stenosis in left distal portion femoral artery and | | stenting of the femur neck is significant stenosis in left external iliac artery without | | incidence.3. Patient to return to clinic after two weeks. If patient has persistent | | left lower extremity claudication may consider surgical left distal common femoral | | artery endarterectomy of the calcific plaque.4. Will plan for right superficial femoral | | artery endovascular intervention during two weeks for follow up. 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
--- OUTSIDE RECORDS SUMMARY | ~2019-11-01 | XMS | Encounter Summary ---
Demographics + + + | Address | [id number] [place] [address] | | | [place] [address] | + + + | Home Phone | | + + + | Preferred Language | Unknown | + + + | Marital Status | | + + + | Tenriism Affiliation | Unknown | + + + | Race | White | + + + | Ethnic Group | Not or | + + + Author + + + | Author | [facility] | | | and [place] | + + + | Organization | [facility] | | | and [...] Team Providers + +------+ + | Care Coding Specialist Home Health Name | Role | Phone | + +------+ + | Miquel Greenfield DO | PCP | | + +------+ + Encounter Details +--------+ + + + + | Date | Type | Department | Care Team | Description | +--------+ + + + + | 05/16/ | Orders Only | [facility] | Catherine Lee, | | | 2018 | | CARDIOLOGY FELICITAS | MD [address] | | | | | [address] | [place], [place] | | | | | [place], [place] | [address] | | | | | [address] | | | | | | [phone] | | | +--------+ + + + [...]
--- OUTSIDE RECORDS SUMMARY | ~2019-11-01 | XMS | Encounter Summary ---
Demographics + + + | Address | [address] [place] [address] | | | [place] [address] | + + + | Home Phone | | + + + | Preferred Language | Unknown | + + + | Marital Status | | + + + | Moravian Affiliation | Unknown | + + + | Race | White | + + + | Ethnic Group | Not or | + + + Author + + + | Author | [facility] | | | and [place] | + + + | Organization | [facility] | | | [...] Team Providers + +------+ + | Care Government Service Executive Name | Role | Phone | + +------+ + | Miquel Greenfield DO | PCP | | + +------+ + Encounter Details +--------+ + + + + | Date | Type | Department | Care Team | Description | +--------+ + + + + | 05/13/ | Orders Only | [facility] | Conversion | | | 2013 | | CONVERSION [address] | Transaction, | | | | | [address] | Provider Unknown | | | | | [place], [place] | [phone] | | | | | [address] | | | | | | [phone] | | | +--------+ + + + [...]
--- OUTSIDE RECORDS SUMMARY | ~2019-11-01 | XMS | Encounter Summary ---
Demographics + + + | Address | [address] [place] [address] | | | [place] [address] | + + + | Home Phone | | + + + | Preferred Language | Unknown | + + + | Marital Status | | + + + | Baptist Affiliation | Unknown | + + + | Race | White | + + + | Ethnic Group | Not or | + + + Author + + + | Author | [facility] | | | and [place] | + + + | Organization | [facility] | | | [...] Team Providers + +------+ + | Care Special Education Para Professional Name | Role | Phone | + +------+ + | Miquel Greenfield DO | PCP | | + +------+ + Encounter Details +--------+ + + + + | Date | Type | Department | Care Team | Description | +--------+ + + + + | 05/14/ | Orders Only | [facility] | Catherine Lee, | | | 2017 | | CARDIOLOGY FELICITAS | MD [address] | | | | | [address] | [place], [place] | | | | | [place], [place] | [address] | | | | | [address] | | | | | | [phone] | | | +--------+ + + + [...]
--- OUTSIDE RECORDS SUMMARY | ~2019-11-01 | XMS | Clinical Summary ---
Demographics + + + | Address | [address] [place] [address] | | | [place] [address] | + + + | Home Phone | | + + + | Preferred Language | Unknown | + + + | Marital Status | | + + + | Jainism Affiliation | Unknown | + + + | Race | White | + + + | Ethnic Group | Not or | + + + Author + + + | Author | [facility] | | | and [place] | + + + | Organization | [facility] | | | [...] Team Providers + +------+ + | Care Rope Twisting Machine Operator Name | Role | Phone | + +------+ + | Miquel Greenfield DO | PCP | | + +------+ + Allergies + [...] | + + + + + + Medications + + + +---------+------+------+-------+ | Medication | Sig | Dispensed | Refills | Star | End | Statu | | | | | | t | Date | s | | | | | | Date | | | + + + +---------+------+------+-------+ | aspirin (ASPIRIN | Take 81 mg by mouth | | 0 | 04/18 | | Activ | | LOW DOSE) 81 MG | daily. | | | 10/03 | | e | | tablet | | | | 13 | | | + + + +---------+------+------+-------+ | rosuvastatin | Take 1 tablet by | | 0 | 02/2 | | Activ | | (CRESTOR) 40 MG | mouth daily. | | | 8/20 | | e | | tablet | | | | 18 | | | + + + +---------+------+------+-------+ | metoprolol | Take 1 tablet by | 90 | 3 | 04/2 | | Activ | | tartrate (LOPRESSOR) | mouth daily. | tablet | | 8/20 | | e | | 100 mg tablet | | | | 17 | | | + + + +---------+------+------+-------+ | amLODIPine | Take 1 tablet by | | 0 | 02/2 | | Activ | | (NORVASC) 10 MG | mouth daily. | | | 0/20 | | e | | tablet | | | | 19 | | | + + + +---------+------+------+-------+ | senna (SENNA) 8.6 | Take 1 tablet by | | 0 | 01/1 | | Activ | | mg tablet | mouth daily. | | | 5/20 | | e | | | | | | 15 | | | + + + +---------+------+------+-------+ | cholecalciferol | Take 25 mcg by mouth | | 0 | | | Activ | | (VITAMIN D-3) 25 mcg | Daily. | | | | | e | | (1,000 units) | | | | | | | | tablet | | | | | | | + + + +---------+------+------+-------+ | lisinopril | Take 5 mg by mouth | | 0 | | | Activ | | (PRINIVIL, ZESTRIL) | Daily. | | | | | e | | 5 mg tablet | | | | | | | + + + +---------+------+------+-------+ Active Problems + + + | Problem | Noted Date | + + + | Impaired glucose tolerance | 05/14/2017 | + + + | Atherosclerotic PVD with intermittent claudication | 10/12/2012 | + + + | Bilateral claudication of lower limb | 05/13/2012 | + + + | PVD (peripheral vascular disease) | | + + + | Hyperlipidemia | | + + + | Essential hypertension | | + + + Family History + + +------+ [...] +------+ + + Social History + +-------+ +--------+------+ | Tobacco Use | Types | Packs/Day | Years | Date | | | | | Used | | + +-------+ +--------+------+ | Former Smoker | | 1.5 | | | + +-------+ +--------+------+ + +---+---+---+ | Smokeless Tobacco: | | | | | Never Used | | | | + +---+---+---+ + + | Comments: Quit 30 years ago | + + + + +---------+ + | Alcohol Use | Drinks/Week | oz/Week | Comments | + + +---------+ + | Not Currently | | | Alcoholic | | | | | Drinks/day: occ | + + +---------+ + + + + + | Alcohol Habits | Answer | Date Recorded | + + + + | How often do you have a drink containing | Never | 05/12/2019 | | alcohol? | | | + + + + | How many drinks containing alcohol do you | Not asked | | | have on a typical day when you are | | | | drinking? | | | + + + + | How often do you have six or more drinks on | Not asked | | | one occasion? | | | + + + + + + + | Sex Assigned at | Date Recorded | | | | + + + | Not on file | | + + + Last Filed Vital Signs + + + + + | Vital Sign | Reading | Time Taken | Comments | + + + + + | Blood Pressure | 106/58 | 05/12/2019 11:41 AM | | | | | PST | | + + + + + | Pulse | 69 | 05/12/2019 11:41 AM | | | | | PST | | + + + + + | Temperature | - | - | | + + + + + | Respiratory Rate | 16 | 05/10/2015 11:08 AM | | | | | PST | | + + + + + | Oxygen Saturation | 96% | 05/12/2019 11:41 AM | | | | | PST | | + + + + + | Inhaled Oxygen | - | - | | | Concentration | | | | + + + + + | Weight | 88.5 kg (195 lb) | 05/12/2019 11:41 AM | | | | | PST | | + + + + + | Height | 167.6 cm (5' 6") | 05/12/2019 11:41 AM | | | | | PST | | + + + + + | Body Mass Index | 31.47 | 05/12/2019 11:41 AM | | | | | PST | | + + + + + Plan of Treatment + + + + + | Health Maintenance | Due Date | Last | Comments | | | | Done | | + + + + + | Med Mgmt: Vit D | | | | | | 8 | | | + + + + + | Medication | | | | | Management | 8 | | | + + [...] | | | | | Pneumococcal 65+ (1 | 3 | | | | of 1 - PPSV23) | | | | + + + + + | Med Mgmt: Cr | | 05/17/19 | | | | 9 | 18 | | + + + + + | Med Mgmt: K | | 05/17/19 | | | | 9 | 18 | | + + + + + | Adult Annual | | | | | Wellness Visit | 9 | | | + + + + + | Vaccine: Influenza | | | | | (#1) | 0 | | | + + + + + Results Not on filefrom Last 3 Months Insurance + +--------+ +--------+ +---------+--------+ | Payer | Benefi | Subscriber | Effect | Phone | Address | Type | | | t Plan | ID | daniel | | | | | | / | | Dates | | | | | | Group | | | | | | + +--------+ +--------+ +---------+--------+ | MEDICARE | MEDICA | [id number] | 06/16/19 | [phone] | | Medica | | | RE | | 03-Pre | 5 | | re | | | PART A | | sent | | | | | | AND B | | | | | | + +--------+ +--------+ +---------+--------+ | BCBS | BCBS | [id number] | 09/15/19 | | | Indemn | | | OOS | 5 | 19-Pre | | | ity | | | PAR | | sent | | | | + +--------+ +--------+ +---------+--------+ | | CHAMPV | [id number] | | [phone] | | Indemn | | | A | | 008-Pr | 7 | | ity | | | | | esent | | | | + +--------+ +--------+ +---------+--------+ + +--------+ +--------+ + + | Guarantor Name | Accoun | Relation to | Date | Phone | Billing Address | | | t Type | Patient | of | | | | | | | | | | + +--------+ +--------+ + + | Juanita Cantu | Person | Self [birth year] | [phone] | | | al/Fam | | 1936 | [phone] | [place] | | | mely | | | 1 (Home) | [address] | + +--------+ +--------+ + + Advance Directives + + + + + | Type | Date Recorded | Patient | Explanation | | | | Varnish Maker | | + + + + + | Power of | | | | | Marine Extension Agent | | | | + + + + + | Advance | | | | | Directive | | | | + + + + +
--- OUTSIDE RECORDS SUMMARY | ~2019-11-01 | XMS | Encounter Summary ---
Demographics + + + | Address | [address] [place] [address] | | | [place] [address] | + + + | Home Phone | | + + + | Preferred Language | Unknown | + + + | Marital Status | | + + + | Catholic Affiliation | Unknown | + + + | Race | White | + + + | Ethnic Group | Not or | + + + Author + + + | Author | [facility] | | | and [place] | + + + | Organization | [facility] | | [...] Team Providers + +------+ + | Care Carpet Mechanic Name | Role | Phone | + +------+ + | Miquel Greenfield DO | PCP | | + +------+ + Encounter Details +--------+ + + + + | Date | Type | Department | Care Team | Description | +--------+ + + + + | 03/31/ | Orders Only | [facility] | Conversion | | | 2015 | | CONVERSION [address] | Transaction, | | | | | [address] | Provider Unknown | | | | | [place], [place] | [phone] | | | | | [address] | | | | | | [phone] | | | +--------+ + + + [...]
--- OUTSIDE RECORDS SUMMARY | ~2019-11-01 | XMS | Encounter Summary ---
Demographics + + + | Address | [address] [place] [address] | | | [place] [address] | + + + | Home Phone | | + + + | Preferred Language | Unknown | + + + | Marital Status | | + + + | Zoroastrianism Affiliation | Unknown | + + + | Race | White | + + + | Ethnic Group | Not or | + + + Author + + + | Author | [facility] | | | and [place] | + + + | Organization | [facility] | | | and [...] Team Providers + +------+ + | Care Senior Research Manager Name | Role | Phone | + +------+ + | Miquel Greenfield DO | PCP | | + +------+ + Encounter Details +--------+ + + + + | Date | Type | Department | Care Team | Description | +--------+ + + + + | 05/06/ | Orders Only | [facility] | Catherine Lee, | | | 2019 | | CARDIOLOGY FELICITAS | MD [address] | | | | | [address] | [place], [place] | | | | | [place], [place] | [address] | | | | | [address] | | | | | | [phone] | | | +--------+ + + + [...]
--- OUTSIDE RECORDS SUMMARY | ~2019-11-01 | XMS | Encounter Summary ---
Demographics + + + | Address | [address] [place] [address] | | | [place] [address] | + + + | Home Phone | | + + + | Preferred Language | Unknown | + + + | Marital Status | | + + + | Voodoo Affiliation | Unknown | + + + | Race | White | + + + | Ethnic Group | Not or | + + + Author + + + | Author | [facility] | | | and [place] | + + + | Organization | [facility] | | | [...] Team Providers + +------+ + | Care Buildings And Grounds Director Name | Role | Phone | [...] + + | 05/12/ | Office | [facility] | Catherine Moody, | PVD (peripheral | | 2019 | Visit | CARDIOLOGY HANDY | MD Aylin SCHMITT | vascular disease) | | | | [address] | [place], [place] | (Primary Dx); | | | | [address] [facility] | [address] | Essential | | | | [place] | | hypertension | | | | [address] | | | | | | [phone] | | | +--------+---------+ + + + [...]
--- OUTSIDE RECORDS SUMMARY | ~2019-11-01 | XMS | Encounter Summary ---
Demographics + + + | Address | [address] [place] [address] | | | [place] [address] | + + + | Home Phone | | + + + | Preferred Language | Unknown | + + + | Marital Status | | + + + | Yazidi Affiliation | Unknown | + + + | Race | White | + + + | Ethnic Group | Not or | + + + Author + + + | Author | [facility] | | | and [place] | + + + | Organization | [facility] | | | [...] Team Providers + +------+ + | Care Canoe Inspector Name | Role | Phone | + +------+ + | Miquel Greenfield DO | PCP | | + +------+ + Encounter Details +--------+ + + + + | Date | Type | Department | Care Team | Description | +--------+ + + + + | 12/23/ | Orders Only | [facility] | Conversion | | | 2008 | | CONVERSION | Transaction, | | | | | [address] | Provider Unknown | | | | | [address] [place], [place] | | | | | | [address] | (Fax) | | | | | [phone] | | | +--------+ + + + [...]
--- OUTSIDE RECORDS SUMMARY | ~2019-11-01 | XMS | Encounter Summary ---
Demographics + + + | Address | [id number] [place] [address] | | | [place] [address] | + + + | Home Phone | | + + + | Preferred Language | Unknown | + + + | Marital Status | | + + + | Mormonism Affiliation | Unknown | + + + [...] Team Providers + +------+ + | Care Mold Designer Name | Role | Phone | + +------+ + PCP | Unavailable | + +------+ + Encounter Details +--------+ + + + + | Date | Type | Department | Care Team | Description | +--------+ + + + + | 10/12/ | Hospital | [facility] | Conversion | Atherosclerotic PVD | | 2012 | Encounter | [facility] | Transaction, | with intermittent | | | | CLINICAL DECISION | Provider Unknown | claudication (HCC) | | | | [address] | [phone] | | | | | [place], [place] | | | | | | [address] | Eddy Douglas, | | | | | [phone] | [address] | | | | | | [place], [place] | | | | | | [address] | | | | | | | [...] 10/12/121731 Date of Service: 10/12/121731 Status: Signed Family Support Worker: Coreen Aguirre RN (Registered Nurse) D/c instructions given and discussed, Pt. States understanding no further questions. Site c/di/ and soft. Pt. granddaughter providing transportation home. Coreen Aguirre RN docume nted in this encounter H&P Notes Jeffy Douglas MD, MD - 10/12/2012 10:44 AM PDTFormatting of this note might be diffe rent from the original. H&P by Eddy Douglas MD at 10/12/12 1045 Author: Eddy Douglas MD Service: (none) Author Type: Physician Filed: 10/12/12 1049 Date of Service: 10/12/121043 Status: Addendum Family Support Worker: Eddy Douglas MD (Physician) Related Notes: Original Note by Eddy Douglas MD (Physician) filed at 10/12/12 1048 [facility] Service: Interventional Radiology Admission History & Physical [...] tablet Take 81 mg by mouth daily. Xymmlri-Dltuxavlz-Nosr 1000-400-15 MG TABS Take by mouth 3 [...] deformities, no edema, no erythema. 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 Lef t DP is weak. Rest not felt. Neuro: Physiological, no localizing findings. Skin: Normal, n o rashes, no lesions noted. MARRY NESBITTIR ANGIOPLASTY FEMORAL POPLITEAL 05/13/2012 10:20 AM HISTORY:76 [...] maintenance of adequate conscious sedation and independent custodial supervision performed throughout the procedure. No adverse [...] accessed using micropuncture needle and exchanged for 4-Omani micropu ncture sheath over 0.018 wire. 4-Omani micropuncture sheath was exchanged for 4-Omani by 11-cm sheath over 0.035, 3-mm J-wire. Subsequently, 4-Omani Omni flush catheter placed wit h its [...] we decided to perform endovascular inte rvention. 4-Omani Omni flush catheter was exchanged for 0.035, Amplatz wire with its tip in proximal left superficial femoral artery. Subsequently, catheter was removed and 4-Omani by 11 cm sheath was exchanged for 5-Omani by 45-cm destination sheath with its tip in proxi mal left common femoral artery. Subsequently, using combination of 4-Omani vertebral joselito ter and 0.035, Amplatz wire [...] wire was exchanged for 0.035, Amplatz wire. 5-Omani destination sheath was exchanged for 6-Omani by 45-cm destination s margaret. Subsequently, 8 mm x 6 cm self-expanding stent was placed across the significant foc al stenosis in proximal and mid left external iliac artery and a post angioplasty balloon di latation performed using 7 mm x 4 cm balloon catheter. Post angioplasty left iliac arteriog lindsey obtained by injecting through the side arm of the 6-Omani destination sheath. Subseque ntly, pullback pressures obtained [...] ( Bleeding, infection, contrast allergy, nephropathy, stroke, [place] and ) and alternative options. Moderate Sedation [...] conscious sedation and | | | independent custodial supervision performed throughout the | | | [...] | using micropuncture needle and exchanged for 4-Omani micropuncture | | | sheath over 0.018 wire. 4-Omani micropuncture sheath was exchanged | | | for 4-Omani by 11-cm sheath over 0.035, 3-mm J-wire. Subsequently, | | | 4-Omani Omni flush catheter placed with its tip [...] to perform | | | endovascular intervention. 4-Omani Omni flush catheter was exchanged | | | for 0.035, Amplatz wire with its tip in proximal right superficial | | | femoral artery. Subsequently, catheter was removed and 4-Omani by | | | 11 cm sheath was exchanged for 5-Omani by 45-cm destination sheath | | | with its tip in proximal right superficial femoral artery. | | | Subsequently, using combination of 4-Omani vertebral catheter and | | | 0.035, [...] adequate conscious | | sedation and independent custodial supervision performed throughout the | | procedure. [...] micropuncture needle and exchanged for | | 4-Omani micropuncture sheath over 0.018 wire. 4-Omani micropuncture sheath was | | exchanged for 4-Omani by 11-cm sheath over 0.035, 3-mm J-wire. Subsequently, 4-Omani | | Omni flush catheter placed with [...] artery, we decided to perform endovascular intervention. 4-Omani | | Omni flush catheter was exchanged for 0.035, Amplatz wire with its tip in proximal right | | superficial femoral artery. Subsequently, catheter was removed and 4-Omani by 11 cm | | sheath was exchanged for 5-Omani by 45-cm destination sheath with its tip in proximal | | right superficial femoral artery. Subsequently, using combination of 4-Omani vertebral | | catheter and 0.035, Amplatz [...] conscious sedation and | | | independent custodial supervision performed throughout the | | | [...] | using micropuncture needle and exchanged for 4-Omani micropuncture | | | sheath over 0.018 wire. 4-Omani micropuncture sheath was exchanged | | | for 4-Omani by 11-cm sheath over 0.035, 3-mm J-wire. Subsequently, | | | 4-Omani Omni flush catheter placed with its tip [...] to perform | | | endovascular intervention. 4-Omani Omni flush catheter was exchanged | | | for 0.035, Amplatz wire with its tip in proximal right superficial | | | femoral artery. Subsequently, catheter was removed and 4-Omani by | | | 11 cm sheath was exchanged for 5-Omani by 45-cm destination sheath | | | with its tip in proximal right superficial femoral artery. | | | Subsequently, using combination of 4-Omani vertebral catheter and | | | 0.035, [...] - 11/06/2018 9:32 PM PDT MARRY NESBITTRACHELLE ANGIOGRAM EXTREMITY | | RIGHT10/12/2012 10:28 AM [...] adequate conscious | | sedation and independent custodial supervision performed throughout the | | procedure. [...] micropuncture needle and exchanged for | | 4-Omani micropuncture sheath over 0.018 wire. 4-Omani micropuncture sheath was | | exchanged for 4-Omani by 11-cm sheath over 0.035, 3-mm J-wire. Subsequently, 4-Omani | | Omni flush catheter placed with [...] artery, we decided to perform endovascular intervention. 4-Omani | | Omni flush catheter was exchanged for 0.035, Amplatz wire with its tip in proximal right | | superficial femoral artery. Subsequently, catheter was removed and 4-Omani by 11 cm | | sheath was exchanged for 5-Omani by 45-cm destination sheath with its tip in proximal | | right superficial femoral artery. Subsequently, using combination of 4-Omani vertebral | | catheter and 0.035, Amplatz [...] conscious sedation and | | | independent custodial supervision performed throughout the | | | [...] | using micropuncture needle and exchanged for 4-Omani micropuncture | | | sheath over 0.018 wire. 4-Omani micropuncture sheath was exchanged | | | for 4-Omani by 11-cm sheath over 0.035, 3-mm J-wire. Subsequently, | | | 4-Omani Omni flush catheter placed with its tip [...] to perform | | | endovascular intervention. 4-Omani Omni flush catheter was exchanged | | | for 0.035, Amplatz wire with its tip in proximal right superficial | | | femoral artery. Subsequently, catheter was removed and 4-Omani by | | | 11 cm sheath was exchanged for 5-Omani by 45-cm destination sheath | | | with its tip in proximal right superficial femoral artery. | | | Subsequently, using combination of 4-Omani vertebral catheter and | | | 0.035, [...] - 11/06/2018 9:32 PM PDT MARRY NESBITTRACHELLE ANGIOGRAM EXTREMITY | | RIGHT10/12/2012 10:28 AM [...] adequate conscious | | sedation and independent custodial supervision performed throughout the | | procedure. [...] micropuncture needle and exchanged for | | 4-Omani micropuncture sheath over 0.018 wire. 4-Omani micropuncture sheath was | | exchanged for 4-Omani by 11-cm sheath over 0.035, 3-mm J-wire. Subsequently, 4-Omani | | Omni flush catheter placed with [...] artery, we decided to perform endovascular intervention. 4-Omani | | Omni flush catheter was exchanged for 0.035, Amplatz wire with its tip in proximal right | | superficial femoral artery. Subsequently, catheter was removed and 4-Omani by 11 cm | | sheath was exchanged for 5-Omani by 45-cm destination sheath with its tip in proximal | | right superficial femoral artery. Subsequently, using combination of 4-Omani vertebral | | catheter and 0.035, Amplatz [...] conscious sedation and | | | independent custodial supervision performed throughout the | | | [...] | using micropuncture needle and exchanged for 4-Omani micropuncture | | | sheath over 0.018 wire. 4-Omani micropuncture sheath was exchanged | | | for 4-Omani by 11-cm sheath over 0.035, 3-mm J-wire. Subsequently, | | | 4-Omani Omni flush catheter placed with its tip [...] to perform | | | endovascular intervention. 4-Omani Omni flush catheter was exchanged | | | for 0.035, Amplatz wire with its tip in proximal right superficial | | | femoral artery. Subsequently, catheter was removed and 4-Omani by | | | 11 cm sheath was exchanged for 5-Omani by 45-cm destination sheath | | | with its tip in proximal right superficial femoral artery. | | | Subsequently, using combination of 4-Omani vertebral catheter and | | | 0.035, [...] - 11/06/2018 9:32 PM PDT MARRY NESBITTRACHELLE ANGIOGRAM EXTREMITY | | RIGHT10/12/2012 10:28 AM [...] adequate conscious | | sedation and independent custodial supervision performed throughout the | | procedure. [...] micropuncture needle and exchanged for | | 4-Omani micropuncture sheath over 0.018 wire. 4-Omani micropuncture sheath was | | exchanged for 4-Omani by 11-cm sheath over 0.035, 3-mm J-wire. Subsequently, 4-Omani | | Omni flush catheter placed with [...] artery, we decided to perform endovascular intervention. 4-Omani | | Omni flush catheter was exchanged for 0.035, Amplatz wire with its tip in proximal right | | superficial femoral artery. Subsequently, catheter was removed and 4-Omani by 11 cm | | sheath was exchanged for 5-Omani by 45-cm destination sheath with its tip in proximal | | right superficial femoral artery. 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
[~2019-11-01 05:50] MED LIST changes: +NORCO 5-325 TA1 EACH PO
--- OUTSIDE RECORDS SUMMARY | 2019-11-01 05:52 | XMS ---
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 [place] has no Care Guidelines for this patient. [place] VISIT COUNT (12 MO.) [address] [facility] [place] TOTAL 3 NOTE: Visits indicate total known visits. ED/C VISIT TRACKING (12 MO.) 11/01/2019 05:[address] [facility] [place] TYPE: Emergency COMPLAINT: - HEADACHE 10/31/2019 19:28 [facility] TYPE: Emergency COMPLAINT: - HEADACHE 10/29/2019 20:59 [facility] TYPE: Emergency COMPLAINT: - HIGH BLOOD PRESSURE,HEADACHE INPATIENT VISIT TRACKING (12 MO.) 01/25/2019 08:27 [facility] TYPE: Intensive Care COMPLAINT: - RIGHT COMMON FEMORAL ARTERY STENOSIS [email or web address]
== END 2019-11-01 09:23 | disposition home or self-care (01) ==
LOC: ED 05:50
DX: R51 Headache (principal); R47.01 Aphasia; I10 Essential (primary) hypertension; Z88.2 Allergy status to sulfonamides; Z88.8 Allergy status to other drugs, medicaments and biological substances; Z79.899 Other long term (current) drug therapy; Z79.82 Long term (current) use of aspirin
CPT/HCPCS: 70551; 99284-25